=== PATIENT | male | born 1955 | race Caucasian/White ===

== ENCOUNTER → 2017-01-10 | Outpatient (CLI) | payer OTHER ==
[2017-01-10 15:35] LABS: Anisocytosis Slight; CH 33.3; CHCM 34.1; HCT 22.1 % (39.0-53.0); HDW 4.19; HGB 7.5 gm/dL (13.0-17.5); MCH 33.4 pg (25.0-35.0); MCV 98.4 fL (80.0-100.0); Macrocytosis Slight; Mean Platelet Volume 9.3; Poikilocytosis Moderate; RBC 2.25 m/uL (4.30-5.90); RDW 19.1 % (11.5-15.5); WBC 2.2 k/uL (3.8-10.6)
[2017-01-10 15:45] LABS: INR 1.3 (<1.1); Prothrombin Time 12.9 sec (9.0-12.0)
[2017-01-10 15:49] LABS: ALT 26 U/L (21-72); AST 31 U/L (17-59); Alkaline Phosphatase 119 U/L (38-126); Anion Gap 11 mmol/L; Blood Urea Nitrogen 32 mg/dL (9-20); Calcium 9.2 mg/dL (8.4-10.2); Carbon Dioxide 24 mmol/L (22-30); Chloride 105 mmol/L (98-107); Glucose 119 mg/dL (74-99); Non-African American GFR(MDRD) 56 (>60 ml/min/1.73 sqM); Potassium 4.4 mmol/L (3.5-5.1); Sodium 140 mmol/L (137-145); Total Bilirubin 9.2 mg/dL (0.2-1.3); Total Protein 7.5 g/dL (6.3-8.2)
== END | disposition home or self-care (01) ==
LOC: LABWHC1 15:14
PROVIDERS: ATTEND Internal Medicine Gastroenterology
DX: K74.60 Unspecified cirrhosis of liver (principal)
CPT/HCPCS: 36415; 80053; 85027; 85610

== ENCOUNTER → 2017-03-21 | Outpatient (CLI) | payer OTHER ==
[2017-03-24 06:48] LABS: Cotinine <2.0 ng/mL (<2.0); Nicotine <2.0 ng/mL (<2.0)
== END | disposition home or self-care (01) ==
LOC: LABWHC1 11:55
PROVIDERS: ATTEND Family Medicine
DX: Z13.9 Encounter for screening, unspecified (principal); K74.69 Other cirrhosis of liver
CPT/HCPCS: 36415; G0480; 80323

== ENCOUNTER → 2017-04-06 | Outpatient (CLI) | payer OTHER ==
[2017-04-06 14:07] LABS: INR 1.4 (<1.2); Prothrombin Time 13.4 sec (9.0-12.0)
[2017-04-06 14:17] LABS: ALT 34 U/L (21-72); AST 31 U/L (17-59); Alkaline Phosphatase 139 U/L (38-126); Anion Gap 10 mmol/L; Blood Urea Nitrogen 36 mg/dL (9-20); Calcium 8.9 mg/dL (8.4-10.2); Carbon Dioxide 25 mmol/L (22-30); Chloride 101 mmol/L (98-107); Glucose 404 mg/dL (74-99); Non-African American GFR(MDRD) 52 (>60 ml/min/1.73 sqM); Potassium 4.8 mmol/L (3.5-5.1); Sodium 136 mmol/L (137-145); Total Bilirubin 7.4 mg/dL (0.2-1.3); Total Protein 6.9 g/dL (6.3-8.2)
[2017-04-06 14:34] LABS: Anisocytosis Slight; CH 32.1; CHCM 33.1; HCT 22.2 % (39.0-53.0); HDW 4.22; HGB 7.6 gm/dL (13.0-17.5); Hypochromasia Slight; MCH 33.4 pg (25.0-35.0); MCHC 34.1 g/dL (31.0-37.0); MCV 97.8 fL (80.0-100.0); Macrocytosis Slight; Mean Platelet Volume 8.5; Poikilocytosis Moderate; RBC 2.27 m/uL (4.30-5.90); RDW 18.6 % (11.5-15.5); WBC 2.2 k/uL (3.8-10.6)
[2017-04-07 14:42] LABS: Hepatitis B Virus DNA DETECTED (Not detected); Hepatitis B Virus DNA, Quant 10 IU/mL (<10)
== END | disposition home or self-care (01) ==
LOC: LABWHC1 13:03
PROVIDERS: ATTEND Internal Medicine Gastroenterology
DX: K74.60 Unspecified cirrhosis of liver (principal); B18.1 Chronic viral hepatitis B without delta-agent
CPT/HCPCS: 36415; 80053; 82105; 85027; 85610; 86707; 87350; 87517

== ENCOUNTER → 2017-06-21 | Outpatient (CLI) | payer OTHER ==
[2017-06-21 13:12] LABS: INR 1.4 (<1.2); Prothrombin Time 13.8 sec (9.0-12.0)
[2017-06-21 13:18] LABS: Anisocytosis Slight; Basophils % (A) 1 %; CH 31.3; CHCM 32.6; Eosinophils % (A) 2 %; HCT 22.8 % (39.0-53.0); HDW 3.98; HGB 7.5 gm/dL (13.0-17.5); Hypochromasia Slight; Luc # (Auto) 0.05; Luc % (Auto) 3; Lymphocytes # (A) 0.5 k/uL (1.0-4.8); Lymphocytes % (A) 26 %; MCHC 33.1 g/dL (31.0-37.0); MCV 96.7 fL (80.0-100.0); Macrocytosis Slight; Mean Platelet Volume 10.3; Monocytes # (A) 0.2 k/uL (0-1.0); Monocytes % (A) 9 %; Neutrophils # (A) 1.3 k/uL (1.3-7.7); Neutrophils % (A) 60 %; Poikilocytosis Slight; RBC 2.36 m/uL (4.30-5.90); RDW 19.5 % (11.5-15.5); WBC 2.1 k/uL (3.8-10.6); WBC (Perox) 2.28
[2017-06-21 13:58] LABS: ALT 32 U/L (21-72); AST 28 U/L (17-59); Alkaline Phosphatase 124 U/L (38-126); Anion Gap 8 mmol/L; Blood Urea Nitrogen 22 mg/dL (9-20); Calcium 9.1 mg/dL (8.4-10.2); Carbon Dioxide 25 mmol/L (22-30); Chloride 102 mmol/L (98-107); Glucose 290 mg/dL (74-99); Non-African American GFR(MDRD) >60 (>60 ml/min/1.73 sqM); Potassium 4.2 mmol/L (3.5-5.1); Sodium 135 mmol/L (137-145); Total Bilirubin 6.6 mg/dL (0.2-1.3); Total Protein 6.7 g/dL (6.3-8.2)
[2017-06-23 07:53] LABS: Cotinine <2.0 ng/mL (<2.0); Nicotine <2.0 ng/mL (<2.0)
== END | disposition home or self-care (01) ==
LOC: LABWHC1 12:15
PROVIDERS: ATTEND Family Medicine
DX: D64.9 Anemia, unspecified (principal); K74.60 Unspecified cirrhosis of liver; F17.200 Nicotine dependence, unspecified, uncomplicated
CPT/HCPCS: 80053; 85025; 85610; 36415; G0480; 80323

== ENCOUNTER → 2017-08-17 | Outpatient (CLI) | payer OTHER ==
[2017-08-17 11:20] LABS: ALT 38 U/L (21-72); AST 31 U/L (17-59); Albumin 3.7 g/dL (3.5-5.0); Alkaline Phosphatase 135 U/L (38-126); Anion Gap 12 mmol/L; Blood Urea Nitrogen 43 mg/dL (9-20); Carbon Dioxide 25 mmol/L (22-30); Chloride 101 mmol/L (98-107); Glucose 267 mg/dL (74-99); Potassium 4.7 mmol/L (3.5-5.1); Sodium 138 mmol/L (137-145); Total Bilirubin 7.5 mg/dL (0.2-1.3); Total Protein 6.5 g/dL (6.3-8.2)
[2017-08-17 11:22] LABS: INR 1.4 (<1.2); Prothrombin Time 13.1 sec (9.0-12.0)
[2017-08-17 12:57] LABS: Anisocytosis Slight; HCT 21.4 % (39.0-53.0); HGB 7.2 gm/dL (13.0-17.5); MCH 32.2 pg (25.0-35.0); MCHC 33.5 g/dL (31.0-37.0); MCV 96.2 fL (80.0-100.0); Macrocytosis Slight; Mean Platelet Volume 8.9; Poikilocytosis Moderate; RBC 2.23 m/uL (4.30-5.90); RDW 19.2 % (11.5-15.5); WBC 2.1 k/uL (3.8-10.6)
[2017-08-17 14:53] LABS: Platelet Count 38 k/uL (150-450)
== END | disposition home or self-care (01) ==
LOC: LABWHC1 10:18
PROVIDERS: ATTEND Internal Medicine Gastroenterology
DX: K74.60 Unspecified cirrhosis of liver (principal)
CPT/HCPCS: 36415; 80053; 85027; 85610

== ENCOUNTER → 2017-08-23 | Outpatient (CLI) | payer OTHER ==
--- NOTE | 2017-08-23 13:51 | BD ---
EXAMINATION TYPE: MG DEXA axial skeleton. DATE OF EXAM: 08/23/2017 COMPARISON: none CLINICAL HISTORY: awaiting liver transplant pre procedure Height: 5'8 Weight: 262 FRAX RISK QUESTIONS: Alcohol (3 or more units per day): no Family History (Parent hip fracture): no Glucocorticoids (More than 3mos): no (Ex: prednisone, prednisolone, methylprednisolone, dexamethasone, and hydrocortisone). History of Fracture in Adulthood: no Secondary Osteoporosis: 1. Type 1 Diabetes: no 2. Hyperthyroidism: no 3. Menopause before 45: na 4. Malnutrition: no 5. Chronic liver disease: yes Rheumatoid Arthritis: no Current Tobacco Use: no RISK FACTORS HISTORY OF: Lost more than 2 inches in height since high school: Poor Health: waiting for liver transplant MEDICATIONS: Additional Medications: waiting for liver transplant,pain, water pill, Additional History: waiting for liver transplant EXAM MEASUREMENTS: Bone mineral densitometry was performed using the [employer]. Bone mineral density as measured about the Lumbar spine is: ----- L1-L4(G/cm2): 1.142 T Score Values are as follows: ----- L2: -1.6 ----- L3: 0.7 ----- L4: 0.0 ----- L1-L4: -0.3 Bone mineral density about the R hip (g/cm2): 0.743 Bone mineral density about the L hip (g/cm2): 0.862 T Score values are as follows: -----R Neck: -2.1 -----L Neck: -1.3 -----R Total: -1.4 -----L Total: -0.6 IMPRESSION: Osteopenia (T Score between -2.5 and -1 as noted by T score values at femoral neck level in both hips . There is slightly increased risk of fracture and the patient may be considered for treatment. Puneet arthur 2-5 years. NOTE: T-SCORE=SD OF THE YOUNG ADULT MEAN.
== END | disposition home or self-care (01) ==
LOC: RADBDWWP 12:38
PROVIDERS: ATTEND Internal Medicine Gastroenterology
DX: Z01.818 Encounter for other preprocedural examination (principal); M85.851 Other specified disorders of bone density and structure, right thigh; M85.852 Other specified disorders of bone density and structure, left thigh; K74.60 Unspecified cirrhosis of liver; Z76.82 Awaiting organ transplant status
CPT/HCPCS: 77080

== ENCOUNTER → 2017-10-18 | Outpatient (CLI) | payer OTHER ==
[2017-10-18 11:25] LABS: Albumin 3.5 g/dL (3.5-5.0); Calcium 8.8 mg/dL (8.4-10.2); Potassium 4.4 mmol/L (3.5-5.1); Total Bilirubin 5.1 mg/dL (0.2-1.3); Total Protein 6.3 g/dL (6.3-8.2)
[2017-10-18 11:43] LABS: Anisocytosis Slight; HCT 23.8 % (39.0-53.0); HGB 8.2 gm/dL (13.0-17.5); MCH 33.5 pg (25.0-35.0); MCHC 34.3 g/dL (31.0-37.0); MCV 97.7 fL (80.0-100.0); Macrocytosis Slight; Mean Platelet Volume 8.3; Poikilocytosis Moderate; RBC 2.44 m/uL (4.30-5.90); RDW 18.2 % (11.5-15.5); WBC 2.9 k/uL (3.8-10.6)
[2017-10-18 11:51] LABS: Platelet Count 36 k/uL (150-450)
[2017-10-18 12:26] LABS: INR 1.3 (<1.2); Prothrombin Time 12.5 sec (9.0-12.0)
== END | disposition home or self-care (01) ==
LOC: LABWHC1 10:46
PROVIDERS: ATTEND Internal Medicine Gastroenterology
DX: K74.60 Unspecified cirrhosis of liver (principal)
CPT/HCPCS: 36415; 80053; 85027; 85610

== ENCOUNTER 2017-11-18 12:40 | Emergency (ER) | payer OTHER ==
--- NOTE | 2017-11-18 13:49 | ED ---
General Adult HPI - General Chief complaint: Recheck/Abnormal Lab/Rx Stated complaint: Fall Time Seen by Provider: 11/18/17 12:56 Source: patient Mode of arrival: wheelchair Limitations: no limitations - History of Present Illness Initial comments: Patient is a 62-year-old male presenting to the emergency department for evaluation for liver disease. Patient is currently being evaluated by [facility] for possible liver transplant and was seen by his neurologist today and sent here for further evaluation. Sisters at bedside and states that he is progressively getting worse in that his functional status is decreased and then he cannot do simple tasks as he wants could. He also appears to be more jaundiced. Patient admits to diffuse pain including back pain but is unable to give complete review of systems due to mentation. - Related Data Home Medications Medication Instructions Recorded Confirmed Entecavir [Baraclude] 0.5 mg PO DAILY 03/10/14 11/18/17 DULoxetine HCL [Cymbalta] 60 mg PO BID 04/14/15 11/18/17 Ranitidine HCl [Zantac] 150 mg PO BID 04/14/15 11/18/17 Tamsulosin HCl [Flomax] 0.4 mg PO HS 04/14/15 11/18/17 Lactulose 20 gm PO TID-W/MEALS 07/06/16 11/18/17 Atorvastatin [Lipitor] 10 mg PO HS 04/16/17 11/18/17 Furosemide [Lasix] 20 mg PO TID 11/18/17 11/18/17 HYDROmorphone [Dilaudid] 2 mg PO TID 11/18/17 11/18/17 Lisinopril [Zestril] 2.5 mg PO DAILY 11/18/17 11/18/17 [place]-3 Fatty Acids/Fish Oil [Fish 1 cap PO DAILY 11/18/17 11/18/17 Oil 1,000 mg Softgel] Omeprazole [PriLOSEC] 20 mg PO BID 11/18/17 11/18/17 Requip (Unknown Dose) 1 tab PO HS 11/18/17 11/18/17 Vit C/E/Zn/Coppr/Lutein/Zeaxan 1 cap PO BID 11/18/17 11/18/17 [Preservision Areds 2 Softgel] Previous Rx's Medication Instructions Recorded Gabapentin [Neurontin] 300 mg PO TID #90 cap 04/18/17 Spironolactone [Aldactone] 100 mg PO BID #60 tab 04/18/17 Allergies Allergy/AdvReac Type Severity Reaction Status Date / Time Iodinated Contrast- Oral and Allergy Rash/Hives Verified 11/18/17 13:15 IV Dye shellfish derived [Shellfish] AdvReac complications Verified 11/18/17 13:15 with liver Review of Systems ROS Statement: Those systems with pertinent positive or pertinent negative responses have been documented in the HPI. Unable to give complete review of systems secondary to mental status. Musculoskeletal: Positive for back pain Skin: Positive for color change. ROS Other: All systems not noted in ROS Statement are negative. Past Medical History Past Medical History: Diabetes Mellitus, Fibromyalgia, Liver Disease, Rheumatoid Arthritis (RA) Additional Past Medical History / Comment(s): neck/back pain, neuropathy, hep B , [place], cirrhosis of liver. 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 General Exam - General Exam Comments Initial Comments: Physical Exam Constitutional: Pt is oriented to person, place,. Pt appears well-developed. No distress. HENT: Head: Normocephalic and atraumatic. Eyes: EOM are normal. Scleral icterus present bilaterally Neck: Normal range of motion. Neck supple. Cardiovascular: Normal rate, regular rhythm, S1 normal, S2 normal and normal heart sounds. Exam reveals no gallop and no friction rub. No murmur heard. Pulmonary/Chest: Effort normal and breath sounds normal. No tachypnea and no bradypnea. No respiratory distress. No wheezes or rales noted. Abdominal: Soft. Bowel sounds are normal. Pt exhibits no shifting dullness, no distension, no pulsatile liver, no fluid wave, no abdominal bruit and no ascites. There is no tenderness. There is no rigidity, no rebound, no guarding, no tenderness at McBurney's point and negative Manriquez's sign. Musculoskeletal: Normal range of motion. Neurological: Pt is alert and oriented to person, place, . No cranial nerve deficit. Asterixis present Skin: Skin is warm and dry. No rash noted. Pt is not diaphoretic. No erythema. Jaundice present in face and thorax Psychiatric: Not able to express thoughts. Limitations: no limitations Course Vital Signs 11/18/17 12:51 Temperature 99.6 F Pulse Rate 87 Respiratory 18 Rate Blood Pressure 128/57 O2 Sat by Pulse 98 Oximetry Medical Decision Making - Medical Decision Making Laboratory studies revealed that there is no significant leukocytosis and hemoglobin also low at 7.2, was at baseline. There is also evidence of thrombocytopenia with platelet count of 52 but this again appears to be at baseline. Coagulation studies showed that her INR was 1.3 and PT 12.5 and PTT 24.5. Additionally, ammonia level was measured at 68 and bilirubin at 7.7. The office of Dr. Patterson, who is the patient's liver specialist, was contacted and results were discussed with them. They advised that the patient would be likely consider to be added to the liver transplant list on Tuesday. They also felt that disposition discretion will be left to the ED physician but based on the laboratory studies discuss, there was no clear evidence that the patient should be admitted or placed in observation. Chest x-ray was also performed and showed no evidence of infiltrate.Explained all labs and diagnostic test results and that we will discharge the patient home and patient is to follow up with PCP in 1-2 days and return to the ED if symptoms worsen. Pt's sister is agreeable to plan. - Lab Data Result diagrams: 11/18/17 13:29 11/18/17 13:29 Lab Results 11/18/17 11/18/17 11/18/17 Range/Units 13:29 13:29 13:29 WBC 4.0 (3.8-10.6) k/uL RBC 2.16 L (4.30-5.90) m/uL Hgb 7.2 L (13.0-17.5) gm/dL Hct 20.6 L (39.0-53.0) % MCV 95.2 (80.0-100.0) fL MCH 33.2 (25.0-35.0) pg MCHC 34.8 (31.0-37.0) g/dL RDW 18.8 H (11.5-15.5) % Plt Count 52 L (150-450) k/uL Neutrophils % 67 % Lymphocytes % 20 % Monocytes % 9 % Eosinophils % 1 % Basophils % 0 % Neutrophils # 2.7 (1.3-7.7) k/uL Lymphocytes # 0.8 L (1.0-4.8) k/uL Monocytes # 0.3 (0-1.0) k/uL Eosinophils # 0.0 (0-0.7) k/uL Basophils # 0.0 (0-0.2) k/uL Manual Slide Review Performed Hyperchromasia Slight Poikilocytosis Marked Anisocytosis Slight Macrocytosis Slight PT (9.0-12.0) sec INR (<1.2) APTT (22.0-30.0) sec Sodium 141 (137-145) mmol/L Potassium 4.9 (3.5-5.1) mmol/L Chloride 105 (98-107) mmol/L Carbon Dioxide 24 (22-30) mmol/L Anion Gap 12 mmol/L BUN 36 H (9-20) mg/dL Creatinine 1.50 H (0.66-1.25) mg/dL Est GFR (CKD-EPI)AfAm 57 (>60 ml/min/1.73 sqM) Est GFR (CKD-EPI)NonAf 49 (>60 ml/min/1.73 sqM) Glucose 167 H (74-99) mg/dL Calcium 9.5 (8.4-10.2) mg/dL Magnesium 2.2 (1.6-2.3) mg/dL Total Bilirubin 7.7 H (0.2-1.3) mg/dL AST 23 (17-59) U/L ALT 20 L (21-72) U/L Alkaline Phosphatase 112 (38-126) U/L Ammonia (<30) umol/L Troponin I <0.012 (0.000-0.034) ng/mL Total Protein 6.4 (6.3-8.2) g/dL Albumin 3.7 (3.5-5.0) g/dL Lipase 144 (23-300) U/L Urine Color Urine Appearance (Clear) Urine pH (5.0-8.0) Ur Specific [place] (1.001-1.035) Urine Protein (Negative) Urine Glucose (UA) (Negative) Urine Ketones (Negative) Urine Blood (Negative) Urine Nitrite (Negative) Urine Bilirubin (Negative) Urine Urobilinogen (<2.0) mg/dL Ur Leukocyte Esterase (Negative) Urine WBC (0-5) /hpf Urine Bacteria (None) /hpf Hyaline Casts (0-2) /lpf Urine Mucus (None) /hpf 11/18/17 11/18/17 11/18/17 Range/Units 13:29 13:50 13:58 WBC (3.8-10.6) k/uL RBC (4.30-5.90) m/uL Hgb (13.0-17.5) gm/dL Hct (39.0-53.0) % MCV (80.0-100.0) fL MCH (25.0-35.0) pg MCHC (31.0-37.0) g/dL RDW (11.5-15.5) % Plt Count (150-450) k/uL Neutrophils % % Lymphocytes % % Monocytes % % Eosinophils % % Basophils % % Neutrophils # (1.3-7.7) k/uL Lymphocytes # (1.0-4.8) k/uL Monocytes # (0-1.0) k/uL Eosinophils # (0-0.7) k/uL Basophils # (0-0.2) k/uL Manual Slide Review Hyperchromasia Poikilocytosis Anisocytosis Macrocytosis PT 12.5 H (9.0-12.0) sec INR 1.3 H (<1.2) APTT 24.5 (22.0-30.0) sec Sodium (137-145) mmol/L Potassium (3.5-5.1) mmol/L Chloride (98-107) mmol/L Carbon Dioxide (22-30) mmol/L Anion Gap mmol/L BUN (9-20) mg/dL Creatinine (0.66-1.25) mg/dL Est GFR (CKD-EPI)AfAm (>60 ml/min/1.73 sqM) Est GFR (CKD-EPI)NonAf (>60 ml/min/1.73 sqM) Glucose (74-99) mg/dL Calcium (8.4-10.2) mg/dL Magnesium (1.6-2.3) mg/dL Total Bilirubin (0.2-1.3) mg/dL AST (17-59) U/L ALT (21-72) U/L Alkaline Phosphatase (38-126) U/L Ammonia 68 H (<30) umol/L Troponin I (0.000-0.034) ng/mL Total Protein (6.3-8.2) g/dL Albumin (3.5-5.0) g/dL Lipase (23-300) U/L Urine Color Yellow Urine Appearance Clear (Clear) Urine pH 6.0 (5.0-8.0) Ur Specific [place] 1.007 (1.001-1.035) Urine Protein Negative (Negative) Urine Glucose (UA) Negative (Negative) Urine Ketones Negative (Negative) Urine Blood Negative (Negative) Urine Nitrite Negative (Negative) Urine Bilirubin Negative (Negative) Urine Urobilinogen 2.0 (<2.0) mg/dL Ur Leukocyte Esterase Trace H (Negative) Urine WBC 1 (0-5) /hpf Urine Bacteria Rare H (None) /hpf Hyaline Casts 7 H (0-2) /lpf Urine Mucus Rare H (None) /hpf Disposition Clinical Impression: Thrombocytopenia, Anemia, Jaundice Disposition: HOME SELF-CARE Condition: Fair Instructions: Fulminant Hepatic Failure (ED) Is patient prescribed a controlled substance at d/c from ED?: No Referrals: Ivan Merchant DO [Primary Care Provider] - 1-2 days Kael Patterson MD [REFERRING] - 1-2 days Time of Disposition: 15:43
[2017-11-18 14:04] LABS: INR 1.3 (<1.2); Partial Thromboplastin Time 24.5 sec (22.0-30.0); Prothrombin Time 12.5 sec (9.0-12.0)
[2017-11-18 14:08] LABS: Appearance,Urine Clear (Clear); Bacteria,Urine Rare /hpf; Bilirubin,Urine Negative (Negative); Blood,Urine Negative (Negative); Color,Urine Yellow; Glucose,Urine (UA) Negative (Negative); Hyaline Casts,Urine 7 /lpf (0-2); Ketones,Urine Negative (Negative); Leukocyte Esterase,Urine Trace (Negative); Mucus,Urine Rare /hpf; Nitrite,Urine Negative (Negative); Protein,Urine Negative (Negative); Specific Gravity,Urine 1.007 (1.001-1.035); WBC,Urine 1 /hpf (0-5)
[2017-11-18 14:09] LABS: Albumin 3.7 g/dL (3.5-5.0); Calcium 9.5 mg/dL (8.4-10.2); Magnesium 2.2 mg/dL (1.6-2.3); Potassium 4.9 mmol/L (3.5-5.1); Total Bilirubin 7.7 mg/dL (0.2-1.3); Total Protein 6.4 g/dL (6.3-8.2)
[2017-11-18 14:31] LABS: Anisocytosis Slight; Basophils % (A) 0 %; Eosinophils % (A) 1 %; HCT 20.6 % (39.0-53.0); HGB 7.2 gm/dL (13.0-17.5); Hyperchromasia Slight; Lymphocytes # (A) 0.8 k/uL (1.0-4.8); Lymphocytes % (A) 20 %; MCH 33.2 pg (25.0-35.0); MCHC 34.8 g/dL (31.0-37.0); MCV 95.2 fL (80.0-100.0); Macrocytosis Slight; Mean Platelet Volume 8.6; Monocytes # (A) 0.3 k/uL (0-1.0); Monocytes % (A) 9 %; Neutrophils # (A) 2.7 k/uL (1.3-7.7); Neutrophils % (A) 67 %; Poikilocytosis Marked; RBC 2.16 m/uL (4.30-5.90); RDW 18.8 % (11.5-15.5)
[2017-11-18 14:50] LABS: Platelet Count 52 k/uL (150-450)
--- NOTE | 2017-11-18 15:36 | XR ---
EXAMINATION TYPE: XR chest 2V DATE OF EXAM: 11/18/2017 COMPARISON: Chest x-ray April 16, 2017. HISTORY: Chest pain. TECHNIQUE: Frontal and lateral views of the chest are obtained. FINDINGS: Low lung volumes with elevated left hemidiaphragm is redemonstrated. There is new left basi lar lateral linear atelectasis. Right lung is clear. There is no pleural effusion or pneumothorax see n bilaterally. The cardiac silhouette size is stable and upper limits of normal. The osseous struc tures are intact. IMPRESSION: New lateral left basilar linear atelectasis.
[2017-11-18 15:51] VITALS: BP 137/64; PULSE 75; RESP 16; TEMP 97.6
== END 2017-11-18 15:54 | disposition home or self-care (01) ==
LOC: EC 12:40
DX: D69.6 Thrombocytopenia, unspecified (principal); D64.9 Anemia, unspecified; R17 Unspecified jaundice; M54.9 Dorsalgia, unspecified; E11.9 Type 2 diabetes mellitus without complications; M79.7 Fibromyalgia; M06.9 Rheumatoid arthritis, unspecified; E11.40 Type 2 diabetes mellitus with diabetic neuropathy, unspecified; Z86.19 Personal history of other infectious and parasitic diseases; Z87.19 Personal history of other diseases of the digestive system; Z87.891 Personal history of nicotine dependence; Z79.891 Long term (current) use of opiate analgesic; Z79.899 Other long term (current) drug therapy; Z91.041 Radiographic dye allergy status; Z91.013 Allergy to seafood
CPT/HCPCS: 36415; 71046; 80053; 81001; 82140; 83690; 83735; 84484; 85025; 85610; 85730; 99283

== ENCOUNTER 2017-12-08 10:09 | Inpatient (IN) | payer OTHER ==
--- NOTE | 2017-12-08 11:05 | ED ---
Recheck HPI - General Chief Complaint: Recheck/Abnormal Lab/Rx Stated Complaint: Needs blood transfusion Time Seen by Provider: 12/08/17 10:50 Source: patient, RN notes reviewed Mode of arrival: wheelchair Limitations: no limitations - History of Present Illness Initial Comments: This is a 62-year-old male with a history of liver failure who was called by his physician's office at [facility] told to come the hospital for blood transfusion. He was told he had a hemoglobin of about 6.3. He recently was admitted to this hospital for elevated ammonia levels. He has had some confusion today no fevers chills nausea vomiting sweats or other symptoms. He is on the transplant list at [facility] the patient has not had any GI bleeding his believes he just not making the cells MD Complaint: abnormal lab - Related Data Home Medications Medication Instructions Recorded Confirmed Entecavir [Baraclude] 0.5 mg PO DAILY 03/10/14 12/08/17 DULoxetine HCL [Cymbalta] 60 mg PO BID 04/14/15 12/08/17 Ranitidine HCl [Zantac] 150 mg PO BID 04/14/15 12/08/17 Tamsulosin HCl [Flomax] 0.4 mg PO HS 04/14/15 12/08/17 Lactulose 20 gm PO TID-W/MEALS 07/06/16 12/08/17 Atorvastatin [Lipitor] 10 mg PO HS 04/16/17 12/08/17 Furosemide [Lasix] 20 mg PO TID 11/18/17 12/08/17 HYDROmorphone [Dilaudid] 2 mg PO TID 11/18/17 12/08/17 Lisinopril [Zestril] 2.5 mg PO DAILY 11/18/17 12/08/17 [place]-3 Fatty Acids/Fish Oil [Fish 1 cap PO DAILY 11/18/17 12/08/17 Oil 1,000 mg Softgel] Omeprazole [PriLOSEC] 20 mg PO BID 11/18/17 12/08/17 Vit C/E/Zn/Coppr/Lutein/Zeaxan 1 cap PO BID 11/18/17 12/08/17 [Preservision Areds 2 Softgel] rOPINIRole HCL [Requip] 0.5 mg PO HS 12/08/17 12/08/17 Previous Rx's Medication Instructions Recorded Gabapentin [Neurontin] 300 mg PO TID #90 cap 04/18/17 Spironolactone [Aldactone] 100 mg PO BID #60 tab 04/18/17 Allergies Allergy/AdvReac Type Severity Reaction Status Date / Time Iodinated Contrast- Oral and Allergy Rash/Hives Verified 12/08/17 11:10 IV Dye shellfish derived [Shellfish] AdvReac complications Verified 12/08/17 11:10 with liver Review of Systems ROS Statement: Those systems with pertinent positive or pertinent negative responses have been documented in the HPI. ROS Other: All systems not noted in ROS Statement are negative. Past Medical History Past Medical History: Diabetes Mellitus, Fibromyalgia, Liver Disease, Rheumatoid Arthritis (RA) Additional Past Medical History / Comment(s): neck/back pain, neuropathy, hep B , [place], cirrhosis of liver. 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 General Exam - General Exam Comments Initial Comments: Is a well-developed well-nourished awake alert slightly lethargic male Limitations: no limitations General appearance: alert, in no apparent distress Head exam: Present: atraumatic, normocephalic, normal inspection Eye exam: Present: normal appearance, PERRL, EOMI. Absent: scleral icterus, conjunctival injection, periorbital swelling ENT exam: Present: normal exam, mucous membranes moist Neck exam: Present: normal inspection. Absent: tenderness, meningismus, lymphadenopathy Respiratory exam: Present: normal lung sounds bilaterally. Absent: respiratory distress, wheezes, rales, rhonchi, stridor Cardiovascular Exam: Present: regular rate, normal rhythm, normal heart sounds. Absent: systolic murmur, diastolic murmur, rubs, gallop, clicks GI/Abdominal exam: Present: soft, normal bowel sounds. Absent: distended, tenderness, guarding, rebound, rigid Rectal exam: Present: deferred Extremities exam: Present: normal inspection, full ROM, normal capillary refill. Absent: tenderness, pedal edema, joint swelling, calf tenderness Back exam: Present: normal inspection Neurological exam: Present: alert, oriented X3, CN II-XII intact Psychiatric exam: Present: normal affect, normal mood Skin exam: Present: warm, dry, intact, pallor. Absent: rash Course Vital Signs 12/08/17 12/08/17 12/08/17 10:27 11:37 12:28 Temperature 98.8 F Pulse Rate 70 74 98 Respiratory 20 18 18 Rate Blood Pressure 112/54 110/52 105/49 O2 Sat by Pulse 99 100 98 Oximetry 12/08/17 12/08/17 12/08/17 13:24 13:34 14:04 Temperature 97.3 F L 98.3 F 97.4 F L Pulse Rate 69 69 69 Respiratory 18 18 18 Rate Blood Pressure 105/51 116/56 111/52 O2 Sat by Pulse 100 99 100 Oximetry 12/08/17 12/08/17 12/08/17 15:04 15:19 15:29 Temperature 97.1 F L 98 F 97.2 F L Pulse Rate 70 71 73 Respiratory 16 16 18 Rate Blood Pressure 113/55 113/56 136/65 O2 Sat by Pulse 98 97 Oximetry 12/08/17 15:50 Temperature 97.2 F L Pulse Rate 73 Respiratory 18 Rate Blood Pressure 136/65 O2 Sat by Pulse Oximetry - Reevaluation(s) Reevaluation #1: 12/08/17 16:26 The patient continues be somewhat confused IV blood transfusions continuing however. Patient does seem to be tolerating this well Medical Decision Making - Medical Decision Making The patient tolerated blood transfusion well he does have continued confusion is ammonia level [id number] he will be admitted I did discuss this with his sisters. - Lab Data Result diagrams: 12/08/17 10:54 12/08/17 10:54 Lab Results 12/08/17 12/08/17 12/08/17 Range/Units 10:54 10:54 10:54 WBC 2.8 L (3.8-10.6) k/uL RBC 2.01 L (4.30-5.90) m/uL Hgb 6.6 L* (13.0-17.5) gm/dL Hct 19.0 L* (39.0-53.0) % MCV 94.7 (80.0-100.0) fL MCH 33.0 (25.0-35.0) pg MCHC 34.8 (31.0-37.0) g/dL RDW 19.3 H (11.5-15.5) % Plt Count 48 L* (150-450) k/uL Neutrophils % 63 % Lymphocytes % 24 % Monocytes % 7 % Eosinophils % 3 % Basophils % 1 % Neutrophils # 1.7 (1.3-7.7) k/uL Lymphocytes # 0.7 L (1.0-4.8) k/uL Monocytes # 0.2 (0-1.0) k/uL Eosinophils # 0.1 (0-0.7) k/uL Basophils # 0.0 (0-0.2) k/uL Hyperchromasia Slight Poikilocytosis Moderate Anisocytosis Slight Macrocytosis Slight Sodium (137-145) mmol/L Potassium (3.5-5.1) mmol/L Chloride (98-107) mmol/L Carbon Dioxide (22-30) mmol/L Anion Gap mmol/L BUN (9-20) mg/dL Creatinine (0.66-1.25) mg/dL Est GFR (CKD-EPI)AfAm (>60 ml/min/1.73 sqM) Est GFR (CKD-EPI)NonAf (>60 ml/min/1.73 sqM) Glucose (74-99) mg/dL Calcium (8.4-10.2) mg/dL Magnesium (1.6-2.3) mg/dL Total Bilirubin (0.2-1.3) mg/dL AST (17-59) U/L ALT (21-72) U/L Alkaline Phosphatase (38-126) U/L Ammonia (<30) umol/L Total Creatine Kinase 41 L (55-170) U/L CK-MB (CK-2) 1.5 (0.0-2.4) ng/mL CK-MB (CK-2) Rel Index 3.7 Troponin I <0.012 (0.000-0.034) ng/mL Total Protein (6.3-8.2) g/dL Albumin (3.5-5.0) g/dL Urine Color Urine Appearance (Clear) Urine pH (5.0-8.0) Ur Specific [place] (1.001-1.035) Urine Protein (Negative) Urine Glucose (UA) (Negative) Urine Ketones (Negative) Urine Blood (Negative) Urine Nitrite (Negative) Urine Bilirubin (Negative) Urine Urobilinogen (<2.0) mg/dL Ur Leukocyte Esterase (Negative) Blood Type AB Negative Blood Type Recheck No Antibody Screen NEGATIVE Crossmatch See Detail Spec Expiration Date 12/11/2017 - 235312/08/17 12/08/17 12/08/17 Range/Units 10:54 12:03 15:26 WBC (3.8-10.6) k/uL RBC (4.30-5.90) m/uL Hgb (13.0-17.5) gm/dL Hct (39.0-53.0) % MCV (80.0-100.0) fL MCH (25.0-35.0) pg MCHC (31.0-37.0) g/dL RDW (11.5-15.5) % Plt Count (150-450) k/uL Neutrophils % % Lymphocytes % % Monocytes % % Eosinophils % % Basophils % % Neutrophils # (1.3-7.7) k/uL Lymphocytes # (1.0-4.8) k/uL Monocytes # (0-1.0) k/uL Eosinophils # (0-0.7) k/uL Basophils # (0-0.2) k/uL Hyperchromasia Poikilocytosis Anisocytosis Macrocytosis Sodium 140 (137-145) mmol/L Potassium 4.9 (3.5-5.1) mmol/L Chloride 106 (98-107) mmol/L Carbon Dioxide 21 L (22-30) mmol/L Anion Gap 13 mmol/L BUN 40 H (9-20) mg/dL Creatinine 1.60 H (0.66-1.25) mg/dL Est GFR (CKD-EPI)AfAm 53 (>60 ml/min/1.73 sqM) Est GFR (CKD-EPI)NonAf 46 (>60 ml/min/1.73 sqM) Glucose 193 H (74-99) mg/dL Calcium 8.8 (8.4-10.2) mg/dL Magnesium 2.2 (1.6-2.3) mg/dL Total Bilirubin 8.0 H (0.2-1.3) mg/dL AST 24 (17-59) U/L ALT 33 (21-72) U/L Alkaline Phosphatase 199 H (38-126) U/L Ammonia 72 H (<30) umol/L Total Creatine Kinase (55-170) U/L CK-MB (CK-2) (0.0-2.4) ng/mL CK-MB (CK-2) Rel Index Troponin I (0.000-0.034) ng/mL Total Protein 6.1 L (6.3-8.2) g/dL Albumin 3.5 (3.5-5.0) g/dL Urine Color Yellow Urine Appearance Clear (Clear) Urine pH 5.0 (5.0-8.0) Ur Specific [place] 1.007 (1.001-1.035) Urine Protein Negative (Negative) Urine Glucose (UA) Negative (Negative) Urine Ketones Negative (Negative) Urine Blood Negative (Negative) Urine Nitrite Negative (Negative) Urine Bilirubin Negative (Negative) Urine Urobilinogen <2.0 (<2.0) mg/dL Ur Leukocyte Esterase Negative (Negative) Blood Type Blood Type Recheck Antibody Screen Crossmatch Spec Expiration Date - EKG Data -: EKG Interpreted by Me (EKG shows normal sinus rhythm a 73 appear interval 150 QRS duration 90 QT s) - Radiology Data Radiology results: report reviewed, image reviewed Disposition Clinical Impression: Hepatic encephalopathy syndrome, Anemia Disposition: ADMITTED IP TO THIS [facility] Condition: Stable Referrals: Ivan Merchant DO [Primary Care Provider] - 1-2 days
[2017-12-08 11:39] LABS: Albumin 3.5 g/dL (3.5-5.0); Calcium 8.8 mg/dL (8.4-10.2); Magnesium 2.2 mg/dL (1.6-2.3); Potassium 4.9 mmol/L (3.5-5.1); Total Protein 6.1 g/dL (6.3-8.2)
[2017-12-08 11:43] LABS: Anisocytosis Slight; Basophils % (A) 1 %; Eosinophils # (A) 0.1 k/uL (0-0.7); Eosinophils % (A) 3 %; Hyperchromasia Slight; Lymphocytes # (A) 0.7 k/uL (1.0-4.8); Lymphocytes % (A) 24 %; MCHC 34.8 g/dL (31.0-37.0); MCV 94.7 fL (80.0-100.0); Macrocytosis Slight; Mean Platelet Volume 8.8; Monocytes # (A) 0.2 k/uL (0-1.0); Monocytes % (A) 7 %; Neutrophils # (A) 1.7 k/uL (1.3-7.7); Neutrophils % (A) 63 %; Poikilocytosis Moderate; RBC 2.01 m/uL (4.30-5.90); RDW 19.3 % (11.5-15.5); WBC 2.8 k/uL (3.8-10.6)
[2017-12-08 11:52] LABS: HGB 6.6 gm/dL (13.0-17.5)
--- NOTE | 2017-12-08 11:52 | XR ---
EXAMINATION TYPE: XR abdomen acute w cxr DATE OF EXAM: 12/08/2017 COMPARISON: 03/21/2016 HISTORY: Weakness. History of congestive heart failure and liver failure. Abdominal pain. TECHNIQUE: Single view chest radiograph was obtained Supine and upright abdominal radiographs are obt ained. FINDINGS: There is new mild pulmonary vascular congestion and cardiomegaly. Persistent left hemidiaph ragm elevation is seen from the prior. Osseous structures are intact. No sizable pleural effusion or pneumothorax. Cholecystectomy clips are noted within the right upper quadrant. Density within the left mid abdomen appears smaller than on the exam of 03/13/2016. No evidence of dilated bowel is identified. Moderate a mount retained colonic stool is seen. No pneumoperitoneum is present. IMPRESSION: 1. New mild pulmonary vascular congestion that may be on the basis of cardiogenic or noncardiogenic f luid overload in this patient with known congestive heart failure and liver failure. 2. Nonobstructive bowel gas pattern.
[2017-12-08 11:53] LABS: Creatine Kinase 41 U/L (55-170); Platelet Count 48 k/uL (150-450)
[2017-12-08 12:06] LABS: Creatine Kinase MB 1.5 ng/mL (0.0-2.4); Troponin I <0.012 ng/mL (0.000-0.034)
[2017-12-08 15:34] LABS: Appearance,Urine Clear (Clear); Bilirubin,Urine Negative (Negative); Blood,Urine Negative (Negative); Color,Urine Yellow; Glucose,Urine (UA) Negative (Negative); Ketones,Urine Negative (Negative); Leukocyte Esterase,Urine Negative (Negative); Nitrite,Urine Negative (Negative); Protein,Urine Negative (Negative); Specific Gravity,Urine 1.007 (1.001-1.035); Urobilinogen,Urine <2.0 mg/dL (<2.0)
[2017-12-08] MEDS ORDERED: NALOXONE 0.4 MG/ML 1 ML VIAL IV PRN ×2 (16:28→22:02)
[2017-12-08] MEDS ORDERED: LACTULOSE 20 GM/30 ML CUP PO SCH (17:30)
[2017-12-08 18:10] VITALS: BMI 36.4
[2017-12-08 18:10] LABS: Glucose,Whole Blood 178 mg/dL (75-99)
[2017-12-08] MEDS: VIT A,C & E-LUTEIN-MINERALS 1 EACH TAB PO SCH (18:44)
[2017-12-08] MEDS: SODIUM CHLORIDE 0.9% 1,000 ML IV SCH (18:44)
[2017-12-08] MEDS: PANTOPRAZOLE 40 MG TABLET PO SCH (18:44)
[2017-12-08 20:40] LABS: Glucose,Whole Blood 207 mg/dL (75-99)
[2017-12-08] MEDS ORDERED: TAMSULOSIN 0.4 MG CAP.ER.24H PO SCH (21:00)
[2017-12-08] MEDS ORDERED: ATORVASTATIN 10 MG TAB PO SCH (21:00)
[2017-12-08] MEDS: FUROSEMIDE 20 MG TAB PO SCH (21:28)
[2017-12-08] MEDS: GABAPENTIN 300 MG CAP PO SCH (21:28)
[2017-12-08] MEDS: SPIRONOLACTONE 25 MG TAB PO SCH (21:28)
[2017-12-08] MEDS: FAMOTIDINE 20 MG TAB PO SCH (21:28)
[2017-12-08] MEDS: DULoxetine HCL 60 MG CAPSULE.DR PO SCH (21:28)
[2017-12-08] MEDS: INSULIN ASPART 100 UNIT/ML 1 ML 10 ML VIAL SQ SCH (21:31)
[2017-12-08] MEDS: HYDROmorphone 2 MG TAB PO SCH ×2 (21:41→21:57)
[2017-12-08] MEDS ORDERED: CALCIUM CARBONATE 500 MG CHEWABLE PO PRN (22:02)
[2017-12-08] MEDS ORDERED: MELATONIN 3 MG TABLET PO PRN (22:02)
[2017-12-08] MEDS ORDERED: ONDANSETRON 4 MG/2 ML VIAL IVP PRN (22:02)
[2017-12-08] MEDS: LACTULOSE 20 GM/30 ML CUP PO SCH (23:10)
--- NOTE | 2017-12-08 23:12 | HP ---
HISTORY AND PHYSICAL DATE OF SERVICE: 12/08/2017 PRESENTING COMPLAINT: Weak, tired, low hemoglobin. HISTORY OF PRESENTING COMPLAINT: This is a pleasant 62-year-old patient of Dr. Stephens. The patient has liver failure/cirrhosis and is on a transplant list from [facility]. The patient was found to have a hemoglobin of 6.3, was sent in here for blood transfusion. Patient lives with his elderly mother and sister. The patient's appetite is fair. Does get loose stools about twice a day. Has not been losing weight. The patient's chronic stable medical conditions include some fibromyalgia, peripheral neuropathy, osteoarthritis, hypertension, depression. The patient was ordered 2 units of blood in the ER. The patient does feel a bit tired. REVIEW OF SYSTEMS: CONSTITUTIONAL: Tired. HEENT: None. RESPIRATORY: None. CARDIOVASCULAR: None. GASTROINTESTINAL: As above. GENITOURINARY: None. MUSCULOSKELETAL: Some arthritic pain in joints. DERMATOLOGICAL: Icterus. HEMATOLOGICAL: No black stools. PSYCHIATRY: Depression, controlled. NEUROLOGICAL: Peripheral neuropathy. PAST MEDICAL HISTORY: Fibromyalgia, hyperlipidemia, hypertension, cirrhosis, neck and back pain, diet- controlled diabetes, peripheral neuropathy, hepatitis C, nonalcoholic cirrhosis of the liver, arthritis. 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 SOCIAL HISTORY: The patient smoked a pack a day for 45 years, stopped in 1969. Denies alcohol. Has a mother and sister at home. Does use a walker to get about. FAMILY HISTORY: Liver disease. HOME MEDICATIONS: 1. Requip 0.5 mg p.o. q.h.s. p.r.n. 2. PreserVision AREDs2 soft gel 1 capsule b.i.d. 3. Flomax 0.4 mg p.o. q.h.s. 4. Aldactone 100 mg p.o. b.i.d. 5. Zantac 150 mg p.o. b.i.d. 6. Prilosec 20 mg p.o. b.i.d. 7. Fish oil 1 capsule p.o. daily. 8. Zestril 2.5 p.o. daily. 9. Lactulose 20 g p.o. t.i.d. with meals. 10.Dilaudid 2 mg p.o. t.i.d. 11.Neurontin 300 mg p.o. t.i.d. 12.Lasix 20 mg p.o. t.i.d. 13.Baraclude 0.5 mg p.o. daily. 14.Cymbalta 60 mg b.i.d. 15.Lipitor 10 mg p.o. q.h.s. ALLERGIES: To IODINATED CONTRAST, SHELLFISH. EXAMINATION: Temperature 98, pulse 70, respirations 20, blood pressure 102/54, pulse ox 99% on room air. GENERAL APPEARANCE: Well-built, BMI 36.4, lying in bed. EYES: Pupils equal. Conjunctival icterus. HEENT: External nose and ears normal. Oral cavity normal. NECK: JVD unable to assess. Mass not palpable. RESPIRATORY: Effort normal. LUNGS: Slightly decreased breath sounds. CARDIOVASCULAR: First and second sounds normal. Mild edema. ABDOMEN: Distended, soft. Liver and spleen not palpable. LYMPHATIC: No lymph node palpable in neck or axillae. PSYCHIATRY: The patient is slightly lethargic, but able to answer questions appropriately. NEUROLOGICAL: Pupils equal. Cranial nerves grossly intact. Power grossly intact. Some decreased sensation distally. INVESTIGATIONS: White count 2.8, hemoglobin 6.6, platelets 48. Potassium 4.9, BUN 40, creatinine 1.60, ammonia 72. The patient's BUN and creatinine were 36/1.50 back in October, hemoglobin was 7.2 then. ASSESSMENT: 1. Acute on chronic normocytic anemia, symptomatic. Patient requiring blood transfusion. 2. Pancytopenia, probably from underlying cirrhosis. 3. Chronic kidney disease stage 3, may be an element of hepatorenal syndrome. 4. Hyperammonemia. 5. Mild hepatic encephalopathy. 6. Diet-controlled diabetes. 7. Cirrhosis. 8. Primary osteoarthritis. 9. Peripheral neuropathy, probably from cirrhosis. 10.Obesity, BMI 36.4. PLAN: Patient is being transfused 2 units of blood. Home medications will be resumed. Will increase the patient's dose of lactulose to 4 times a day. The patient is already on a transplant list. Overall prognosis is guarded. Care was discussed with the patient. CODE STATUS: FULL CODE. MMODL / IJN: [id number] /
[2017-12-09] MEDS: SODIUM CHLORIDE 0.9% 1,000 ML IV SCH ×2 (03:55→12:23)
[2017-12-09 07:23] LABS: Glucose,Whole Blood 155 mg/dL (75-99)
[2017-12-09 07:39] LABS: Anisocytosis Slight; Basophils % (A) 1 %; Eosinophils % (A) 2 %; HCT 20.2 % (39.0-53.0); Lymphocytes # (A) 0.7 k/uL (1.0-4.8); Lymphocytes % (A) 33 %; MCH 32.6 pg (25.0-35.0); MCHC 33.7 g/dL (31.0-37.0); MCV 96.7 fL (80.0-100.0); Macrocytosis Slight; Mean Platelet Volume 9.6; Monocytes # (A) 0.2 k/uL (0-1.0); Monocytes % (A) 8 %; Neutrophils # (A) 1.1 k/uL (1.3-7.7); Neutrophils % (A) 53 %; Poikilocytosis Moderate; RBC 2.09 m/uL (4.30-5.90); RDW 18.9 % (11.5-15.5)
[2017-12-09 07:42] LABS: HGB 6.8 gm/dL (13.0-17.5); Platelet Count 40 k/uL (150-450)
[2017-12-09] MEDS ORDERED: LISINOPRIL 2.5 MG TAB PO SCH (09:00)
[2017-12-09] MEDS ORDERED: ENTECAVIR 0.5 MG PO SCH (09:00)
[2017-12-09] MEDS ORDERED: NON-FORMULARY DRUG (Omega-3 Fatty Acids/Fish Oil [Fish Oil 1,000 Mg Softgel] 1 CAP) PO SCH (09:00)
[2017-12-09] MEDS: VIT A,C & E-LUTEIN-MINERALS 1 EACH TAB PO SCH ×2 (09:24→09:25)
[2017-12-09] MEDS: DULoxetine HCL 60 MG CAPSULE.DR PO SCH (09:24)
[2017-12-09] MEDS: HYDROmorphone 2 MG TAB PO SCH ×2 (09:24→14:27)
[2017-12-09] MEDS: FUROSEMIDE 20 MG TAB PO SCH ×2 (09:24→14:29)
[2017-12-09] MEDS: LACTULOSE 20 GM/30 ML CUP PO SCH ×2 (09:24→14:23)
[2017-12-09] MEDS: FAMOTIDINE 20 MG TAB PO SCH (09:24)
[2017-12-09] MEDS: PANTOPRAZOLE 40 MG TABLET PO SCH (09:24)
[2017-12-09] MEDS: SPIRONOLACTONE 25 MG TAB PO SCH (09:24)
[2017-12-09] MEDS: INSULIN ASPART 100 UNIT/ML 1 ML 10 ML VIAL SQ SCH ×2 (09:25→12:21)
[2017-12-09] MEDS: GABAPENTIN 300 MG CAP PO SCH ×2 (09:26→14:29)
--- NOTE | 2017-12-09 09:49 | P.CONS ---
History of Present Illness - Reason for Consult Consult date: 12/09/17 Hepatic encephalopathy Requesting physician: Lisandro Lorenzo - History of Present Illness 62-year-old male patient of Dr. Renata Elliott history of chronic hepatitis B infection maintained on Baraclude, cirrhosis of the liver presently on liver transplantation list at [facility] admitted with an elevated ammonia level 72 as well as anemia hemoglobin 6.6. Patient's PCP notified him of his low hemoglobin, and advised him to go to hospital for further evaluation. He was provided multiple doses of lactulose with improvement in serum ammonia presently 29. No significant mental status changes with the elevated ammonia level. In regards to his anemia his average hemoglobin when reviewing medical records ranges between 7-9. Denies shortness of breath chest pain lightheadedness weakness. Denies overt bleeding such as hematemesis hematochezia melena. He received 2 units of blood with not much improvement in his hemoglobin increased from 6.6-6.8. MCV 96. Platelet 40,000. Denies abdominal pain. He has an appointment this evening at [facility] that he would like to not miss. Denies fever or chills. Hemodynamically stable no episodes of hypotension or tachycardia. Review of Systems Constitutional: Denies fever, chills, sweats, weight gain, or loss. HEENT: Negative for migraines, blurred vision or loss, earaches, drainage, tinnitus, oral mucosal lesions, dysphagia, or odynophagia. Cardiac: Negative for chest pain, arrhythmias, or palpitation. Respiratory: Negative for shortness of breath, hemoptysis, cough, or sputum production. Gastrointestinal: See HPI for pertinent findings. Genitourinary: Negative for hematuria, urgency, frequency, polyuria, dysuria, or penile discharge. Musculoskeletal: Negative for muscle aches, swelling, arthritis, and arthralgias. Neurologic: Negative for stroke or TIA. Endocrine: Negative for thyroid problems. Skin: Negative for rash or itching. Psychiatric: Negative history for depression and anxiety Past Medical History Past Medical History: CVA/TIA, Diabetes Mellitus, Fibromyalgia, Hyperlipidemia, Hypertension, Liver Disease Additional Past Medical History / Comment(s): neck/back pain, diet controlled dm neuropathy, hep B, [place], "non alcoholic"cirrhosis of liver. 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, ear surgery as a child, cataracts Past Anesthesia/Blood Transfusion Reactions: No Reported Reaction Additional Past Anesthesia/Blood Transfusion Reaction / Comm: past blood trnsfusions- no reacation Past Psychological History: No Psychological Hx Reported Smoking Status: Former smoker Past Alcohol Use History: None Reported Additional Past Alcohol Use History / Comment(s): started smoking 1971 and quit 2016 smoked 1 ppd Past Drug Use History: None Reported - Past Family History Father Family Medical History: Liver Disease Mother Family Medical History: Congestive Heart Failure (CHF) Additional Family Medical History / Comment(s): Patient lives with mother and sister and familymembers provide care to both. Medications and Allergies Home Medications Medication Instructions Recorded Confirmed Type Entecavir [Baraclude] 0.5 mg PO DAILY 03/10/14 12/08/17 History DULoxetine HCL [Cymbalta] 60 mg PO BID 04/14/15 12/08/17 History Ranitidine HCl [Zantac] 150 mg PO BID 04/14/15 12/08/17 History Tamsulosin HCl [Flomax] 0.4 mg PO HS 04/14/15 12/08/17 History Lactulose 20 gm PO TID-W/MEALS 07/06/16 12/08/17 History Atorvastatin [Lipitor] 10 mg PO HS 04/16/17 12/08/17 History Gabapentin [Neurontin] 300 mg PO TID #90 cap 04/18/17 12/08/17 Rx Spironolactone [Aldactone] 100 mg PO BID #60 tab 04/18/17 12/08/17 Rx Furosemide [Lasix] 20 mg PO TID 11/18/17 12/08/17 History HYDROmorphone [Dilaudid] 2 mg PO TID 11/18/17 12/08/17 History Lisinopril [Zestril] 2.5 mg PO DAILY 11/18/17 12/08/17 History [place]on-3 Fatty Acids/Fish Oil [Fish 1 cap PO DAILY 11/18/17 12/08/17 History Oil 1,000 mg Softgel] Omeprazole [PriLOSEC] 20 mg PO BID 11/18/17 12/08/17 History Vit C/E/Zn/Coppr/Lutein/Zeaxan 1 cap PO BID 11/18/17 12/08/17 History [Preservision Areds 2 Softgel] rOPINIRole HCL [Requip] 0.5 mg PO HS PRN 12/08/17 12/08/17 History Allergies Allergy/AdvReac Type Severity Reaction Status Date / Time Iodinated Contrast- Oral and Allergy Rash/Hives Verified 12/08/17 11:10 IV Dye shellfish derived [Shellfish] AdvReac complications Verified 12/08/17 11:10 with liver Physical Exam Vitals: Vital Signs Temp Pulse Pulse Resp BP BP Pulse Ox 12/09/17 05:50 97.4 F L 73 16 97/48 99 12/08/17 23:00 97.4 F L 67 18 130/60 100 12/08/17 18:17 96.9 F L 62 19 103/54 100 12/08/17 17:59 97.8 F 64 18 130/60 100 12/08/17 16:35 70 18 118/59 98 12/08/17 15:59 70 18 136/65 98 12/08/17 15:50 97.2 F L 73 18 136/65 12/08/17 15:29 97.2 F L 73 18 136/65 12/08/17 15:19 98 F 71 16 113/56 97 12/08/17 15:04 97.1 F L 70 16 113/55 98 12/08/17 14:04 97.4 F L 69 18 111/52 100 12/08/17 13:34 98.3 F 69 18 116/56 99 12/08/17 13:24 97.3 F L 69 18 105/51 100 12/08/17 12:28 98 18 105/49 98 12/08/17 11:37 74 18 110/52 100 12/08/17 10:27 98.8 F 70 20 112/54 99 Intake and Output 12/08/17 12/09/17 12/09/17 22:59 06:59 14:59 Intake Total 620 100 Output Total 750 Balance 620 -650 Intake: Oral 100 Blood Product 620 Rc As-1 Unit 310 [id number] Rc As-1 Unit 310 [id number] Output: Urine 750 Other: # Voids 1 # Bowel Movements 1 Weight 115.2 kg General appearance: The patient is alert, oriented, in no acute distress. HET: Head is normocephalic and atraumatic. Pupils are equal and reactive. Oropharynx is clear without lesions. Neck: Supple without lymphadenopathy. Trachea midline. Heart: S1 S2. Regular rate and rhythm. Lungs: No crackles or wheezes are heard. Abdomen: Soft, nontender, nondistended with bowel sounds. No peritoneal signs. No palpable organomegaly or masses. Extremities: Normal skin color and turgor. No cyanosis, rash, ulceration, clubbing, or edema. Radial and pedal pulses are 2/4 bilaterally. Neurological: No focal deficits. Strength and sensation are grossly intact. Results CBC & Chem 7: 12/09/17 07:07 12/08/17 10:54 Labs: Abnormal Lab Results - Last 24 Hours (Table) 12/08/17 12/08/17 12/08/17 Range/Units 10:54 10:54 10:54 WBC 2.8 L (3.8-10.6) k/uL RBC 2.01 L (4.30-5.90) m/uL Hgb 6.6 L* (13.0-17.5) gm/dL Hct 19.0 L* (39.0-53.0) % RDW 19.3 H (11.5-15.5) % Plt Count 48 L* (150-450) k/uL Lymphocytes # 0.7 L (1.0-4.8) k/uL Carbon Dioxide (22-30) mmol/L BUN (9-20) mg/dL Creatinine (0.66-1.25) mg/dL Glucose (74-99) mg/dL POC Glucose (mg/dL) (75-99) mg/dL Total Bilirubin (0.2-1.3) mg/dL Alkaline Phosphatase (38-126) U/L Ammonia (<30) umol/L Total Creatine Kinase 41 L (55-170) U/L Total Protein (6.3-8.2) g/dL Crossmatch See Detail 12/08/17 12/08/17 12/08/17 Range/Units 10:54 12:03 18:08 WBC (3.8-10.6) k/uL RBC (4.30-5.90) m/uL Hgb (13.0-17.5) gm/dL Hct (39.0-53.0) % RDW (11.5-15.5) % Plt Count (150-450) k/uL Lymphocytes # (1.0-4.8) k/uL Carbon Dioxide 21 L (22-30) mmol/L BUN 40 H (9-20) mg/dL Creatinine 1.60 H (0.66-1.25) mg/dL Glucose 193 H (74-99) mg/dL POC Glucose (mg/dL) 178 H (75-99) mg/dL Total Bilirubin 8.0 H (0.2-1.3) mg/dL Alkaline Phosphatase 199 H (38-126) U/L Ammonia 72 H (<30) umol/L Total Creatine Kinase (55-170) U/L Total Protein 6.1 L (6.3-8.2) g/dL Crossmatch 12/08/17 Range/Units 20:35 WBC (3.8-10.6) k/uL RBC (4.30-5.90) m/uL Hgb (13.0-17.5) gm/dL Hct (39.0-53.0) % RDW (11.5-15.5) % Plt Count (150-450) k/uL Lymphocytes # (1.0-4.8) k/uL Carbon Dioxide (22-30) mmol/L BUN (9-20) mg/dL Creatinine (0.66-1.25) mg/dL Glucose (74-99) mg/dL POC Glucose (mg/dL) 207 H (75-99) mg/dL Total Bilirubin (0.2-1.3) mg/dL Alkaline Phosphatase (38-126) U/L Ammonia (<30) umol/L Total Creatine Kinase (55-170) U/L Total Protein (6.3-8.2) g/dL Crossmatch Assessment and Plan (1) Hepatic encephalopathy Narrative/Plan: Mild hepatic encephalopathy with minimal mental status changes serum ammonia levels improved with lactulose Current Visit: Yes Status: Acute Code(s): K72.90 - HEPATIC FAILURE, UNSPECIFIED WITHOUT COMA SNOMED Code(s): 04400556 (2) Anemia Narrative/Plan: No overt GI bleeding status post transfusion component of underlying anemia of chronic disease Current Visit: Yes Status: Acute Code(s): D64.9 - ANEMIA, UNSPECIFIED SNOMED Code(s): 502992540 (3) Chronic hepatitis B Current Visit: Yes Status: Acute Code(s): B18.1 - CHRONIC VIRAL HEPATITIS B WITHOUT DELTA-AGENT SNOMED Code(s): 02484051 (4) Cirrhosis Current Visit: Yes Status: Acute Code(s): K74.60 - UNSPECIFIED CIRRHOSIS OF LIVER SNOMED Code(s): 84106115 (5) Pancytopenia Current Visit: Yes Status: Acute Code(s): D61.818 - OTHER PANCYTOPENIA SNOMED Code(s): 800261694 Plan: 1. Case was discussed with attending Dr. Lorenzo considering patient is not symptomatic with his anemia agreeable for discharge. Follow up with Chato Srivastava appointment scheduled this evening. Continue with lactulose 20 g 3-4 times daily titrate 3-4 bowel movements daily. Advised to observe for signs of overt bleeding such as black or red stool/emesis. Return to hospital if patient develops shortness of breath chest or abdominal pain. Thank you for this kind referral and the opportunity to participate in the care of your patient. This consultation was discussed with Dr. Arteaga. The impression and plan of care have been directed as dictated.
[2017-12-09 12:08] LABS: Glucose,Whole Blood 197 mg/dL (75-99)
[2017-12-09 13:19] VITALS: RESP 16
[2017-12-09 15:15] VITALS: BP 126/70; PULSE 66; TEMP 98.3
[2017-12-10 01:12] LABS: Hemoglobin A1C 4.9 % (4.0-6.0)
--- NOTE | 2017-12-14 16:07 | CDI ---
Last Revision, June 2017 Documentation Clarification Form Date: 12/14/17 From: Nayeli Boston Phone: If you have question, contact Mary Phillipsfabienneruslan, Non Food Receiving Clerk at Admit Date: 12/08/2017 4:33:00 PM Patient Name: Noble Cornell Visit Number: [id number] Discharge Date: 12/09/17 ATTENTION: The Clinical Documentation Specialists (CDI) and [facility] Coding Staff appreciate your assistance in clarifying documentation. Please respond to the clarification below the line at the bottom and electronically sign. The CDI & [facility] Coding staff will review the response and follow-up if needed. Please note: Queries are made part of the Legal Health Record. If you have any questions, please contact the author of this message via ITS. Dr. Lisandro Lorenzo A diagnosis of anemia of chronic disease documented on the consultation lacks specificity to accurately reflect your patients severity of condition and clarification is needed. History of: CKD 3, Chronic Hepatitis B, Cirrhosis Hemoglobin: on admission is 6.6 Hematocrit: on admission is 19.0 Treatment: 3 units of PRBCs transfused, iron, monitoring labs In order to capture the severity of condition, please clarify the chronic disease that the anemia is linked to. see documentation in dc summary MTDD
--- NOTE | 2017-12-15 06:41 | DS ---
DISCHARGE SUMMARY DATE OF ADMISSION: 12/08/2017. DATE OF DISCHARGE: 12/09/17. FINAL DIAGNOSES: 1. Acute on chronic normocytic anemia, symptomatic, requiring blood transfusion, possibly secondary to chronic kidney disease. 2. Pancytopenia, probably from underlying cirrhosis. 3. Chronic kidney disease stage 3 probably nephrosclerosis, could be an element of hepatorenal syndrome. 4. Hyperammonemia. 5. Mild hepatic encephalopathy. 6. Diet-controlled diabetes. 7. Cirrhosis. 8. Primary osteoarthritis. 9. Peripheral neuropathy probably from cirrhosis. 10.Obesity; BMI 36.4. 11.Cirrhosis secondary to chronic hepatitis B. HOSPITAL COURSE: This patient presented with low hemoglobin of 6.6. The patient is given 3 units of blood, 3 units of blood. The patient hemoglobin was 6.8 after the 2nd unit of blood. The patient will have repeat CBC does not done as an outpatient. CONSULTATION: Dr. Arteaga from Gastroenterology. The patient is okay to be discharged. EXAM: Lungs are clear. Cardiovascular 1st and second sounds normal. Abdomen slight distention. DISCHARGE MEDICATIONS: 1. 0.5 mg p.o. daily. 2. Cymbalta 60 mg p.o. b.i.d. 3. Zantac 150 mg p.o. b.i.d. 4. Flomax 0.4 mg p.o. q.h.s. 5. Lactulose 20 g p.o. t.i.d. with meals. 6. Lipitor 10 mg p.o. at bedtime. 7. Neurontin 300 mg p.o. t.i.d. 8. Aldactone 100 mg p.o. b.i.d. 9. Lasix 20 mg p.o. t.i.d. 10.Dilaudid 2 mg p.o. t.i.d. 11.Zestril 2.5 mg p.o. daily. 12.Fish oil 1000 mg 1 capsule p.o. daily. 13.Prilosec 20 mg p.o. b.i.d. 14.PreserVision 2 soft gel 1 capsule p.o. b.i.d. 15.Requip 0.5 mg q.h.s. p.r.n. FOLLOWUP: Follow up with Dr. Kalpesh Elliott as needed. Follow up with Dr. Merchant on December 14, 2017. CBC in 3 days. The patient has an appointment at [facility] on the day of discharge, patient is to follow up with the same. Copy to Dr. Merchant. MMDOUGLAS / EDVINN: [id number] /
== END 2017-12-09 15:58 | disposition home or self-care (01) | DRG 683 ==
LOC: EC 10:09 → 4MS4W 16:33
PROVIDERS: ADMIT Hospitalist; ATTEND Hospitalist
PROC: 30233N1 Transfusion of Nonautologous Red Blood Cells into Peripheral Vein, Percutaneous Approach (ICD-10-PCS; principal; 2017-12-08)
DX: I12.9 Hypertensive chronic kidney disease with stage 1 through stage 4 chronic kidney disease, or unspecified chronic kidney disease (principal); D61.818 Other pancytopenia; B18.1 Chronic viral hepatitis B without delta-agent; D63.1 Anemia in chronic kidney disease; K72.90 Hepatic failure, unspecified without coma; N18.3 Chronic kidney disease, stage 3 (moderate); E11.22 Type 2 diabetes mellitus with diabetic chronic kidney disease; M79.7 Fibromyalgia; F32.9 Major depressive disorder, single episode, unspecified; K74.69 Other cirrhosis of liver; B19.20 Unspecified viral hepatitis C without hepatic coma; E66.9 Obesity, unspecified; G62.9 Polyneuropathy, unspecified; G25.81 Restless legs syndrome; M19.91 Primary osteoarthritis, unspecified site; E78.5 Hyperlipidemia, unspecified; Z87.891 Personal history of nicotine dependence; Z90.49 Acquired absence of other specified parts of digestive tract; Z98.890 Other specified postprocedural states; Z79.899 Other long term (current) drug therapy; Z79.891 Long term (current) use of opiate analgesic; Z68.36 Body mass index [BMI] 36.0-36.9, adult; Z82.49 Family history of ischemic heart disease and other diseases of the circulatory system; Z86.73 Personal history of transient ischemic attack (TIA), and cerebral infarction without residual deficits; Z87.440 Personal history of urinary (tract) infections; Z76.82 Awaiting organ transplant status; Z91.041 Radiographic dye allergy status; Z91.013 Allergy to seafood
CPT/HCPCS: 36415; 74022; 80053; 81003; 82140; 82550; 82553; 83036; 83735; 84484; 85025; 86850; 86900; 86901; 86920; 93005; 99284

== ENCOUNTER → 2017-12-30 | Outpatient (CLI) | payer OTHER ==
[2017-12-30 13:25] LABS: Calcium 8.4 mg/dL (8.4-10.2); Potassium 4.1 mmol/L (3.5-5.1)
== END | disposition home or self-care (01) ==
LOC: LABWHC1 12:27
PROVIDERS: ATTEND Internal Medicine Gastroenterology
DX: K74.60 Unspecified cirrhosis of liver (principal); Z76.82 Awaiting organ transplant status
CPT/HCPCS: 36415; 80048

== ENCOUNTER → 2018-01-23 | Outpatient (CLI) | payer OTHER ==
[2018-01-23 11:45] LABS: Albumin 3.2 g/dL (3.5-5.0); Calcium 8.5 mg/dL (8.4-10.2); Total Bilirubin 6.7 mg/dL (0.2-1.3)
[2018-01-23 11:52] LABS: INR 1.3 (<1.2); Partial Thromboplastin Time 25.4 sec (22.0-30.0); Prothrombin Time 12.6 sec (9.0-12.0)
== END | disposition home or self-care (01) ==
LOC: LABWHC1 10:47
PROVIDERS: ATTEND Family Medicine
DX: K74.60 Unspecified cirrhosis of liver (principal); R18.8 Other ascites; R11.0 Nausea; Z76.82 Awaiting organ transplant status
CPT/HCPCS: 36415; 80053; 82150; 83690; 85610; 85730

== ENCOUNTER → 2018-01-27 | Outpatient (CLI) | payer OTHER ==
[2018-01-27 12:04] LABS: INR 1.4 (<1.2); Prothrombin Time 12.7 sec (9.0-12.0)
[2018-01-27 12:11] LABS: Albumin 3.5 g/dL (3.5-5.0); Anisocytosis Moderate; Calcium 8.4 mg/dL (8.4-10.2); Hypochromasia Slight; MCH 31.9 pg (25.0-35.0); MCHC 33.2 g/dL (31.0-37.0); Macrocytosis Slight; Mean Platelet Volume 8.1; Poikilocytosis Moderate; Potassium 4.2 mmol/L (3.5-5.1); RDW 20.7 % (11.5-15.5); Total Bilirubin 6.9 mg/dL (0.2-1.3); Total Protein 6.4 g/dL (6.3-8.2)
[2018-01-27 13:12] LABS: HCT 19.2 % (39.0-53.0); HGB 6.4 gm/dL (13.0-17.5); Platelet Count 62 k/uL (150-450)
== END | disposition home or self-care (01) ==
LOC: LABWHC1 11:25
PROVIDERS: ATTEND Internal Medicine Gastroenterology
DX: K74.60 Unspecified cirrhosis of liver (principal)
CPT/HCPCS: 36415; 80053; 85027; 85610

== ENCOUNTER → 2018-02-20 | Outpatient (CLI) | payer OTHER | END | disposition home or self-care (01) | LOC: LABWHC1 11:56 | PROVIDERS: ATTEND Internal Medicine Hepatology | DX: Z53.9 Procedure and treatment not carried out, unspecified reason (principal) ==

== ENCOUNTER → 2018-02-21 | Outpatient (CLI) | payer OTHER ==
[2018-02-21 16:34] LABS: Iron Saturation 19.49 (15.00-50.00)
[2018-02-21 16:45] LABS: Folate, Serum 7.4 ng/mL
== END | disposition home or self-care (01) ==
LOC: LABWHC1 09:22
PROVIDERS: ATTEND Internal Medicine Hepatology
DX: D89.9 Disorder involving the immune mechanism, unspecified (principal); D64.9 Anemia, unspecified; Z94.4 Liver transplant status
CPT/HCPCS: 36415; 82607; 82728; 82746; 83540; 83550

== ENCOUNTER → 2018-04-17 | Outpatient (CLI) | payer OTHER ==
[2018-04-17 16:19] LABS: Iron Saturation 62.28 (15.00-50.00)
== END | disposition home or self-care (01) ==
LOC: LABWHC1 08:32
PROVIDERS: ATTEND Internal Medicine Gastroenterology
DX: C22.0 Liver cell carcinoma (principal); D64.9 Anemia, unspecified; R94.5 Abnormal results of liver function studies; D89.9 Disorder involving the immune mechanism, unspecified; B18.0 Chronic viral hepatitis B with delta-agent; Z94.4 Liver transplant status
CPT/HCPCS: 36415; 82728; 83540; 83550

== ENCOUNTER 2018-05-19 12:48 | Emergency (ER) | payer OTHER ==
[2018-05-19 13:16] VITALS: RESP 16
--- NOTE | 2018-05-19 14:03 | ED ---
General Adult HPI - General Chief complaint: Extremity Problem,Nontraumatic Stated complaint: left foot pain & swelling Time Seen by Provider: 05/19/18 13:16 Source: patient, RN notes reviewed Mode of arrival: wheelchair Limitations: no limitations - History of Present Illness Initial comments: 62-year-old male presents emergency determine for chief complaint of left foot pain and swelling x 2 days. Patient states it is now painful to walk on the foot. Patient states he has a history of gout this may be a reoccurrence. He is not on any medications for gout as he has not had a flare in the ears. Patient denies fevers or chills at home. Patient denies any injuries besides for hitting his foot against the wall about one month ago. Patient states the pain from that has since resolved. Patient did have a liver transplant 3 months ago. Patient states he is currently not having any difficulties with this. Patient has no other complaints at this time including shortness of breath , chest pain, abdominal pain, nausea or vomiting, headache, or visual changes. - Related Data Home Medications Medication Instructions Recorded Confirmed Entecavir [Baraclude] 0.5 mg PO DAILY 03/10/14 12/08/17 DULoxetine HCL [Cymbalta] 60 mg PO BID 04/14/15 12/08/17 Ranitidine HCl [Zantac] 150 mg PO BID 04/14/15 12/08/17 Tamsulosin HCl [Flomax] 0.4 mg PO HS 04/14/15 12/08/17 Lactulose 20 gm PO TID-W/MEALS 07/06/16 12/08/17 Atorvastatin [Lipitor] 10 mg PO HS 04/16/17 12/08/17 Furosemide [Lasix] 20 mg PO TID 11/18/17 12/08/17 HYDROmorphone [Dilaudid] 2 mg PO TID 11/18/17 12/08/17 Lisinopril [Zestril] 2.5 mg PO DAILY 11/18/17 12/08/17 [place]-3 Fatty Acids/Fish Oil [Fish 1 cap PO DAILY 11/18/17 12/08/17 Oil 1,000 mg Softgel] Omeprazole [PriLOSEC] 20 mg PO BID 11/18/17 12/08/17 Vit C/E/Zn/Coppr/Lutein/Zeaxan 1 cap PO BID 11/18/17 12/08/17 [Preservision Areds 2 Softgel] rOPINIRole HCL [Requip] 0.5 mg PO HS PRN 12/08/17 12/08/17 Previous Rx's Medication Instructions Recorded Gabapentin [Neurontin] 300 mg PO TID #90 cap 04/18/17 Spironolactone [Aldactone] 100 mg PO BID #60 tab 04/18/17 predniSONE 40 mg PO DAILY 5 Days tab 05/19/18 Allergies Allergy/AdvReac Type Severity Reaction Status Date / Time Iodinated Contrast- Oral and Allergy Rash/Hives Verified 05/19/18 13:16 IV Dye shellfish derived [Shellfish] AdvReac complications Verified 05/19/18 13:16 with liver Review of Systems ROS Statement: Those systems with pertinent positive or pertinent negative responses have been documented in the HPI. ROS Other: All systems not noted in ROS Statement are negative. Past Medical History Past Medical History: CVA/TIA, Diabetes Mellitus, Fibromyalgia, Hyperlipidemia, Hypertension, Liver Disease Additional Past Medical History / Comment(s): neck/back pain, diet controlled dm neuropathy, hep B, [place], "non alcoholic"cirrhosis of liver. 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, ear surgery as a child, cataracts Past Anesthesia/Blood Transfusion Reactions: No Reported Reaction Additional Past Anesthesia/Blood Transfusion Reaction / Comment(s): past blood trnsfusions- no reacation Past Psychological History: No Psychological Hx Reported Smoking Status: Former smoker Past Alcohol Use History: None Reported Past Drug Use History: None Reported - Past Family History Father Family Medical History: Liver Disease Mother Family Medical History: Congestive Heart Failure (CHF) Additional Family Medical History / Comment(s): Patient lives with mother and sister and familymembers provide care to both. General Exam Limitations: no limitations General appearance: alert, in no apparent distress Head exam: Present: atraumatic, normocephalic, normal inspection Eye exam: Present: normal appearance, PERRL, EOMI. Absent: scleral icterus, conjunctival injection, periorbital swelling ENT exam: Present: normal exam, mucous membranes moist Neck exam: Present: normal inspection, full ROM. Absent: tenderness, meningismus, lymphadenopathy Respiratory exam: Present: normal lung sounds bilaterally. Absent: respiratory distress, wheezes, rales, rhonchi, stridor Cardiovascular Exam: Present: regular rate, normal rhythm, normal heart sounds. Absent: systolic murmur, diastolic murmur, rubs, gallop, clicks Extremities exam: Present: full ROM (Full range of motion of the left lower extremity), tenderness (Tenderness to the dorsal aspect of the left foot), normal capillary refill (Capillary refill less than 2 seconds. DP and PT pulses strong and Doppler.), pedal edema (Pedal edema noted, nonpitting), other (Sensation intact and left lower extremity, no erythema or increased warmth noted). Absent: calf tenderness (No calf tenderness, negative Homans sign) Neurological exam: Present: alert, oriented X3, CN II-XII intact Psychiatric exam: Present: normal affect, normal mood Course Vital Signs 05/19/18 05/19/18 13:13 17:43 Temperature 98 F 97.7 F Pulse Rate 63 69 Respiratory 16 16 Rate Blood Pressure 117/49 123/60 O2 Sat by Pulse 97 97 Oximetry Medical Decision Making - Medical Decision Making 62-year-old male with a chief complaint of left foot pain and swelling 2 days. Patient has a history of a liver transplant 3 months ago. Patient states history of gout but is not on any current medications. On exam patient has edema noted of the left foot, nonpitting. No erythema or increased warmth noted. No evidence of infection at this time. Ultrasound was negative. X-ray of the left foot did show a possible hairline fracture of the base of the fifth metatarsal. However, patient has no pain or tenderness in this area and this is unlikely to be the cause of his pain. Patient is currently immunosuppressed for liver transplant and has a white count of 3.3. This is consistent with past levels. Hemoglobin 7.7 and platelet count 65 which is also consistent with previous levels and liver transplant. Creatinine 1.16 which is also consistent with patient's past levels. Uric acid does show 15.4. Patient likely has gout of the foot considering his past history of gout as well as high uric acid level. I did discuss the patient that there is a low possibility this could be infection however at this time I do not believe it to be so as patient is well-appearing and vitals are stable and patient is afebrile. Discussed returning if he has any worsening symptoms, erythema, or increased warmth. Patient was started on prednisone. He is currently taking 5 mg and will take 40 mg instead. His sister states she is going to contact the transplant team to make sure they want him to do this as she states they have been tapering his prednisone. He is insulin-dependent but is on a sliding scale. Patient was educated he may need to increase his insulin depending and his glucose reads. He will follow up with primary care in 1-2 days. He will return if he has any worsening symptoms. - Lab Data Result diagrams: 05/19/18 15:44 05/19/18 15:44 Lab Results 05/19/18 05/19/18 05/19/18 Range/Units 15:44 15:44 15:44 WBC 3.3 L (3.8-10.6) k/uL RBC 2.73 L (4.30-5.90) m/uL Hgb 7.7 L (13.0-17.5) gm/dL Hct 22.9 L (39.0-53.0) % MCV 84.0 (80.0-100.0) fL MCH 28.1 (25.0-35.0) pg MCHC 33.5 (31.0-37.0) g/dL RDW 22.6 H (11.5-15.5) % Plt Count 65 L (150-450) k/uL Neutrophils % 71 % Lymphocytes % 18 % Monocytes % 7 % Eosinophils % 1 % Basophils % 1 % Neutrophils # 2.3 (1.3-7.7) k/uL Lymphocytes # 0.6 L (1.0-4.8) k/uL Monocytes # 0.2 (0-1.0) k/uL Eosinophils # 0.0 (0-0.7) k/uL Basophils # 0.0 (0-0.2) k/uL Hypochromasia Slight Hyperchromasia Slight Poikilocytosis Marked Anisocytosis Moderate Microcytosis Slight Sodium 141 (137-145) mmol/L Potassium 4.7 (3.5-5.1) mmol/L Chloride 107 (98-107) mmol/L Carbon Dioxide 24 (22-30) mmol/L Anion Gap 10 mmol/L BUN 30 H (9-20) mg/dL Creatinine 1.69 H (0.66-1.25) mg/dL Est GFR (CKD-EPI)AfAm 49 (>60 ml/min/1.73 sqM) Est GFR (CKD-EPI)NonAf 43 (>60 ml/min/1.73 sqM) Glucose 90 (74-99) mg/dL Uric Acid 15.4 H* (3.5-8.5) mg/dL Calcium 8.7 (8.4-10.2) mg/dL Total Bilirubin 3.9 H (0.2-1.3) mg/dL AST 17 (17-59) U/L ALT 18 L (21-72) U/L Alkaline Phosphatase 40 (38-126) U/L Total Protein 6.3 (6.3-8.2) g/dL Albumin 3.7 (3.5-5.0) g/dL Urine Color Yellow Urine Appearance Clear (Clear) Urine pH 5.0 (5.0-8.0) Ur Specific [place] 1.010 (1.001-1.035) Urine Protein Negative (Negative) Urine Glucose (UA) Negative (Negative) Urine Ketones Negative (Negative) Urine Blood Negative (Negative) Urine Nitrite Negative (Negative) Urine Bilirubin Negative (Negative) Urine Urobilinogen <2.0 (<2.0) mg/dL Ur Leukocyte Esterase Negative (Negative) Disposition Clinical Impression: Gout, Foot pain Disposition: HOME SELF-CARE Condition: Good Instructions: Gout (ED) Additional Instructions: 52-year-old male presents to the emergency department for a chief complaint of left foot pain 2 days. Prescriptions: predniSONE 40 mg PO DAILY 5 Days tab Is patient prescribed a controlled substance at d/c from ED?: No Referrals: Ivan Merchant DO [Primary Care Provider] - 1-2 days Time of Disposition: 17:22
--- NOTE | 2018-05-19 14:32 | XR ---
EXAMINATION TYPE: XR foot complete LT DATE OF EXAM: 05/19/2018 CLINICAL HISTORY: pain TECHNIQUE: Frontal, lateral and oblique images of the left foot are obtained. COMPARISON: None. FINDINGS: Hairline fracture at the base of the fifth metatarsal is difficult to exclude. Correlate cl inically with point tenderness. The joint spaces appear within normal limits. The overlying soft ti ssue appears unremarkable. IMPRESSION: Hairline fracture at the base of the fifth metatarsal is difficult to exclude. Correlate clinically w ith point tenderness.
--- NOTE | 2018-05-19 15:53 | US ---
EXAMINATION TYPE: US venous doppler duplex LE LT DATE OF EXAM: 05/19/2018 3:29 PM COMPARISON: NONE CLINICAL HISTORY: Pain. Pain in left foot SIDE PERFORMED: Left TECHNIQUE: The lower extremity deep venous system is examined utilizing real time linear array sonog misty with graded compression, doppler sonography and color-flow sonography. VESSELS IMAGED: External Iliac Vein (EIV) Common Femoral Vein Deep Femoral Vein Greater Saphenous Vein * Femoral Vein Popliteal Vein Small Saphenous Vein * Proximal Calf Veins (* superficial vessels) Left Leg: Negative for DVT IMPRESSION: No evidence for DVT.
[2018-05-19 16:10] LABS: Anisocytosis Moderate; Basophils % (A) 1 %; Eosinophils % (A) 1 %; HCT 22.9 % (39.0-53.0); HGB 7.7 gm/dL (13.0-17.5); Hyperchromasia Slight; Hypochromasia Slight; Lymphocytes # (A) 0.6 k/uL (1.0-4.8); Lymphocytes % (A) 18 %; MCH 28.1 pg (25.0-35.0); MCHC 33.5 g/dL (31.0-37.0); Mean Platelet Volume 7.5; Microcytosis Slight; Monocytes # (A) 0.2 k/uL (0-1.0); Monocytes % (A) 7 %; Neutrophils # (A) 2.3 k/uL (1.3-7.7); Neutrophils % (A) 71 %; Poikilocytosis Marked; RBC 2.73 m/uL (4.30-5.90); RDW 22.6 % (11.5-15.5); WBC 3.3 k/uL (3.8-10.6)
[2018-05-19 16:11] LABS: Platelet Count 65 k/uL (150-450)
[2018-05-19 16:12] LABS: Appearance,Urine Clear (Clear); Bilirubin,Urine Negative (Negative); Blood,Urine Negative (Negative); Color,Urine Yellow; Glucose,Urine (UA) Negative (Negative); Ketones,Urine Negative (Negative); Leukocyte Esterase,Urine Negative (Negative); Nitrite,Urine Negative (Negative); Protein,Urine Negative (Negative); Urobilinogen,Urine <2.0 mg/dL (<2.0)
[2018-05-19 16:27] LABS: Albumin 3.7 g/dL (3.5-5.0); Calcium 8.7 mg/dL (8.4-10.2); Potassium 4.7 mmol/L (3.5-5.1); Total Bilirubin 3.9 mg/dL (0.2-1.3); Total Protein 6.3 g/dL (6.3-8.2)
[2018-05-19 16:45] LABS: Uric Acid 15.4 mg/dL (3.5-8.5)
[2018-05-19 17:44] VITALS: BP 123/60; PULSE 69; TEMP 97.7
== END 2018-05-19 17:46 | disposition home or self-care (01) ==
LOC: EC 12:48
DX: M10.9 Gout, unspecified (principal); M79.7 Fibromyalgia; E78.5 Hyperlipidemia, unspecified; I10 Essential (primary) hypertension; M19.90 Unspecified osteoarthritis, unspecified site; E11.40 Type 2 diabetes mellitus with diabetic neuropathy, unspecified; K74.60 Unspecified cirrhosis of liver; Z86.73 Personal history of transient ischemic attack (TIA), and cerebral infarction without residual deficits; Z87.891 Personal history of nicotine dependence; Z94.4 Liver transplant status; Z79.891 Long term (current) use of opiate analgesic; Z79.899 Other long term (current) drug therapy; Z91.041 Radiographic dye allergy status; Z91.013 Allergy to seafood
CPT/HCPCS: 36415; 80053; 81003; 84550; 85025; 87040; 99284

== ENCOUNTER → 2018-06-05 | Outpatient (CLI) | payer OTHER | LOC: LABWHC1 08:24 | PROVIDERS: ATTEND Internal Medicine Hepatology | DX: Z48.23 Encounter for aftercare following liver transplant (principal); Z94.4 Liver transplant status | CPT/HCPCS: 36415; 83010; 83615 ==

== ENCOUNTER → 2018-06-12 | Outpatient (CLI) | payer OTHER ==
--- NOTE | 2018-06-12 22:56 | XR ---
EXAMINATION TYPE: XR chest 2V DATE OF EXAM: 06/12/2018 COMPARISON: 11/18/2017 HISTORY: 63-year-old male with shortness of breath TECHNIQUE: Frontal and lateral views FINDINGS: Heart borderline to mildly enlarged. Diffuse interstitial densities and prominence to the pulmonary v asculature. Trace bilateral pleural effusions are present, new from prior exam. IMPRESSION: Borderline to mild cardiomegaly, interstitial changes, and trace bilateral pleural effusions. Correla te for fluid overload state and pulmonary vascular congestion.
== END | disposition home or self-care (01) ==
LOC: RADXRMAIN 14:15
PROVIDERS: ATTEND Family Medicine
DX: I51.7 Cardiomegaly (principal); J98.4 Other disorders of lung
CPT/HCPCS: 71046

== ENCOUNTER 2018-06-14 09:26 | Emergency (ER) | payer OTHER ==
[2018-06-14 09:44] VITALS: RESP 18
[2018-06-14] MEDS ORDERED: PANTOPRAZOLE 40 MG/10 ML VIAL IVP STA (10:21)
--- NOTE | 2018-06-14 10:29 | ED ---
General Adult HPI - General Chief complaint: Recheck/Abnormal Lab/Rx Stated complaint: LOW HEMOGLOBIN Time Seen by Provider: 06/14/18 09:47 Source: patient, family, RN notes reviewed Mode of arrival: wheelchair Limitations: no limitations - History of Present Illness Initial comments: Patient is a pleasant 63-year-old male presenting to the emergency department with fatigue and weakness and dyspnea. Symptoms have progressed with the past several days. Patient did have blood work showing low hemoglobin. Patient was advised by his transplant team to come to our emergency department for blood transfusion. Patient does have history of previous thoracentesis from pleural effusion. Patient did have a liver transplant back in January. Patient has been told is problems or not related to his liver transplant in the liver is doing fine. Patient does have diffuse swelling. Patient is fatigued and short of breath with walking5- 10 feet. Dyspnea also worsens while lying down. No black tarry stools. Patient feels his skin is starting to return somewhat yellow. Patient does have swelling of his abdomen and legs. Patient does have history of previous swelling. - Related Data Home Medications Medication Instructions Recorded Confirmed Entecavir [Baraclude] 0.5 mg PO Q48H 03/10/14 06/14/18 DULoxetine HCL [Cymbalta] 60 mg PO DAILY@89904/14/15 06/14/18 Tamsulosin HCl [Flomax] 0.4 mg PO HS@2100 04/14/15 06/14/18 Atorvastatin [Lipitor] 10 mg PO DAILY@0904/16/17 06/14/18 HYDROmorphone [Dilaudid] 2 mg PO TID@0700,1500,2100 11/18/17 06/14/18 [place]-3 Fatty Acids/Fish Oil [Fish 1 cap PO DAILY@0911/18/17 06/14/18 Oil 1,000 mg Softgel] Omeprazole [PriLOSEC] 20 mg PO DAILY@0611/18/17 06/14/18 Acetaminophen Tab [Tylenol Tab] 325 mg PO Q4H PRN 06/14/18 06/14/18 Aspirin EC [Ecotrin] 325 mg PO DAILY@0906/14/18 06/14/18 Dapsone 100 mg PO DAILY@1200 06/14/18 06/14/18 Furosemide [Lasix] 40 mg PO DAILY@0900 06/14/18 06/14/18 Gabapentin [Neurontin] 600 mg PO TID@0900,1500,2100 06/14/18 06/14/18 Insulin Aspart [NovoLOG 15 unit SQ AC-TID 06/14/18 06/14/18 (formulary)] Insulin Glargine,Hum.rec.anlog 30 unit SQ HS 06/14/18 06/14/18 [Basaglar Kwikpen U-100] Labetalol [Trandate] 200 mg PO TID@0700,1500,2300 06/14/18 06/14/18 Methocarbamol [Robaxin] 500 mg PO BID PRN 06/14/18 06/14/18 Tacrolimus [Prograf] 2 mg PO BID@0900,2100 06/14/18 06/14/18 Tacrolimus [Prograf] 5 mg PO BID@0900,2100 06/14/18 06/14/18 Ursodiol [Actigall] 600 mg PO BID 06/14/18 06/14/18 predniSONE 5 mg PO DAILY@0900 06/14/18 06/14/18 Allergies Allergy/AdvReac Type Severity Reaction Status Date / Time Iodinated Contrast- Oral and Allergy Rash/Hives Verified 06/14/18 10:36 IV Dye shellfish derived [Shellfish] AdvReac complications Verified 06/14/18 10:36 with liver Review of Systems ROS Statement: Those systems with pertinent positive or pertinent negative responses have been documented in the HPI. ROS Other: All systems not noted in ROS Statement are negative. Constitutional: Denies: fever Eyes: Denies: eye pain ENT: Denies: ear pain Respiratory: Reports: dyspnea Cardiovascular: Denies: chest pain Endocrine: Reports: fatigue Gastrointestinal: Denies: abdominal pain Genitourinary: Denies: dysuria Musculoskeletal: Denies: back pain Skin: Reports: as per HPI Neurological: Denies: weakness Past Medical History Past Medical History: CVA/TIA, Diabetes Mellitus, Fibromyalgia, Hyperlipidemia, Hypertension, Liver Disease Additional Past Medical History / Comment(s): neck/back pain, diet controlled dm neuropathy, hep B, [place], "non alcoholic"cirrhosis of liver. 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, ear surgery as a child, cataracts Past Anesthesia/Blood Transfusion Reactions: No Reported Reaction Additional Past Anesthesia/Blood Transfusion Reaction / Comment(s): past blood trnsfusions- no reacation Past Psychological History: No Psychological Hx Reported Smoking Status: Former smoker Past Alcohol Use History: None Reported Past Drug Use History: None Reported - Past Family History Father Family Medical History: Liver Disease Mother Family Medical History: Congestive Heart Failure (CHF) Additional Family Medical History / Comment(s): Patient lives with mother and sister and familymembers provide care to both. General Exam Limitations: no limitations General appearance: alert, in no apparent distress Head exam: Present: atraumatic Eye exam: Present: scleral icterus ENT exam: Present: normal oropharynx Neck exam: Present: normal inspection Respiratory exam: Present: decreased breath sounds (Right base) Cardiovascular Exam: Present: regular rate, normal rhythm GI/Abdominal exam: Present: soft, distended (Mild distention). Absent: tenderness Extremities exam: Present: pedal edema. Absent: calf tenderness Back exam: Present: normal inspection Neurological exam: Present: alert Expanded Speech: Present: fluid speech Motor strength exam: RUE: 5, LUE: 5, RLE: 3 (Patient states chronic.), LLE: 5 Psychiatric exam: Present: normal affect, normal mood Skin exam: Present: other (There does appear to be a mild jaundice appearance) Course Vital Signs 06/14/18 06/14/18 06/14/18 09:36 12:30 13:00 Temperature 98.2 F Pulse Rate 64 56 L 57 L Respiratory 18 18 18 Rate Blood Pressure 133/81 118/46 118/46 O2 Sat by Pulse 96 99 98 Oximetry 06/14/18 14:00 Temperature Pulse Rate 56 L Respiratory 18 Rate Blood Pressure 138/65 O2 Sat by Pulse 98 Oximetry - Reevaluation(s) Reevaluation #1: 06/14/18 15:17 Still waiting to hear from patient's transplant doctor. They have previously been paged. 06/14/18 15:24 Call received from Estefany with the patient's transplant team. She does recommend calling a different transplant team for inpatient at [phone] 06/14/18 15:41 Case was discussed in detail with GI fellow, , who does feel patient should be transferred and does provide number for transfer team. He recommends no additional medication at this time. 06/14/18 15:50 Case was discussed with Nayeli from the transfer team. Case was then discussed with Dr. Hurtado, who will accept transfer to . EKG Findings - EKG Comments: EKG Findings:: Sinus bradycardia 56. [place] 154. QRS 84. QT 432. QTC 416. Normal axis. Normal QRS. No acute ST change. Medical Decision Making - Lab Data Result diagrams: 06/14/18 10:58 06/14/18 10:58 Lab Results 06/14/18 06/14/18 06/14/18 Range/Units 10:58 10:58 10:58 WBC 2.4 L (3.8-10.6) k/uL RBC 2.63 L (4.30-5.90) m/uL Hgb 7.5 L (13.0-17.5) gm/dL Hct 22.3 L (39.0-53.0) % MCV 84.9 (80.0-100.0) fL MCH 28.4 (25.0-35.0) pg MCHC 33.5 (31.0-37.0) g/dL RDW 22.0 H (11.5-15.5) % Plt Count 58 L (150-450) k/uL Neutrophils % 62 % Lymphocytes % 24 % Monocytes % 9 % Eosinophils % 2 % Basophils % 1 % Neutrophils # 1.5 (1.3-7.7) k/uL Lymphocytes # 0.6 L (1.0-4.8) k/uL Monocytes # 0.2 (0-1.0) k/uL Eosinophils # 0.1 (0-0.7) k/uL Basophils # 0.0 (0-0.2) k/uL Hypochromasia Moderate Poikilocytosis Marked Anisocytosis Moderate Microcytosis Slight PT (9.0-12.0) sec INR (<1.2) APTT (22.0-30.0) sec Sodium 142 (137-145) mmol/L Potassium 4.6 (3.5-5.1) mmol/L Chloride 108 H (98-107) mmol/L Carbon Dioxide 26 (22-30) mmol/L Anion Gap 8 mmol/L BUN 31 H (9-20) mg/dL Creatinine 1.73 H (0.66-1.25) mg/dL Est GFR (CKD-EPI)AfAm 48 (>60 ml/min/1.73 sqM) Est GFR (CKD-EPI)NonAf 41 (>60 ml/min/1.73 sqM) Glucose 154 H (74-99) mg/dL POC Glucose (mg/dL) (75-99) mg/dL POC Glu Hearing Officer ID Plasma Lactic Acid Daniel (0.7-2.0) mmol/L Calcium 9.0 (8.4-10.2) mg/dL Phosphorus 3.8 (2.5-4.5) mg/dL Magnesium 1.8 (1.6-2.3) mg/dL Total Bilirubin 4.8 H (0.2-1.3) mg/dL AST 16 L (17-59) U/L ALT 20 L (21-72) U/L Alkaline Phosphatase 35 L (38-126) U/L Total Creatine Kinase 32 L (55-170) U/L CK-MB (CK-2) 0.7 (0.0-2.4) ng/mL CK-MB (CK-2) Rel Index 2.2 Troponin I <0.012 (0.000-0.034) ng/mL NT-Pro-B Natriuret Pep pg/mL Total Protein 6.1 L (6.3-8.2) g/dL Albumin 3.7 (3.5-5.0) g/dL TSH 2.210 (0.465-4.680) mIU/L Free T4 0.94 (0.78-2.19) ng/dL Free T3 pg/mL 2.3 L (2.8-5.3) pg/ml Urine Color Urine Appearance (Clear) Urine pH (5.0-8.0) Ur Specific [place] (1.001-1.035) Urine Protein (Negative) Urine Glucose (UA) (Negative) Urine Ketones (Negative) Urine Blood (Negative) Urine Nitrite (Negative) Urine Bilirubin (Negative) Urine Urobilinogen (<2.0) mg/dL Ur Leukocyte Esterase (Negative) Stool Occult Blood (Negative) 06/14/18 06/14/18 06/14/18 Range/Units 10:58 10:58 10:58 WBC (3.8-10.6) k/uL RBC (4.30-5.90) m/uL Hgb (13.0-17.5) gm/dL Hct (39.0-53.0) % MCV (80.0-100.0) fL MCH (25.0-35.0) pg MCHC (31.0-37.0) g/dL RDW (11.5-15.5) % Plt Count (150-450) k/uL Neutrophils % % Lymphocytes % % Monocytes % % Eosinophils % % Basophils % % Neutrophils # (1.3-7.7) k/uL Lymphocytes # (1.0-4.8) k/uL Monocytes # (0-1.0) k/uL Eosinophils # (0-0.7) k/uL Basophils # (0-0.2) k/uL Hypochromasia Poikilocytosis Anisocytosis Microcytosis PT 11.9 (9.0-12.0) sec INR 1.2 H (<1.2) APTT 26.7 (22.0-30.0) sec Sodium (137-145) mmol/L Potassium (3.5-5.1) mmol/L Chloride (98-107) mmol/L Carbon Dioxide (22-30) mmol/L Anion Gap mmol/L BUN (9-20) mg/dL Creatinine (0.66-1.25) mg/dL Est GFR (CKD-EPI)AfAm (>60 ml/min/1.73 sqM) Est GFR (CKD-EPI)NonAf (>60 ml/min/1.73 sqM) Glucose (74-99) mg/dL POC Glucose (mg/dL) (75-99) mg/dL POC Glu Hearing Officer ID Plasma Lactic Acid Daniel 1.2 (0.7-2.0) mmol/L Calcium (8.4-10.2) mg/dL Phosphorus (2.5-4.5) mg/dL Magnesium (1.6-2.3) mg/dL Total Bilirubin (0.2-1.3) mg/dL AST (17-59) U/L ALT (21-72) U/L Alkaline Phosphatase (38-126) U/L Total Creatine Kinase (55-170) U/L CK-MB (CK-2) (0.0-2.4) ng/mL CK-MB (CK-2) Rel Index Troponin I (0.000-0.034) ng/mL NT-Pro-B Natriuret Pep 1430 pg/mL Total Protein (6.3-8.2) g/dL Albumin (3.5-5.0) g/dL TSH (0.465-4.680) mIU/L Free T4 (0.78-2.19) ng/dL Free T3 pg/mL (2.8-5.3) pg/ml Urine Color Urine Appearance (Clear) Urine pH (5.0-8.0) Ur Specific [place] (1.001-1.035) Urine Protein (Negative) Urine Glucose (UA) (Negative) Urine Ketones (Negative) Urine Blood (Negative) Urine Nitrite (Negative) Urine Bilirubin (Negative) Urine Urobilinogen (<2.0) mg/dL Ur Leukocyte Esterase (Negative) Stool Occult Blood (Negative) 06/14/18 06/14/18 06/14/18 Range/Units 10:58 13:28 15:16 WBC (3.8-10.6) k/uL RBC (4.30-5.90) m/uL Hgb (13.0-17.5) gm/dL Hct (39.0-53.0) % MCV (80.0-100.0) fL MCH (25.0-35.0) pg MCHC (31.0-37.0) g/dL RDW (11.5-15.5) % Plt Count (150-450) k/uL Neutrophils % % Lymphocytes % % Monocytes % % Eosinophils % % Basophils % % Neutrophils # (1.3-7.7) k/uL Lymphocytes # (1.0-4.8) k/uL Monocytes # (0-1.0) k/uL Eosinophils # (0-0.7) k/uL Basophils # (0-0.2) k/uL Hypochromasia Poikilocytosis Anisocytosis Microcytosis PT (9.0-12.0) sec INR (<1.2) APTT (22.0-30.0) sec Sodium (137-145) mmol/L Potassium (3.5-5.1) mmol/L Chloride (98-107) mmol/L Carbon Dioxide (22-30) mmol/L Anion Gap mmol/L BUN (9-20) mg/dL Creatinine (0.66-1.25) mg/dL Est GFR (CKD-EPI)AfAm (>60 ml/min/1.73 sqM) Est GFR (CKD-EPI)NonAf (>60 ml/min/1.73 sqM) Glucose (74-99) mg/dL POC Glucose (mg/dL) 119 H (75-99) mg/dL POC Glu Hearing Officer ID Aleta Crook Plasma Lactic Acid Daniel (0.7-2.0) mmol/L Calcium (8.4-10.2) mg/dL Phosphorus (2.5-4.5) mg/dL Magnesium (1.6-2.3) mg/dL Total Bilirubin (0.2-1.3) mg/dL AST (17-59) U/L ALT (21-72) U/L Alkaline Phosphatase (38-126) U/L Total Creatine Kinase (55-170) U/L CK-MB (CK-2) (0.0-2.4) ng/mL CK-MB (CK-2) Rel Index Troponin I (0.000-0.034) ng/mL NT-Pro-B Natriuret Pep pg/mL Total Protein (6.3-8.2) g/dL Albumin (3.5-5.0) g/dL TSH (0.465-4.680) mIU/L Free T4 (0.78-2.19) ng/dL Free T3 pg/mL (2.8-5.3) pg/ml Urine Color Yellow Urine Appearance Clear (Clear) Urine pH 5.0 (5.0-8.0) Ur Specific [place] 1.009 (1.001-1.035) Urine Protein Negative (Negative) Urine Glucose (UA) Negative (Negative) Urine Ketones Negative (Negative) Urine Blood Negative (Negative) Urine Nitrite Negative (Negative) Urine Bilirubin Negative (Negative) Urine Urobilinogen <2.0 (<2.0) mg/dL Ur Leukocyte Esterase Negative (Negative) Stool Occult Blood Negative (Negative) - Radiology Data Radiology results: image reviewed (Chest x-ray shows small pleural effusion and increased interstitial markings consistent with mild CHF exacerbation.) Disposition Clinical Impression: Cirrhosis, Pancytopenia, CHF (congestive heart failure), Edema Disposition: OTHER INSTITUTION NOT DEFINED Is patient prescribed a controlled substance at d/c from ED?: No Referrals: Ivan Merchant DO [Primary Care Provider] - 1-2 days Time of Disposition: 15:52 - Out of Hospital Transfer - Req. Specs Out of Hospital Transfer - Requested Specifics: Other Emergency Center
[2018-06-14 11:36] LABS: Anisocytosis Moderate; Basophils % (A) 1 %; Eosinophils # (A) 0.1 k/uL (0-0.7); Eosinophils % (A) 2 %; HCT 22.3 % (39.0-53.0); HGB 7.5 gm/dL (13.0-17.5); Hypochromasia Moderate; Lymphocytes # (A) 0.6 k/uL (1.0-4.8); Lymphocytes % (A) 24 %; MCH 28.4 pg (25.0-35.0); MCHC 33.5 g/dL (31.0-37.0); MCV 84.9 fL (80.0-100.0); Microcytosis Slight; Monocytes # (A) 0.2 k/uL (0-1.0); Monocytes % (A) 9 %; Neutrophils # (A) 1.5 k/uL (1.3-7.7); Neutrophils % (A) 62 %; Poikilocytosis Marked; RBC 2.63 m/uL (4.30-5.90); WBC 2.4 k/uL (3.8-10.6)
--- NOTE | 2018-06-14 11:37 | XR ---
EXAMINATION TYPE: XR chest 2V DATE OF EXAM: 06/14/2018 COMPARISON: 06/12/2018 HISTORY: 63-year-old male with weakness for one week TECHNIQUE: AP and lateral views FINDINGS: Heart remains mildly enlarged. Mild diffuse interstitial prominence stable to slightly increased. Sma ll bilateral pleural effusions persist, slightly increased on the right. IMPRESSION: Mild cardiomegaly with interstitial changes and persistent small effusions, slightly increased on the right now. Correlate for fluid overload state/CHF with pulmonary vascular congestion.
[2018-06-14 11:39] LABS: Platelet Count 58 k/uL (150-450)
[2018-06-14 11:45] LABS: Albumin 3.7 g/dL (3.5-5.0); Magnesium 1.8 mg/dL (1.6-2.3); Phosphorus 3.8 mg/dL (2.5-4.5); Potassium 4.6 mmol/L (3.5-5.1); Total Bilirubin 4.8 mg/dL (0.2-1.3)
[2018-06-14 11:54] LABS: INR 1.2 (<1.2); Partial Thromboplastin Time 26.7 sec (22.0-30.0); Prothrombin Time 11.9 sec (9.0-12.0)
[2018-06-14 12:01] LABS: T4, Free (Free Thyroxine) 0.94 ng/dL (0.78-2.19)
[2018-06-14 12:08] LABS: Creatine Kinase 32 U/L (55-170)
[2018-06-14 12:21] LABS: Creatine Kinase MB 0.7 ng/mL (0.0-2.4); Troponin I <0.012 ng/mL (0.000-0.034)
[2018-06-14 12:30] LABS: Total Protein 6.1 g/dL (6.3-8.2)
[2018-06-14 14:11] LABS: Appearance,Urine Clear (Clear); Bilirubin,Urine Negative (Negative); Blood,Urine Negative (Negative); Color,Urine Yellow; Glucose,Urine (UA) Negative (Negative); Ketones,Urine Negative (Negative); Leukocyte Esterase,Urine Negative (Negative); Nitrite,Urine Negative (Negative); Protein,Urine Negative (Negative); Specific Gravity,Urine 1.009 (1.001-1.035); Urobilinogen,Urine <2.0 mg/dL (<2.0)
[2018-06-14] MEDS ORDERED: INSULIN ASPART 100 UNIT/ML 1 ML 10 ML VIAL SQ STA (15:30)
[2018-06-14 15:38] LABS: Glucose,Whole Blood 119 mg/dL (75-99)
[2018-06-14 16:53] VITALS: BP 132/55; PULSE 64; TEMP 98
== END 2018-06-14 17:40 | disposition other institution (70) ==
LOC: EC 09:26
DX: I11.0 Hypertensive heart disease with heart failure (principal); I50.9 Heart failure, unspecified; K74.60 Unspecified cirrhosis of liver; D61.818 Other pancytopenia; E11.40 Type 2 diabetes mellitus with diabetic neuropathy, unspecified; M79.7 Fibromyalgia; E78.5 Hyperlipidemia, unspecified; G25.81 Restless legs syndrome; Z86.73 Personal history of transient ischemic attack (TIA), and cerebral infarction without residual deficits; Z86.19 Personal history of other infectious and parasitic diseases; Z87.891 Personal history of nicotine dependence; Z79.891 Long term (current) use of opiate analgesic; Z79.4 Long term (current) use of insulin; Z79.52 Long term (current) use of systemic steroids; Z79.82 Long term (current) use of aspirin; Z79.899 Other long term (current) drug therapy; Z91.013 Allergy to seafood; Z91.041 Radiographic dye allergy status
CPT/HCPCS: 36415; 93005; 84439; 84481; 83880; 80053; 82550; 82553; 83605; 83735; 84100; 84443; 84484; 85025; 85610; 85730; 82272; 81003; 71046; 99285; 96374; C9113

== ENCOUNTER → 2018-08-14 | Outpatient (CLI) | payer OTHER ==
--- NOTE | 2018-08-14 16:04 | XR ---
EXAMINATION TYPE: XR chest 2V DATE OF EXAM: 08/14/2018 COMPARISON: 06/14/2018 HISTORY: 63-year-old male with chest pain TECHNIQUE: Frontal and lateral views FINDINGS: Heart upper limits of normal in size. Aorta and pulmonary vasculature within normal limits. Some stra ndy bibasilar atelectasis. No consolidation or pleural effusion. IMPRESSION: Borderline heart size and chronic appearing changes. No acute process seen.
== END | disposition home or self-care (01) ==
LOC: RADXRMAIN 15:41
PROVIDERS: ATTEND Family Medicine
DX: R07.9 Chest pain, unspecified (principal)
CPT/HCPCS: 71046

== ENCOUNTER → 2018-08-21 | Outpatient (CLI) | payer OTHER ==
[2018-08-22 00:49] LABS: LDL Cholesterol,Calculated 24.8 mg/dL (0.0-131.0); VLDL Calculation 12.2 mg/dL (5.00-40.00)
== END | disposition home or self-care (01) ==
LOC: LABWHC1 08:33
PROVIDERS: ATTEND Family Medicine
DX: E11.9 Type 2 diabetes mellitus without complications (principal); R53.83 Other fatigue
CPT/HCPCS: 36415; 80061; 82306; 84439; 84443; 84481

== ENCOUNTER 2018-08-22 13:17 | Emergency (ER) | payer OTHER ==
[2018-08-22 13:24] VITALS: RESP 18
[2018-08-22] MEDS ORDERED: HYDROmorphone 1 MG/ML 1 ML SYRINGE IVP STA (14:31)
[2018-08-22] MEDS ORDERED: SODIUM CHLORIDE 0.9% 500 ML 500 ML IV STA (14:31)
[2018-08-22] MEDS ORDERED: SODIUM CHLORIDE 0.9% 1,000 ML IV STA (14:33)
--- NOTE | 2018-08-22 14:40 | ED ---
General Adult HPI - General Chief complaint: Extremity Problem,Nontraumatic Stated complaint: Foot pain Time Seen by Provider: 08/22/18 13:52 Source: patient, RN notes reviewed, old records reviewed Mode of arrival: wheelchair Limitations: no limitations - History of Present Illness Initial comments: 62-year-old male patient past medical history of fibromyalgia, chronic pain, CVA , CHF, hepatitis B, liver failure status post transplant presents to ED with atraumatic exacerbation of left ankle and foot pain. Patient states that he has daily pain in multiple areas of body throughout the day including ankles and feet bilaterally, knees, shoulders and back. Patient sees his primary care provider and pain management for this problem. Patient takes daily narcotic pain medications for this problem. Patient states that today he has worsening pain in his left ankle and foot. Patient denies any recent trauma. Patient states that this pain is similar to pain that he has had in the past. Patient contacted both his primary care provider and his rn pain management and was unable to be seen by them today saying presented to ED. Patient states that his primary intention of ED visits is pain control. Patient is ambulatory with pain. Patient denies any other symptoms. Patient denies chest pain, shortness of breath, abdominal pain, nausea vomiting or diarrhea. Systemic: Pt denies fatigue, fever/chills, rash. Pt denies weakness, night sweats, weight loss. Neuro: Pt denies headache, visual disturbances, syncope or pre-syncope. HEENT: Pt denies ocular discharge or irritation, otalgia, rhinorrhea, pharyngitis or notable lymphadenopathy. Cardiopulmonary: Pt denies chest pain, SOB, heart palpitations, dyspnea on exertion. Abdominal/GI: Pt denies abdominal pain, n/v/d. : Pt denies dysuria, burning w/ urination, frequency/urgency. Denies new onset urinary or bowel incontinence. MSK: Pt denies loss of strength or function in extremities. Neuro: Pt denies new onset weakness, paresthesias. - Related Data Home Medications Medication Instructions Recorded Confirmed Entecavir [Baraclude] 0.5 mg PO Q48H 03/10/14 08/22/18 Tamsulosin HCl [Flomax] 0.4 mg PO HS@2100 04/14/15 08/22/18 Atorvastatin [Lipitor] 10 mg PO DAILY@0900 04/16/17 08/22/18 HYDROmorphone [Dilaudid] 2 mg PO TID 11/18/17 08/22/18 [place]-3 Fatty Acids/Fish Oil [Fish 1 cap PO DAILY@0900 11/18/17 08/22/18 Oil 1,000 mg Softgel] Omeprazole [PriLOSEC] 20 mg PO DAILY@0600 11/18/17 08/22/18 Aspirin EC [Ecotrin] 325 mg PO DAILY@0900 06/14/18 08/22/18 Gabapentin [Neurontin] 600 mg PO TID 06/14/18 08/22/18 Insulin Aspart [NovoLOG 15 unit SQ AC-TID 06/14/18 08/22/18 (formulary)] Insulin Glargine,Hum.rec.anlog 30 unit SQ HS 06/14/18 08/22/18 [Basaglar Kwikpen U-100] Methocarbamol [Robaxin] 500 mg PO BID PRN 06/14/18 08/22/18 Tacrolimus [Prograf] 2 mg PO BID@0900,2100 06/14/18 08/22/18 Tacrolimus [Prograf] 5 mg PO BID@0900,2100 06/14/18 08/22/18 Ursodiol [Actigall] 600 mg PO BID 06/14/18 08/22/18 Vortioxetine Hydrobromide 5 mg PO BID 08/22/18 08/22/18 [Trintellix] predniSONE 7.5 mg PO DAILY 08/22/18 08/22/18 Allergies Allergy/AdvReac Type Severity Reaction Status Date / Time No Known Allergies Allergy Verified 08/22/18 13:38 Review of Systems ROS Statement: Those systems with pertinent positive or pertinent negative responses have been documented in the HPI. ROS Other: All systems not noted in ROS Statement are negative. Past Medical History Past Medical History: CVA/TIA, Diabetes Mellitus, Fibromyalgia, Hyperlipidemia, Hypertension, Liver Disease Additional Past Medical History / Comment(s): neck/back pain, diet controlled dm neuropathy, hep B, [place], "non alcoholic"cirrhosis of liver. 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, ear surgery as a child, cataracts Past Anesthesia/Blood Transfusion Reactions: No Reported Reaction Additional Past Anesthesia/Blood Transfusion Reaction / Comment(s): past blood trnsfusions- no reacation Past Psychological History: No Psychological Hx Reported Smoking Status: Former smoker Past Alcohol Use History: None Reported Past Drug Use History: None Reported - Past Family History Father Family Medical History: Liver Disease Mother Family Medical History: Congestive Heart Failure (CHF) Additional Family Medical History / Comment(s): Patient lives with mother and sister and familymembers provide care to both. General Exam - General Exam Comments Initial Comments: Constitutional: NAD, AOX3, Pt has pleasant affect. HEENT: NC/AT, trachea midline, neck supple, no lymphadenopathy. Posterior pharynx non erythematous, without exudates. External ears appear normal, without discharge. Mucous membranes moist. Eyes PERRLA, EOM intact. There is no scleral icterus. No pallor noted. Cardiopulmonary: RRR, no murmurs, rubs or gallops, no JVD noted. Lungs CTAB in anterior and posterior shepherd. No peripheral edema. Abdominal exam: Abdomen soft and non-distended. Abdomen non-tender to palpation in all 4 quadrants. Bowel sounds active in LLQ. No hepatosplenomegaly. No ecchymosis Neuro: CN II-XII grossly intact. No nuchal rigidity. MSK: No posterior calf tenderness bilaterally, homans sign negative bilaterally. Posterior tibialis and radial pulse +2 bilaterally. Sensation intact in upper and lower extremities. Full active ROM in upper and lower extremities, 5/5 stregnth. lateral L ankle mildly tender to palpation, no erythema, drainage or ulceration. Pt sensation intact, able to wiggle toes. Capillary refill <2 seconds. Limitations: no limitations Course Vital Signs 08/22/18 13:20 Temperature 98 F Pulse Rate 77 Respiratory 18 Rate Blood Pressure 154/89 O2 Sat by Pulse 99 Oximetry Medical Decision Making - Medical Decision Making 62-year-old male patient past medical history of fibromyalgia, chronic pain, CVA , CHF, hepatitis B, liver failure status post transplant presents to ED with atraumatic exacerbation of left ankle and foot pain. Patient states that he has daily pain in multiple areas of body throughout the day including ankles and feet bilaterally, knees, shoulders and back. Patient sees his primary care provider and pain management for this problem. Pt VSS, afebrile. Physical exam displayed: No posterior calf tenderness bilaterally, homans sign negative bilaterally. Posterior tibialis and radial pulse +2 bilaterally. Sensation intact in upper and lower extremities. Full active ROM in upper and lower extremities, 5/5 stregnth. lateral L ankle mildly tender to palpation, no erythema, drainage or ulceration. Pt sensation intact, able to wiggle toes. Capillary refill <2 seconds. Plain film of L ankle and foot did not display acute process. Patient pain well-controlled in ED. Long discussion with patient and family in regards to his chronic pain, pain management. Patient referred to orthopedic surgeon for further evaluation. Patient to follow up with primary care physician and pain management tomorrow. Patient to follow up with orthopedic surgeon as soon as possible. Patient to return to ED if new signs or symptoms develop or if condition worsens in anyway. Case discussed in depth with Dr. Bhandari. Disposition Clinical Impression: Ankle pain, left Disposition: HOME SELF-CARE Condition: Stable Instructions (If sedation given, give patient instructions): Chronic Pain (ED) , Arthralgia (ED) Additional Instructions: Patient to adhere to previously discussed treatment plan and will take medication(s) as directed. Patient to follow up with PCP in 1-2 days. Patient to return to ED if symptoms do not improve. Is patient prescribed a controlled substance at d/c from ED?: No Referrals: Ivan Merchant DO [Primary Care Provider] - 1-2 days Umberto Manriquez MD [STAFF PHYSICIAN] - 1-2 days
--- NOTE | 2018-08-22 15:05 | XR ---
EXAMINATION TYPE: XR ankle complete LT, XR foot complete LT DATE OF EXAM: 08/22/2018 CLINICAL HISTORY: Pain. TECHNIQUE: Frontal, lateral and oblique images of the left ankle and foot are obtained. COMPARISON: None. FINDINGS: There is no acute fracture/dislocation evident in the left ankle. The ankle mortise appea rs within normal limits. The overlying soft tissue appears unremarkable. There is no acute fracture or dislocation evident in the left foot. The joint spaces in the left nicolle t are preserved. Overlying soft tissue is unremarkable. IMPRESSION: As above.
--- NOTE | 2018-08-22 16:01 | ED ---
Medical Decision Making - Medical Decision Making pt not driving home Disposition Clinical Impression: Ankle pain, left Disposition: HOME SELF-CARE Condition: Stable Instructions (If sedation given, give patient instructions): Chronic Pain (ED) , Arthralgia (ED) Additional Instructions: Patient to adhere to previously discussed treatment plan and will take medication(s) as directed. Patient to follow up with PCP in 1-2 days. Patient to return to ED if symptoms do not improve. Is patient prescribed a controlled substance at d/c from ED?: No Referrals: Ivan Merchant DO [Primary Care Provider] - 1-2 days Umberto Manriquez MD [STAFF PHYSICIAN] - 1-2 days
[2018-08-22 16:29] VITALS: BP 129/70; PULSE 82; TEMP 97.7
== END 2018-08-22 16:38 | disposition home or self-care (01) ==
LOC: EC 13:17
DX: M25.572 Pain in left ankle and joints of left foot (principal); M25.571 Pain in right ankle and joints of right foot; M79.672 Pain in left foot; M79.671 Pain in right foot; M25.562 Pain in left knee; M25.561 Pain in right knee; M25.512 Pain in left shoulder; M25.511 Pain in right shoulder; M54.9 Dorsalgia, unspecified; G89.29 Other chronic pain; G25.81 Restless legs syndrome; E11.40 Type 2 diabetes mellitus with diabetic neuropathy, unspecified; I10 Essential (primary) hypertension; E78.5 Hyperlipidemia, unspecified; M79.7 Fibromyalgia; Z87.891 Personal history of nicotine dependence; Z79.52 Long term (current) use of systemic steroids; Z79.4 Long term (current) use of insulin; Z79.82 Long term (current) use of aspirin; Z79.891 Long term (current) use of opiate analgesic; Z87.19 Personal history of other diseases of the digestive system; Z86.73 Personal history of transient ischemic attack (TIA), and cerebral infarction without residual deficits; Z94.4 Liver transplant status
CPT/HCPCS: 73610; 73630; 99284; 96374; J1170

== ENCOUNTER 2018-08-26 04:57 | Emergency (ER) | payer OTHER ==
[2018-08-26] MEDS ORDERED: HYDROmorphone 1 MG/ML 1 ML SYRINGE IVP STA ×4 (05:19→07:24)
[2018-08-26 05:42] LABS: Anisocytosis Moderate; Basophils % (A) 1 %; Eosinophils % (A) 1 %; HGB 7.7 gm/dL (13.0-17.5); Hyperchromasia Slight; Hypochromasia Slight; Lymphocytes # (A) 0.5 k/uL (1.0-4.8); Lymphocytes % (A) 15 %; MCH 29.1 pg (25.0-35.0); MCV 83.2 fL (80.0-100.0); Mean Platelet Volume 8.5; Microcytosis Slight; Monocytes # (A) 0.3 k/uL (0-1.0); Monocytes % (A) 9 %; Neutrophils # (A) 2.5 k/uL (1.3-7.7); Neutrophils % (A) 70 %; Poikilocytosis Marked; RBC 2.64 m/uL (4.30-5.90); RDW 21.4 % (11.5-15.5); WBC 3.6 k/uL (3.8-10.6)
[2018-08-26 06:00] LABS: Platelet Count 65 k/uL (150-450); Polychromasia Present
[2018-08-26 06:10] LABS: Albumin 3.6 g/dL (3.5-5.0); Calcium 8.6 mg/dL (8.4-10.2); Potassium 4.2 mmol/L (3.5-5.1); Total Bilirubin 3.4 mg/dL (0.2-1.3)
[2018-08-26 06:34] LABS: Erythrocyte Sedimentation Rate 42 mm/hr (0-15)
[2018-08-26] MEDS ORDERED: SODIUM CHLORIDE 0.9% 1,000 ML IV ONE (06:52)
[2018-08-26] MEDS ORDERED: HYDROmorphone 4 MG TABLET PO STA (07:24)
[2018-08-26] MEDS ORDERED: VANCOMYCIN IV PER PHARMACY 1 EACH MISC MISCELLANE PRN (07:35)
[2018-08-26] MEDS ORDERED: VANCOMYCIN 1,750 MG in SODIUM CHLORIDE 0.9% 500 ML 500 ML IVPB STA (07:38)
--- NOTE | 2018-08-26 07:52 | ED ---
Skin/Abscess/FB HPI - General Chief complaint: Skin/Abscess/Foreign Body Stated complaint: Cellulitits Time Seen by Provider: 08/26/18 05:18 Source: EMS Mode of arrival: EMS Limitations: no limitations - History of Present Illness Initial comments: This patient is a 63-year-old man who presents to be evaluated for right lower extremity pain. The patient indicates that the pain is at the lower portion of the leg basically from just proximal to the ankle and including the ankle and foot. The patient states that he had been having these pains going on since Tuesday. The pain was much less intense however. He had seen his physician and they diagnosed with cellulitis. He was given Augmentin to use which she has been taking as prescribed. The patient states that over the course of last night and this morning the pain became much more severe. He has not noted fever or chills. No other systemic symptoms. The patient's history is notable for having had a liver transplant at [facility]. He receives his liver care through that system. MD complaint: rash -: days(s) Tetanus Up to Date: yes Location: LLE, RLE Severity: severe Quality: aching Consistency: constant Improves with: none Worsens with: none Context: none Associated symptoms: denies other symptoms Treatments Prior to Arrival: antibiotic - Related Data Home Medications Medication Instructions Recorded Confirmed Entecavir [Baraclude] 0.5 mg PO Q48H 03/10/14 08/26/18 Tamsulosin HCl [Flomax] 0.4 mg PO HS 04/14/15 08/26/18 Atorvastatin [Lipitor] 10 mg PO DAILY 04/16/17 08/26/18 HYDROmorphone [Dilaudid] 2 mg PO TID 11/18/17 08/26/18 [place]-3 Fatty Acids/Fish Oil [Fish 1 cap PO DAILY 11/18/17 08/26/18 Oil 1,000 mg Softgel] Omeprazole [PriLOSEC] 20 mg PO DAILY 11/18/17 08/26/18 Aspirin EC [Ecotrin] 325 mg PO DAILY 06/14/18 08/26/18 Insulin Aspart [NovoLOG 15 unit SQ AC-TID 06/14/18 08/26/18 (formulary)] Insulin Glargine,Hum.rec.anlog 30 unit SQ HS 06/14/18 08/26/18 [Basagljuliette Grossmanpen U-100] Tacrolimus [Prograf] 2 mg PO BID@0900,2100 06/14/18 08/26/18 Tacrolimus [Prograf] 5 mg PO BID@0900,2100 06/14/18 08/26/18 Ursodiol [Actigall] 600 mg PO BID 06/14/18 08/26/18 Vortioxetine Hydrobromide 5 mg PO BID 08/22/18 08/26/18 [Trintellix] Amoxicillin/Potassium Clav 1 tab PO Q12HR 08/26/18 08/26/18 [Augmentin 875-125 Tablet] Furosemide [Lasix] 40 mg PO DAILY 08/26/18 08/26/18 Pregabalin [Lyrica] 75 mg PO BID 08/26/18 08/26/18 Allergies Allergy/AdvReac Type Severity Reaction Status Date / Time No Known Allergies Allergy Verified 08/26/18 07:53 Review of Systems ROS Statement: Those systems with pertinent positive or pertinent negative responses have been documented in the HPI. ROS Other: All systems not noted in ROS Statement are negative. Constitutional: Denies: fever, chills, weakness Respiratory: Denies: cough, dyspnea Cardiovascular: Reports: edema. Denies: chest pain, palpitations Gastrointestinal: Denies: abdominal pain, vomiting, diarrhea Genitourinary: Denies: dysuria, hematuria Musculoskeletal: Reports: as per HPI, arthralgia. Denies: back pain Skin: Reports: change in color. Denies: rash, lesions Neurological: Denies: headache, weakness, numbness Past Medical History Past Medical History: CVA/TIA, Diabetes Mellitus, Fibromyalgia, Hyperlipidemia, Hypertension, Liver Disease Additional Past Medical History / Comment(s): neck/back pain, diet controlled dm neuropathy, hep B, [place], "non alcoholic"cirrhosis of liver. 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, ear surgery as a child, cataracts Past Anesthesia/Blood Transfusion Reactions: No Reported Reaction Additional Past Anesthesia/Blood Transfusion Reaction / Comment(s): past blood trnsfusions- no reacation Past Psychological History: No Psychological Hx Reported Smoking Status: Former smoker Past Alcohol Use History: None Reported Past Drug Use History: None Reported - Past Family History Father Family Medical History: Liver Disease Mother Family Medical History: Congestive Heart Failure (CHF) Additional Family Medical History / Comment(s): Patient lives with mother and sister and familymembers provide care to both. General Exam Limitations: no limitations General appearance: alert, in distress (Shouldn't does appear to be having moderate discomfort of the right leg) Head exam: Present: atraumatic, normocephalic Eye exam: Present: normal appearance. Absent: scleral icterus, conjunctival injection Respiratory exam: Present: normal lung sounds bilaterally. Absent: respiratory distress, wheezes, rales, rhonchi, stridor Cardiovascular Exam: Present: regular rate, normal rhythm, normal heart sounds. Absent: systolic murmur, diastolic murmur, rubs, gallop GI/Abdominal exam: Present: soft. Absent: distended, tenderness, guarding, rebound, mass Extremities exam: Present: tenderness, normal capillary refill, pedal edema, other (Patient has erythema, warmth, circumferentially just proximal to the right ankle. There is tenderness to palpation and with range of motion. Pulses are intact. There is good capillary refill. There is trace edema bilaterally.). Absent: full ROM Back exam: Present: normal inspection. Absent: CVA tenderness (R), CVA tenderness (L) Neurological exam: Present: alert. Absent: motor sensory deficit Skin exam: Present: warm, dry, intact, erythema (And warmth at the right ankle, consistent with cellulitis.). Absent: rash Course Vital Signs 08/26/18 08/26/18 08/26/18 04:59 07:00 08:00 Temperature 97.7 F Pulse Rate 86 98 97 Respiratory 18 20 20 Rate Blood Pressure 148/61 129/67 131/45 O2 Sat by Pulse 98 95 96 Oximetry 08/26/18 08/26/18 08:11 09:00 Temperature 98.5 F 98.5 F Pulse Rate 89 Respiratory 20 Rate Blood Pressure 151/66 O2 Sat by Pulse 97 Oximetry Medical Decision Making - Medical Decision Making Patient is 63-year-old man status post liver transplant. He is being treated as an outpatient for cellulitis with Augmentin and appears to be worsening despite therapy. Discussed admitting the patient for further treatment and given his liver transplant like to maintain continuity of care. We discussed case with [facility] who will accept patient for transfer. - Lab Data Result diagrams: 08/26/18 05:30 08/26/18 05:30 Lab Results 08/26/18 08/26/18 08/26/18 Range/Units 05:30 05:30 05:30 WBC 3.6 L (3.8-10.6) k/uL RBC 2.64 L (4.30-5.90) m/uL Hgb 7.7 L (13.0-17.5) gm/dL Hct 22.0 L (39.0-53.0) % MCV 83.2 (80.0-100.0) fL MCH 29.1 (25.0-35.0) pg MCHC 35.0 (31.0-37.0) g/dL RDW 21.4 H (11.5-15.5) % Plt Count 65 L (150-450) k/uL Neutrophils % 70 % Lymphocytes % 15 % Monocytes % 9 % Eosinophils % 1 % Basophils % 1 % Neutrophils # 2.5 (1.3-7.7) k/uL Lymphocytes # 0.5 L (1.0-4.8) k/uL Monocytes # 0.3 (0-1.0) k/uL Eosinophils # 0.0 (0-0.7) k/uL Basophils # 0.0 (0-0.2) k/uL Manual Slide Review Performed Polychromasia Present Hypochromasia Slight Hyperchromasia Slight Poikilocytosis Marked Anisocytosis Moderate Microcytosis Slight ESR 42 H (0-15) mm/hr D-Dimer 0.84 H (<0.60) mg/L FEU Sodium 138 (137-145) mmol/L Potassium 4.2 (3.5-5.1) mmol/L Chloride 106 (98-107) mmol/L Carbon Dioxide 24 (22-30) mmol/L Anion Gap 8 mmol/L BUN 42 H (9-20) mg/dL Creatinine 1.99 H (0.66-1.25) mg/dL Est GFR (CKD-EPI)AfAm 40 (>60 ml/min/1.73 sqM) Est GFR (CKD-EPI)NonAf 35 (>60 ml/min/1.73 sqM) Glucose 153 H (74-99) mg/dL Calcium 8.6 (8.4-10.2) mg/dL Total Bilirubin 3.4 H (0.2-1.3) mg/dL AST 12 L (17-59) U/L ALT 23 (21-72) U/L Alkaline Phosphatase 37 L (38-126) U/L Total Protein 6.0 L (6.3-8.2) g/dL Albumin 3.6 (3.5-5.0) g/dL Disposition Clinical Impression: Cellulitis Disposition: OTHER INSTITUTION NOT DEFINED Condition: Fair Is patient prescribed a controlled substance at d/c from ED?: No Referrals: Ivan Merchant DO [Primary Care Provider] - 1-2 days - Out of Hospital Transfer - Req. Specs Out of Hospital Transfer - Requested Specifics: Other Emergency Center ([facility])
[2018-08-26 08:11] VITALS: RESP 20
[2018-08-26 08:16] VITALS: TEMP 98.5
[2018-08-26 09:06] VITALS: BP 151/66; PULSE 89
[2018-08-27] MEDS ORDERED: VANCOMYCIN 1,750 MG in SODIUM CHLORIDE 0.9% 500 ML 500 ML IVPB SCH (06:00)
== END 2018-08-26 09:10 | disposition short-term general hospital (02) ==
LOC: EC 04:57
DX: L03.115 Cellulitis of right lower limb (principal); R60.0 Localized edema; E78.5 Hyperlipidemia, unspecified; I10 Essential (primary) hypertension; E11.40 Type 2 diabetes mellitus with diabetic neuropathy, unspecified; M79.7 Fibromyalgia; B19.10 Unspecified viral hepatitis B without hepatic coma; H91.90 Unspecified hearing loss, unspecified ear; M19.90 Unspecified osteoarthritis, unspecified site; Z87.891 Personal history of nicotine dependence; Z79.4 Long term (current) use of insulin; Z79.52 Long term (current) use of systemic steroids; Z79.82 Long term (current) use of aspirin; Z79.891 Long term (current) use of opiate analgesic; Z79.899 Other long term (current) drug therapy; Z83.79 Family history of other diseases of the digestive system; Z94.4 Liver transplant status
CPT/HCPCS: 36415; 85379; 80053; 85652; 85025; 99284; 96365; 96375; 96376 ×2; 96361; J3370; J1170

== ENCOUNTER → 2018-11-06 | Outpatient (CLI) | payer OTHER ==
[2018-11-06 10:35] LABS: Anisocytosis Moderate; Basophils % (A) 0 %; Eosinophils % (A) 1 %; HCT 28.3 % (39.0-53.0); Hyperchromasia Slight; Hypochromasia Moderate; Lymphocytes # (A) 0.7 k/uL (1.0-4.8); Lymphocytes % (A) 23 %; MCH 26.8 pg (25.0-35.0); MCHC 32.7 g/dL (31.0-37.0); MCV 81.9 fL (80.0-100.0); Mean Platelet Volume 8.4; Microcytosis Moderate; Monocytes # (A) 0.2 k/uL (0-1.0); Monocytes % (A) 6 %; Neutrophils # (A) 2.2 k/uL (1.3-7.7); Neutrophils % (A) 67 %; Poikilocytosis Marked; RBC 3.45 m/uL (4.30-5.90); RDW 23.8 % (11.5-15.5); WBC 3.2 k/uL (3.8-10.6)
[2018-11-06 10:41] LABS: HGB 9.3 gm/dL (13.0-17.5)
[2018-11-06 12:19] LABS: Platelet Count 73 k/uL (150-450)
[2018-11-06 17:38] LABS: Iron Saturation 25.12 (15.00-50.00)
[2018-11-06 17:53] LABS: Alpha Fetoprotein, Tumor Mkr <2.5 ng/mL (0.0-7.9)
[2018-11-06 18:07] LABS: ALT <8 U/L (10-49); AST 12 U/L (14-35); Albumin/Globulin Ratio 2.38 (1.60-3.17); Alkaline Phosphatase 50 U/L (41-126); Calcium 8.6 mg/dL (8.7-10.3); Carbon Dioxide 27.3 mmol/L (21.6-31.8); Chloride 111 mmol/L (96-109); Cholesterol 85 mg/dL (0-200); Globulin 1.6 g/dL (1.6-3.3); Glucose 112 mg/dL (70-110); LDL Cholesterol,Calculated 31.4 mg/dL (0.0-131.0); Magnesium 1.8 mg/dL (1.5-2.4); Potassium 3.9 mmol/L (3.5-5.5); Sodium 146 mmol/L (135-145); Total Bilirubin 2.6 mg/dL (0.3-1.2); Total Protein 5.4 g/dL (6.2-8.2); Uric Acid 9.1 mg/dL (3.7-8.7)
[2018-11-07 09:32] LABS: Tacrolimus (FK506) 3.1 ng/mL (5.0-20.0)
[2018-11-08 13:05] LABS: Hepatitis B Virus DNA Not detected (Not detected); Hepatitis B Virus DNA, Quant <10 IU/mL (<10); Log HBV IU/mL <1.00 (<1.00)
== END ==
LOC: LABWHC1 08:37
DX: M1A.3790 Chronic gout due to renal impairment, unspecified ankle and foot, without tophus (tophi) (principal); N18.3 Chronic kidney disease, stage 3 (moderate); D63.1 Anemia in chronic kidney disease
CPT/HCPCS: 36415; 80048; 80061; 80076; 80169; 80197; 82105; 82728; 83540; 83550; 83735; 84550; 85025; 87340; 87497; 87517

== ENCOUNTER → 2018-11-14 | Outpatient (CLI) | payer OTHER ==
--- NOTE | 2018-11-15 07:35 | US ---
EXAMINATION TYPE: US kidneys/renal and bladder DATE OF EXAM: 11/14/2018 COMPARISON: 03/10/2014 CLINICAL HISTORY: N18.3 Stage 3 CKD. EXAM MEASUREMENTS: Right Kidney: 9.4 x 4.6 x 4.4 cm Left Kidney: 10.0 x 4.0 x 5.1 cm Right Kidney: at least 3 echogenic structures near the area of pyramids with shadowing relating to ca lculi measuring up to 4 mm. There is cortical renal thinning and diminished cortical medullary differ entiation. Left Kidney: inferior pole slightly obscured by overlying bowel gas. There is cortical thinning and d iminished cortical medullary differentiation. Bladder: wnl Incidental finding of splenomegaly. The spleen measures at least 19.3 cm. There is no evidence for hydronephrosis at this point in time. The urinary bladder is anechoic. Bila teral ureteral jets are seen. Incidentally noted sonographic sweat sign of renal failure. IMPRESSION: Nonobstructing right renal calculi, sonographic evidence of medical renal disease, and sonographic sw eat sign seen in renal failure. No hydronephrosis.
== END | disposition home or self-care (01) ==
LOC: RADUSWWP 15:39
DX: N20.0 Calculus of kidney (principal); N18.3 Chronic kidney disease, stage 3 (moderate); I12.9 Hypertensive chronic kidney disease with stage 1 through stage 4 chronic kidney disease, or unspecified chronic kidney disease
CPT/HCPCS: 76770

== ENCOUNTER 2018-12-05 14:39 | Inpatient (IN) | payer OTHER ==
[2018-12-05] MEDS ORDERED: SODIUM CHLORIDE 0.9% 1,000 ML IV STA (15:45)
--- NOTE | 2018-12-05 15:47 | ED ---
Extremity Problem HPI - General Chief complaint: Extremity Problem,Nontraumatic Stated complaint: Ankle,foot & leg pain, possible blood clot Time Seen by Provider: 12/05/18 15:42 Source: patient, RN notes reviewed, old records reviewed Mode of arrival: ambulatory Limitations: no limitations - History of Present Illness Initial comments: This is a 62-year-old male the ER for evaluation. Patient resents with severe right lower Shorty pain and swelling, symptoms for 4 months. Patient is seen rheumatology, pain control in regards to right lower extremity edema, patient also going to rehabilitation with no improvement. Patient is complaining of severe right lower Shorty pain. Worsening than normal. He does admit to redness and erythema of the right lower extremity. No trauma. Patient at one time was told that he does have gout. MD Complaint: extremity pain, extremity swelling, joint swelling, joint pain -: month(s) Location: right, lower extremity History of Same: Yes -: Yes myalgia, Yes arthralgia Radiation: proximal Severity scale (1-10): 10 Quality: constant Improves with: nothing Worsens with: weight bearing, walking - Related Data Home Medications Medication Instructions Recorded Confirmed Entecavir [Baraclude] 0.5 mg PO Q48H 03/10/14 08/26/18 Tamsulosin HCl [Flomax] 0.4 mg PO HS 04/14/15 08/26/18 Atorvastatin [Lipitor] 10 mg PO DAILY 04/16/17 08/26/18 HYDROmorphone [Dilaudid] 2 mg PO TID 11/18/17 08/26/18 [place]-3 Fatty Acids/Fish Oil [Fish 1 cap PO DAILY 11/18/17 08/26/18 Oil 1,000 mg Softgel] Omeprazole [PriLOSEC] 20 mg PO DAILY 11/18/17 08/26/18 Aspirin EC [Ecotrin] 325 mg PO DAILY 06/14/18 08/26/18 INSULIN ASPART (NovoLOG) [NovoLOG 15 unit SQ AC-TID 06/14/18 08/26/18 (formulary)] Insulin Glargine,Hum.rec.anlog 30 unit SQ HS 06/14/18 08/26/18 [Basagljuliette Grossmanpen U-100] Tacrolimus [Prograf] 2 mg PO BID@0900,2100 06/14/18 08/26/18 Tacrolimus [Prograf] 5 mg PO BID@0900,2100 06/14/18 08/26/18 Ursodiol [Actigall] 600 mg PO BID 06/14/18 08/26/18 Vortioxetine Hydrobromide 5 mg PO BID 08/22/18 08/26/18 [Trintellix] Amoxicillin/Potassium Clav 1 tab PO Q12HR 08/26/18 08/26/18 [Augmentin 875-125 Tablet] Furosemide [Lasix] 40 mg PO DAILY 08/26/18 08/26/18 Pregabalin [Lyrica] 75 mg PO BID 08/26/18 08/26/18 Allergies Allergy/AdvReac Type Severity Reaction Status Date / Time No Known Allergies Allergy Verified 12/05/18 14:56 Review of Systems ROS Statement: Those systems with pertinent positive or pertinent negative responses have been documented in the HPI. ROS Other: All systems not noted in ROS Statement are negative. Past Medical History Past Medical History: CVA/TIA, Diabetes Mellitus, Fibromyalgia, Hyperlipidemia, Hypertension, Liver Disease Additional Past Medical History / Comment(s): neck/back pain, diet controlled dm neuropathy, hep B, unga, "non alcoholic"cirrhosis of liver. 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, ear surgery as a child, cataracts Past Anesthesia/Blood Transfusion Reactions: No Reported Reaction Additional Past Anesthesia/Blood Transfusion Reaction / Comment(s): past blood trnsfusions- no reacation Past Psychological History: No Psychological Hx Reported Smoking Status: Former smoker Past Alcohol Use History: None Reported Past Drug Use History: None Reported - Past Family History Father Family Medical History: Liver Disease Mother Family Medical History: Congestive Heart Failure (CHF) Additional Family Medical History / Comment(s): Patient lives with mother and sister and familymembers provide care to both. General Exam - General Exam Comments Initial Comments: Significant right lower extremity edema erythema pain tenderness, significant line demarcation just underneath. The knee Limitations: no limitations General appearance: alert, in no apparent distress Head exam: Present: atraumatic, normocephalic, normal inspection Eye exam: Present: normal appearance, PERRL, EOMI. Absent: scleral icterus, conjunctival injection, periorbital swelling ENT exam: Present: normal exam, mucous membranes moist Neck exam: Present: normal inspection. Absent: tenderness, meningismus, lymphadenopathy Respiratory exam: Present: normal lung sounds bilaterally. Absent: respiratory distress, wheezes, rales, rhonchi, stridor Cardiovascular Exam: Present: regular rate, normal rhythm, normal heart sounds. Absent: systolic murmur, diastolic murmur, rubs, gallop, clicks GI/Abdominal exam: Present: soft, normal bowel sounds. Absent: distended, tenderness, guarding, rebound, rigid Extremities exam: Present: normal inspection, full ROM, normal capillary refill. Absent: tenderness, pedal edema, joint swelling, calf tenderness Back exam: Present: normal inspection Neurological exam: Present: alert, oriented X3, CN II-XII intact Psychiatric exam: Present: normal affect, normal mood Skin exam: Present: warm, dry, intact, normal color. Absent: rash Course Vital Signs 12/05/18 14:53 Temperature 97.5 F L Pulse Rate 80 Respiratory 20 Rate Blood Pressure 132/63 O2 Sat by Pulse 99 Oximetry Medical Decision Making - Medical Decision Making 60 female the ER for evaluation, will admit for IV antibiotics secondary to likely cellulitis of right lower extremity. Unable to do CAT scan of right lower extremity secondary to kidney function. Ultrasound is negative for DVT - Lab Data Result diagrams: 12/05/18 16:10 12/05/18 16:10 Lab Results 12/05/18 12/05/18 12/05/18 Range/Units 16:10 16:10 16:10 WBC 4.3 (3.8-10.6) k/uL RBC 3.09 L (4.30-5.90) m/uL Hgb 8.2 L (13.0-17.5) gm/dL Hct 24.3 L (39.0-53.0) % MCV 78.7 L (80.0-100.0) fL MCH 26.5 (25.0-35.0) pg MCHC 33.6 (31.0-37.0) g/dL RDW 22.2 H (11.5-15.5) % Plt Count 86 L (150-450) k/uL Neutrophils % 75 % Lymphocytes % 15 % Monocytes % 7 % Eosinophils % 0 % Basophils % 0 % Neutrophils # 3.2 (1.3-7.7) k/uL Lymphocytes # 0.6 L (1.0-4.8) k/uL Monocytes # 0.3 (0-1.0) k/uL Eosinophils # 0.0 (0-0.7) k/uL Basophils # 0.0 (0-0.2) k/uL Hypochromasia Moderate Hyperchromasia Moderate Poikilocytosis Marked Anisocytosis Moderate Microcytosis Moderate Sodium 139 (137-145) mmol/L Potassium 5.0 (3.5-5.1) mmol/L Chloride 104 (98-107) mmol/L Carbon Dioxide 26 (22-30) mmol/L Anion Gap 9 mmol/L BUN 31 H (9-20) mg/dL Creatinine 1.86 H (0.66-1.25) mg/dL Est GFR (CKD-EPI)AfAm 44 (>60 ml/min/1.73 sqM) Est GFR (CKD-EPI)NonAf 38 (>60 ml/min/1.73 sqM) Glucose 115 H (74-99) mg/dL Uric Acid 8.5 (3.5-8.5) mg/dL Calcium 8.9 (8.4-10.2) mg/dL Phosphorus 3.4 (2.5-4.5) mg/dL Magnesium 1.9 (1.6-2.3) mg/dL Total Bilirubin 2.2 H (0.2-1.3) mg/dL AST 13 L (17-59) U/L ALT 14 L (21-72) U/L Alkaline Phosphatase 52 (38-126) U/L Troponin I (0.000-0.034) ng/mL NT-Pro-B Natriuret Pep 1040 pg/mL Total Protein 6.3 (6.3-8.2) g/dL Albumin 3.9 (3.5-5.0) g/dL 12/05/18 Range/Units 16:10 WBC (3.8-10.6) k/uL RBC (4.30-5.90) m/uL Hgb (13.0-17.5) gm/dL Hct (39.0-53.0) % MCV (80.0-100.0) fL MCH (25.0-35.0) pg MCHC (31.0-37.0) g/dL RDW (11.5-15.5) % Plt Count (150-450) k/uL Neutrophils % % Lymphocytes % % Monocytes % % Eosinophils % % Basophils % % Neutrophils # (1.3-7.7) k/uL Lymphocytes # (1.0-4.8) k/uL Monocytes # (0-1.0) k/uL Eosinophils # (0-0.7) k/uL Basophils # (0-0.2) k/uL Hypochromasia Hyperchromasia Poikilocytosis Anisocytosis Microcytosis Sodium (137-145) mmol/L Potassium (3.5-5.1) mmol/L Chloride (98-107) mmol/L Carbon Dioxide (22-30) mmol/L Anion Gap mmol/L BUN (9-20) mg/dL Creatinine (0.66-1.25) mg/dL Est GFR (CKD-EPI)AfAm (>60 ml/min/1.73 sqM) Est GFR (CKD-EPI)NonAf (>60 ml/min/1.73 sqM) Glucose (74-99) mg/dL Uric Acid (3.5-8.5) mg/dL Calcium (8.4-10.2) mg/dL Phosphorus (2.5-4.5) mg/dL Magnesium (1.6-2.3) mg/dL Total Bilirubin (0.2-1.3) mg/dL AST (17-59) U/L ALT (21-72) U/L Alkaline Phosphatase (38-126) U/L Troponin I <0.012 (0.000-0.034) ng/mL NT-Pro-B Natriuret Pep pg/mL Total Protein (6.3-8.2) g/dL Albumin (3.5-5.0) g/dL - EKG Data -: EKG Interpreted by Me (EKG shows sinus rhythm rate of 77, MN 1:30, QRS 90, QTc 408) - Radiology Data Radiology results: report reviewed (Ultrasound right lower extremity negative for DVT), image reviewed Disposition Clinical Impression: Cellulitis, Cellulitis of right lower extremity, Failure of outpatient treatment Disposition: ADMITTED IP TO THIS HOSP Condition: Good Is patient prescribed a controlled substance at d/c from ED?: No Referrals: Ivan Merchant DO [Primary Care Provider] - 1-2 days
[2018-12-05 16:34] LABS: Anisocytosis Moderate; Basophils % (A) 0 %; Eosinophils % (A) 0 %; HCT 24.3 % (39.0-53.0); HGB 8.2 gm/dL (13.0-17.5); Hyperchromasia Moderate; Hypochromasia Moderate; Lymphocytes # (A) 0.6 k/uL (1.0-4.8); Lymphocytes % (A) 15 %; MCH 26.5 pg (25.0-35.0); MCHC 33.6 g/dL (31.0-37.0); MCV 78.7 fL (80.0-100.0); Mean Platelet Volume 9.7; Microcytosis Moderate; Monocytes # (A) 0.3 k/uL (0-1.0); Monocytes % (A) 7 %; Neutrophils # (A) 3.2 k/uL (1.3-7.7); Neutrophils % (A) 75 %; Poikilocytosis Marked; RBC 3.09 m/uL (4.30-5.90); RDW 22.2 % (11.5-15.5); WBC 4.3 k/uL (3.8-10.6)
[2018-12-05 16:35] LABS: Albumin 3.9 g/dL (3.5-5.0); Calcium 8.9 mg/dL (8.4-10.2); Magnesium 1.9 mg/dL (1.6-2.3); Phosphorus 3.4 mg/dL (2.5-4.5); Total Bilirubin 2.2 mg/dL (0.2-1.3); Total Protein 6.3 g/dL (6.3-8.2)
[2018-12-05 16:38] LABS: Platelet Count 86 k/uL (150-450)
--- NOTE | 2018-12-05 16:53 | US ---
EXAMINATION TYPE: US venous doppler duplex LE RT DATE OF EXAM: 12/05/2018 3:45 PM COMPARISON: US 2016 CLINICAL HISTORY: Pain. Right leg pain and swelling SIDE PERFORMED: Right TECHNIQUE: The lower extremity deep venous system is examined utilizing real time linear array sonog misty with graded compression, doppler sonography and color-flow sonography. VESSELS IMAGED: External Iliac Vein (EIV) Common Femoral Vein Deep Femoral Vein Greater Saphenous Vein * Femoral Vein Popliteal Vein Small Saphenous Vein * Proximal Calf Veins (* superficial vessels) Right Leg: Appears negative for DVT IMPRESSION: No evidence of deep venous thrombosis in the right leg.
[2018-12-05] MEDS ORDERED: HYDROmorphone 1 MG/ML 1 ML SYRINGE IVP PRN (17:17)
[2018-12-05] MEDS ORDERED: VANCOMYCIN IV PER PHARMACY 1 EACH MISC MISCELLANE PRN (17:17)
[2018-12-05] MEDS ORDERED: HYDROmorphone 1 MG/ML 1 ML SYRINGE IVP STA (17:17)
[2018-12-05 17:27] LABS: Uric Acid 8.5 mg/dL (3.5-8.5)
[2018-12-05] MEDS ORDERED: VANCOMYCIN 1,750 MG in SODIUM CHLORIDE 0.9% 500 ML 500 ML IVPB STA (18:43)
[2018-12-05] MEDS ORDERED: HYDROmorphone 1 MG/ML 1 ML SYRINGE IM PRN (22:51)
[2018-12-05] MEDS ORDERED: INSULIN DETEMIR (LEVEMIR) 100 UNIT/ML SYR SQ SCH (23:00)
[2018-12-05] MEDS ORDERED: PREGABALIN 75 MG CAP ONE (23:44)
[2018-12-05] MEDS ORDERED: HYDROcodone/APAP 7.5-325MG 1 EACH TAB ONE (23:45)
[2018-12-06] MEDS ORDERED: HYDROcodone/APAP 7.5-325MG 1 EACH TAB ONE (00:03)
[2018-12-06] MEDS ORDERED: TAMSULOSIN 0.4 MG CAP.ER.24H PO ONE (00:03)
[2018-12-06] MEDS ORDERED: METHOCARBAMOL 500 MG TAB ONE (00:03)
[2018-12-06] MEDS ORDERED: TACROLIMUS 1 MG CAP ONE (00:03)
[2018-12-06] MEDS ORDERED: INSULIN DETEMIR (LEVEMIR) 100 UNIT/ML SYR SQ ONE (00:03)
[2018-12-06] MEDS ORDERED: PREGABALIN 75 MG CAP ONE (00:03)
[2018-12-06] MEDS ORDERED: HYDROmorphone 1 MG/ML 1 ML SYRINGE ONE (00:03)
[2018-12-06] MEDS ORDERED: URSODIOL 300 MG CAP ONE (00:03)
[2018-12-06 04:09] LABS: Glucose,Whole Blood 196 mg/dL (75-99)
[2018-12-06 04:10] LABS: Glucose,Whole Blood 117 mg/dL (75-99)
[2018-12-06] MEDS: HYDROcodone/APAP 7.5-325MG 1 EACH TAB PO SCH ×3 (05:13→20:39)
[2018-12-06] MEDS: EVEROLIMUS PO SCH ×3 (05:13→20:41)
[2018-12-06] MEDS: TACROLIMUS 1 MG CAP PO SCH ×3 (05:13→20:40)
[2018-12-06] MEDS: URSODIOL 300 MG CAP PO SCH ×3 (05:13→20:39)
[2018-12-06] MEDS: METHOCARBAMOL 500 MG TAB PO SCH ×3 (05:13→20:39)
[2018-12-06] MEDS: TAMSULOSIN 0.4 MG CAP.ER.24H PO SCH ×2 (05:13→20:39)
[2018-12-06] MEDS: PREGABALIN 75 MG CAP PO SCH ×3 (05:13→20:39)
[2018-12-06] MEDS ORDERED: ENTECAVIR 0.5 MG PO SCH (05:30)
[2018-12-06] MEDS ORDERED: INSULIN DETEMIR (LEVEMIR) 100 UNIT/ML SYR SQ SCH (06:26)
[2018-12-06 07:05] LABS: Glucose,Whole Blood 113 mg/dL (75-99)
[2018-12-06] MEDS: INSULIN ASPART (NovoLOG) 100 UNIT/ML VIAL SQ SCH ×4 (07:58→20:41)
[2018-12-06] MEDS: HYDROmorphone 1 MG/ML 1 ML SYRINGE IVP PRN ×4 (08:45→19:51)
[2018-12-06] MEDS: ASPIRIN 325 MG TAB PO SCH (08:46)
[2018-12-06] MEDS: ATORVASTATIN 20 MG TAB PO SCH (08:46)
[2018-12-06] MEDS: PANTOPRAZOLE 40 MG TABLET PO SCH (08:46)
[2018-12-06] MEDS: ALLOPURINOL 100 MG TAB PO SCH (08:46)
[2018-12-06] MEDS: FUROSEMIDE 40 MG TAB PO SCH (08:46)
[2018-12-06] MEDS: CHOLECALCIFEROL 400 UNIT TAB PO SCH (08:46)
[2018-12-06] MEDS: predniSONE 10 MG TAB PO SCH (08:47)
[2018-12-06 08:56] LABS: Albumin 3.3 g/dL (3.5-5.0); Calcium 8.4 mg/dL (8.4-10.2); Potassium 4.7 mmol/L (3.5-5.1); Total Bilirubin 1.4 mg/dL (0.2-1.3); Total Protein 5.6 g/dL (6.3-8.2)
[2018-12-06] MEDS ORDERED: NON-FORMULARY DRUG (Omega-3 Fatty Acids/Fish Oil [Fish Oil 1,000 Mg Softgel] 1 EACH) PO SCH (09:00)
[2018-12-06] MEDS ORDERED: VORTIOXETINE HYDROBROMIDE 5 MG PO SCH (09:00)
[2018-12-06 09:05] LABS: Anisocytosis Moderate; Basophils % (A) 1 %; Eosinophils % (A) 2 %; HCT 23.3 % (39.0-53.0); HGB 7.5 gm/dL (13.0-17.5); Hypochromasia Marked; Lymphocytes # (A) 0.6 k/uL (1.0-4.8); Lymphocytes % (A) 25 %; MCH 26.3 pg (25.0-35.0); MCHC 32.3 g/dL (31.0-37.0); MCV 81.6 fL (80.0-100.0); Mean Platelet Volume 8.3; Microcytosis Slight; Monocytes # (A) 0.3 k/uL (0-1.0); Monocytes % (A) 11 %; Neutrophils # (A) 1.5 k/uL (1.3-7.7); Neutrophils % (A) 58 %; Poikilocytosis Marked; RBC 2.86 m/uL (4.30-5.90); RDW 22.3 % (11.5-15.5); WBC 2.5 k/uL (3.8-10.6)
[2018-12-06 09:06] LABS: Platelet Count 74 k/uL (150-450)
--- NOTE | 2018-12-06 11:09 | XR ---
EXAMINATION TYPE: XR tibia fibula RT DATE OF EXAM: 12/06/2018 CLINICAL HISTORY: Right ankle, lower extremity, and foot pain and swelling TECHNIQUE: Two views of the right leg are obtained. COMPARISON: None. FINDINGS: There is no acute fracture or dislocation seen in the right tibia or fibula. The right kn ee joint is aligned however there is minimal medial compartment joint space narrowing of the knee The overlying soft tissue appears unremarkable. Calcifications along the patellar tendon are likely sequ lucy of remote injury/patellar tendinosis. Very small inferior pole patellar osteophyte is seen. IMPRESSION: There is no acute fracture or dislocation seen in the right tibia or fibula.
--- NOTE | 2018-12-06 11:16 | XR ---
EXAMINATION TYPE: XR ankle complete RT, XR foot complete RT DATE OF EXAM: 12/06/2018 CLINICAL HISTORY: Right ankle, lower extremity, and foot pain and swelling TECHNIQUE: Frontal, lateral and oblique images of the brain ankle and foot are obtained. COMPARISON: None. FINDINGS: There is diffuse soft tissue swelling surrounding of the right lower extremity seen depend ently. This is most pronounced over the medial hindfoot. Small vessel atherosclerosis is noted. No blount bcutaneous emphysema or radiopaque foreign body. Small Achilles heel spur is present. Corticated frag ment distal to the medial malleolus is sequela of old injury. Given the overlying soft tissue swellin g deltoid ligament injury is possible and could be evaluated with MRI. Patchy bone mineral density is present throughout and mild osseous demineralization is suspected. There is no acute fracture/disloc ation evident in the right ankle. The ankle mortise appears within normal limits. There is no acute fracture or dislocation evident in the right foot. Mild degenerative changes of the first metatarsal phalangeal joint are seen as opposing surface scler osis. Very minimal degenerative changes of the distal interphalangeal joints and carpometacarpal join ts are also seen. No osseous erosions or periosteal reaction. Small osseous cysts as present of the a nterior distal tibial metaphysis that appears well-circumscribed and benign. IMPRESSION: 1. No x-ray evidence of osteomyelitis of the abdomen patchy bone mineral density throughout, presumab ly related to mild osseous demineralization. No osseous erosions or periosteal reaction. 2. Dependent right lower extremity subcutaneous edema most pronounced just inferior to the medial mal leolus surrounding a well-corticated fragment. Acute on chronic deltoid ligament injury is possible a nd could be evaluated with MRI. 3. No acute fracture or dislocation in the right ankle or foot.
[2018-12-06 12:01] LABS: Glucose,Whole Blood 156 mg/dL (75-99)
[2018-12-06] MEDS: VANCOMYCIN 1,500 MG in SODIUM CHLORIDE 0.9% 250 ML IVPB SCH (12:08)
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
[2018-12-06 15:31] VITALS: BMI 31.6
[2018-12-06 17:15] LABS: Glucose,Whole Blood 217 mg/dL (75-99)
[2018-12-06] MEDS: Vortioxetine Hydrobromide [Trintellix] 10 MG PO SCH (18:00)
--- NOTE | 2018-12-06 18:28 | P.CNOR ---
History of Present Illness - [facility] Consult date: 12/06/18 Consult reason: joint pain History of present illness: Patient is a 63-year-old male who was admitted to [facility] yesterday afternoon with regards to significant swelling and redness involving t he right lower extremity. Patient has been seen by multiple medical specialists at this time. He has a significant medical history, including liver transplant, peripheral vascular disease, diabetic neuropathy, remote history of gout, lower extremity swelling. Patient denies any previous trauma involving the right lower extremity. Patient denies any previous orthopedic surgeon involving the right lower extremity. At bedside today, patient notes most discomfort in the ankle and foot. He stat es the swelling started back in August. Review of Systems Constitutional: Reports as per HPI Past Medical History Past Medical History: CVA/TIA, Diabetes Mellitus, Fibromyalgia, Hyperlipidemia, Hypertension, Liver Disease Additional Past Medical History / Comment(s): neck/back pain,neuropathy, hep B history (had liver transplant and infusion post transplant), redding, "non alcoholic"cirrhosis of liver,past uti, past cataracts(sx), arthrits but not sure what type, CKD stage 3 History of Any Multi-Drug Resistant Organisms: None Reported Past Surgical History: Cholecystectomy, Tonsillectomy Additional Past Surgical History / Comment(s): 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, ear surgery as a child, cataracts, liver transplant at [facility] February 02, 2018 Past Anesthesia/Blood Transfusion Reactions: No Reported Reaction Additional Past Anesthesia/Blood Transfusion Reaction / Comm: past blood trnsfusions- no reacation Past Psychological History: Depression Smoking Status: Former smoker Past Alcohol Use History: None Reported Additional Past Alcohol Use History / Comment(s): started smoking 1971 and quit 2016 smoked 1 ppd Past Drug Use History: None Reported - Past Family History Father Family Medical History: Liver Disease Mother Family Medical History: Congestive Heart Failure (CHF) Additional Family Medical History / Comment(s): DDD, heart stents, Medications and Allergies Home Medications Medication Instructions Recorded Confirmed Type Entecavir [Baraclude] 0.5 mg PO Q48H 03/10/14 12/05/18 History Tamsulosin HCl [Flomax] 0.4 mg PO HS 04/14/15 12/05/18 History INSULIN ASPART (NovoLOG) [NovoLOG 15 unit SQ AC-TID 06/14/18 12/05/18 History (formulary)] Insulin Glargine,Hum.rec.anlog 30 unit SQ HS 06/14/18 12/05/18 History [Basaglar Kwikpen U-100] Tacrolimus [Prograf] 8 mg PO QAM 06/14/18 12/05/18 History Ursodiol [Actigall] 300 mg PO BID 06/14/18 12/05/18 History Pregabalin [Lyrica] 75 mg PO BID 08/26/18 12/05/18 History Aspirin 325 mg PO DAILY 12/05/18 12/05/18 History Atorvastatin [Lipitor] 20 mg PO DAILY 12/05/18 12/05/18 History Cholecalciferol [Vitamin D3] 400 units PO DAILY 12/05/18 12/05/18 History Everolimus [Zortress] 1.5 mg PO BID 12/05/18 12/05/18 History Febuxostat [Uloric] 40 mg PO DAILY 12/05/18 12/05/18 History Febuxostat [Uloric] 40 mg PO DAILY 12/05/18 12/05/18 History Furosemide [Lasix] 40 mg PO DAILY 12/05/18 12/05/18 History HYDROcodone/APAP 7.5-325MG [Hessel 1 tab PO BID 12/05/18 12/05/18 History 7.5-325] Methocarbamol [Robaxin] 500 mg PO BID 12/05/18 12/05/18 History Bell-3 Fatty Acids/Fish Oil [Fish 1 each PO DAILY 12/05/18 12/05/18 History Oil 1,000 mg Softgel] Omeprazole [PriLOSEC] 20 mg PO AC-BRKFST 12/05/18 12/05/18 History Tacrolimus [Prograf] 7 mg PO HS 12/05/18 12/05/18 History Vortioxetine Hydrobromide 5 mg PO DAILY 12/05/18 12/05/18 History [Trintellix] Vortioxetine Hydrobromide 10 mg PO DAILY 12/05/18 12/05/18 History [Trintellix] Allergies Allergy/AdvReac Type Severity Reaction Status Date / Time No Known Allergies Allergy Verified 12/05/18 19:16 Physical Examination Right lower extremity: Obvious soft tissue swelling noted from the mid tibia/fib area to distal foot. No obvious open lesions present. There is some erythema noted in the foot and ankle. Sensory exam to light touch is diminished throughout the plantar aspect of the foot. Skin is warm to touch. Calf is soft, no tenderness with palpation. Patient is tender with palpation throughout the ankle and into the foot, mainly in the areas of soft tissue swelling Results - Labs Labs: Abnormal Lab Results - Last 24 Hours (Table) 12/05/18 12/06/18 12/06/18 Range/Units 22:56 03:39 07:04 WBC (3.8-10.6) k/uL RBC (4.30-5.90) m/uL Hgb (13.0-17.5) gm/dL Hct (39.0-53.0) % RDW (11.5-15.5) % Plt Count (150-450) k/uL Lymphocytes # (1.0-4.8) k/uL ESR (0-15) mm/hr Chloride (98-107) mmol/L BUN (9-20) mg/dL Creatinine (0.66-1.25) mg/dL Glucose (74-99) mg/dL POC Glucose (mg/dL) 196 H 117 H 113 H (75-99) mg/dL Total Bilirubin (0.2-1.3) mg/dL AST (17-59) U/L ALT (21-72) U/L C-Reactive Protein (<10.0) mg/L Total Protein (6.3-8.2) g/dL Albumin (3.5-5.0) g/dL 12/06/18 12/06/18 12/06/18 Range/Units 08:19 08:19 10:30 WBC 2.5 L (3.8-10.6) k/uL RBC 2.86 L (4.30-5.90) m/uL Hgb 7.5 L (13.0-17.5) gm/dL Hct 23.3 L (39.0-53.0) % RDW 22.3 H (11.5-15.5) % Plt Count 74 L (150-450) k/uL Lymphocytes # 0.6 L (1.0-4.8) k/uL ESR 56 H (0-15) mm/hr Chloride 109 H (98-107) mmol/L BUN 30 H (9-20) mg/dL Creatinine 1.51 H (0.66-1.25) mg/dL Glucose 115 H (74-99) mg/dL POC Glucose (mg/dL) (75-99) mg/dL Total Bilirubin 1.4 H (0.2-1.3) mg/dL AST 13 L (17-59) U/L ALT 16 L (21-72) U/L C-Reactive Protein 60.0 H (<10.0) mg/L Total Protein 5.6 L (6.3-8.2) g/dL Albumin 3.3 L (3.5-5.0) g/dL 12/06/18 12/06/18 Range/Units 11:47 17:12 WBC (3.8-10.6) k/uL RBC (4.30-5.90) m/uL Hgb (13.0-17.5) gm/dL Hct (39.0-53.0) % RDW (11.5-15.5) % Plt Count (150-450) k/uL Lymphocytes # (1.0-4.8) k/uL ESR (0-15) mm/hr Chloride (98-107) mmol/L BUN (9-20) mg/dL Creatinine (0.66-1.25) mg/dL Glucose (74-99) mg/dL POC Glucose (mg/dL) 156 H 217 H (75-99) mg/dL Total Bilirubin (0.2-1.3) mg/dL AST (17-59) U/L ALT (21-72) U/L C-Reactive Protein (<10.0) mg/L Total Protein (6.3-8.2) g/dL Albumin (3.5-5.0) g/dL Microbiology - Last 24 Hours (Table) 12/05/18 16:10 Blood Culture - Preliminary Blood No Growth after 24 hours H & H 12/05/18 12/06/18 Range/Units 16:10 08:19 Hgb 8.2 L 7.5 L (13.0-17.5) gm/dL Hct 24.3 L 23.3 L (39.0-53.0) % Result Diagrams: 12/06/18 08:19 12/06/18 08:19 - Diagnostic results Ankle/Foot x-ray: report reviewed, image reviewed Assessment and Plan Plan: Imaging: Multiple images were taken of the right lower extremity, no acute fractures or dislocations are present. Obvious soft tissue swelling is present throughout the lower extremity Assessment: 1. Right lower extremity edema 2. Possible right ankle gouty arthropathy 3. Possible cellulitic component right lower extremity 4. Multiple medical comorbidities Plan: Dr. Helms was available today to examine the patient and discussed treatment options. Uric acid level was drawn today. Recommended icing and elevating at this time. Await MRI evaluation of the lower extremity Other medical secretary recommendations Further recommendations to follow Time with Patient: Less than 30
--- NOTE | 2018-12-06 19:53 | PN ---
PROGRESS NOTE DATE OF SERVICE: 12/06/2018 This 63-year-old gentleman with a past medical history of multiple medical problems including liver transplantation is having significant pain and swelling of the right leg. The patient was admitted for further evaluation and treatment. Initial workup was for gout. The patient was evaluated at this time. Uric acid was found to be 8.5. The patient also had x-rays tibial fibula x-rays today. X-rays of the ankle and foot were also reviewed showed no x-ray evidence of osteomyelitis, but however, some subcutaneous edema was noted. No acute fractures also noted. The patient also complains some fall and some pain in the right low right lower chest area. PAST MEDICAL HISTORY: Reviewed. REVIEW OF SYSTEMS: CARDIOVASCULAR: No angina or palpitations. RESPIRATORY: As mentioned earlier. GI no nausea or vomiting. . No dysuria. Nervous system: No numbness or weakness. CURRENT MEDICATIONS ARE: Reviewed and include: 1. Billings 7.5 b.i.d. p.r.n. 2. Zyloprim 200 mg p.o. daily. 3. Aspirin 320 mg daily. 4. Lipitor 20 mg daily. 5. Clozapine 1 g daily. 6. Vitamin D3 400 units daily. 7. Lasix 40 mg daily. 8. Dilaudid 1 mg q.3 p.r.n. 9. NovoLog scale. 10.Levemir 30 units subcu q.h.s. 11.Robaxin 500 mg p.o. b.i.d. 12.Zortress 1.5 mg p.o. b.i.d. 13.Trintellix 10 mg p.o. daily. 14.Entecavir 0.4 mg q.4h. 15.Protonix 40 mg daily. 16.Prednisone 10 mg daily. 17.Lyrica 75 mg p.o. b.i.d. 18.Prograf 7 mg p.o. q.h.s. and 8 mg q.a.m. 19.Flomax 0.4. 20.Actigall 300 mg p.o. b.i.d. 21.Vancomycin 1.5 q16 hours. PHYSICAL EXAM: Patient is alert, oriented x3. Pulse 71, blood pressure 137/60, respiratory 20, temp 98.2, pulse ox 97% on room air. HEENT: Conjunctivae normal. NECK: No JVD. No carotid bruit. CARDIOVASCULAR: S1, S2 muffled. RESPIRATORY: Breath sounds diminished in the bases. A few scattered rhonchi and crackles. ABDOMEN: Soft, obese. LEGS: Right leg swelling and tenderness extensively present. CENTRAL NERVOUS SYSTEM: Higher functions as mentioned earlier. Moves all four extremities. No focal deficits. LYMPHATICS: No lymph nodes palpable in the neck, axillae or groin. SKIN: No ulcer, rash or bleeding. JOINTS: No active deforming arthropathy. LABS: Reviewed. WBC 2.5, hemoglobin 7.5. Other labs are noted. Cultures are negative so far. ASSESSMENT: 1. Severe pain and swelling of the right leg, rule out osteomyelitis or atypical infection. 2. Rule out degenerative joint disease or gout. 3. Chronic kidney disease stage III. 4. Pancytopenia. 5. History of cerebrovascular accident/transient ischemic attack. 6. Diabetes mellitus type 2. 7. Fibromyalgia. 8. History of hypertension. 9. History of hyperlipidemia. 10.History of chronic liver disease. 11.History of hepatitis B. 12.History of known alcoholic cirrhosis. 13.History of tonsillectomy. 14.History of depression. 15.Remote history of nicotine dependence. 16.FULL CODE. RECOMMENDATIONS AND DISCUSSION: In this 63-year old gentleman who presented with multiple complex medical issues, we will monitor the patient closely, continue the current medications, management and symptomatic treatment. The patient is on empiric antibiotics and we will obtain the cultures and we will also obtain MRI of the leg as recommended. Infectious Disease and orthopedic evaluations. Guarded prognosis because of multiple complex medical issues. Further recommendations to follow. We will resume the home medications. MMODL / IJN: [id number] /
[2018-12-06 20:26] LABS: Glucose,Whole Blood 309 mg/dL (75-99)
--- NOTE | 2018-12-06 20:29 | HP ---
HISTORY AND PHYSICAL DATE OF SERVICE: 12/05/2018 CHIEF COMPLAINT: Right leg pain and swelling. HISTORY OF PRESENT ILLNESS: This 63-year-old gentleman with a past medical history of multiple medical problems, including history of chronic liver disease, history of transplantation, history of hepatitis B as well as non-alcoholic steatosis, history of CVA, TIA, diabetes, hypertension, hyperlipidemia, being followed by Dr. Merchant in the outpatient setting, was having difficulties of the left leg for the past 3 months, according to him. The pain was initially in the ankle and extended to the leg. The patient was also evaluated for gout and was seen by a marine steam fitter helper. Subsequently the patient continues to have pain management. Pain Management sent the patient to [facility] for evaluation for DVT. Patient came to [facility] and was admitted for further evaluation and treatment. There is no history of any fever, rigor or chills. No history of headache, loss of consciousness, seizures at this time. PAST MEDICAL HISTORY: 1. CVA, TIA. 2. Diabetes mellitus. 3. Fibromyalgia. 4. Hypertension. 5. Hyperlipidemia. HOME MEDICATIONS: 1. Vitamin D3 400 units daily. 2. Trintellix 5 mg p.o. daily. 3. Fish oil 1 p.o. daily. 4. Uloric 40 mg p.o. daily. 5. Zortress 1.5 mg p.o. b.i.d. 6. Prilosec 20 mg with breakfast. 7. Lasix 40 mg daily. 8. Lipitor 20 mg daily. 9. Aspirin 325 mg daily. 10.Actigall 300 mg p.o. b.i.d. 11.Flomax 0.4 at bedtime. 12.Prograf 7 mg at bedtime and 8 mg each morning. 13.Lyrica 75 mg p.o. b.i.d. 14.Robaxin 500 mg p.o. b.i.d. 15.Insulin Glargine 30 units subcutaneously at bedtime. 16.NovoLog 15 units subcutaneously t.i.d. 17.Everett 7.5 p.o. b.i.d. 18.Uloric 40 mg p.o. daily. 19.Entecavir 0.5 mg q.48 hours. ALLERGIES: NONE. FAMILY HISTORY: History of liver disease in the family. History of CAD, stents. SOCIAL HISTORY: Previous history of smoking. No history of alcohol intake. No history of substance abuse. REVIEW OF SYSTEMS: ENT: No diminished hearing. No diminished vision. CARDIOVASCULAR SYSTEM: No angina, palpitations. RESPIRATORY SYSTEM: No cough, hemoptysis. GI: No nausea, vomiting. : No dysuria or retention. NERVOUS SYSTEM: No numbness, weakness. ALLERGY/IMMUNOLOGY: No asthma, hayfever. MUSCULOSKELETAL: As mentioned earlier. HEMATOLOGY/ONCOLOGY: No history of anemia. ENDOCRINE: As mentioned earlier. CONSTITUTIONAL: As mentioned earlier. DERMATOLOGY: Negative. RHEUMATOLOGY: Negative. PSYCHIATRY: As mentioned earlier. PHYSICAL EXAMINATION: Patient is alert, oriented x3. Pulse 71, blood pressure 137/63, respiration 20, temperature 98.2, pulse ox 97% on room air. HEENT: Conjunctivae normal. Oral mucosa moist. NECK: No jugular venous distention. No carotid bruit. No lymph node enlargement. CARDIOVASCULAR SYSTEM: S1, S2 muffled. No S3. No S4. RESPIRATORY SYSTEM: Breath sounds diminished at the bases. A few scattered rhonchi and crackles. ABDOMEN: Soft, non-tender. LEGS: Significant swelling and pain of the right leg extending from below the knee to the foot present. Movements of the right foot are painfully limited. Significant skin sensitivity also present. NERVOUS SYSTEM: Higher functions as mentioned earlier. Moves all 4 limbs. Some minimal peripheral neuropathy present. LYMPHATICS: No lymph node palpable in neck, axillae or groin. JOINTS: As mentioned earlier. LABS: WBC 2.5, hemoglobin 7.5, sodium 142, potassium 3.7, creatinine 1.51. Total bilirubin is 1.4. C-reactive protein is 60. Albumin is 3.3. Accu-Cheks noted. ASSESSMENT: 1. Significant right leg pain and swelling; rule out osteomyelitis or arthritis/gout. 2. Increased creatinine with chronic kidney disease, stage III. 3. Pancytopenia etiology. 4. Cerebrovascular accident, transient ischemic attack. 5. Diabetes mellitus, type 2. 6. Fibromyalgia. 7. Hypertension. 8. Hyperlipidemia. 9. History of liver disease. 10.Neck and back pain. 11.History of hepatitis B. 12.History of liver transplantation. 13.History of cholecystectomy. 14.History of tonsillectomy. 15.History of depression. RECOMMENDATIONS AND DISCUSSION: I recommend to continue current medications, continue with the monitoring, symptomatic treatment. Otherwise at this time I would recommend x-rays, CT scan, broad- spectrum IV antibiotics, infectious disease evaluation, gastroenterology evaluation. Repeat labs. Guarded prognosis because of multiple complex medical issues. Further recommendations to follow. A copy of this dictation is being forwarded to Dr. Ivan Merchant, who is the primary physician. MMODL / IJN: [id number] / MTDD
[2018-12-06] MEDS: INSULIN DETEMIR (LEVEMIR) 100 UNIT/ML SYR SQ SCH (20:41)
--- NOTE | 2018-12-06 22:31 | P.CONS ---
History of Present Illness - Reason for Consult Consult date: 12/06/18 Right lower extremity cellulitis Requesting physician: Lesley Garcia - Chief Complaint Right ankle and leg pain worse last few days - History of Present Illness Patient is 63-year-old male with a past medical history significant for chronic hepatitis B status post liver transplant in 2018 on immunosuppressive medication, presenting to the ER with chief complaints of right lower extremity pain and swelling which is most marked at the ankle area the patient's symptom has been chronic going on since family however has been worse for the last few days with significant swelling to the leg especially the ankle area the patient is complaining of sharp excruciating pain in the leg and the ankle area almost in a patient with severe especially when he walks on it the pressure relieved the pain the patient said he was having or redness to the leg as well yesterday which was not appreciated today on evaluation the patient has been complaining of some chills but no high-grade fever has been noticed on presentation to the ER the patient had did have lower extremity doppler that was negative for DVT x-rays did not show any evidence of fracture, the patient has been started on Rocephin and vancomycin and admitted to the hospital infectious disease was consulted for further recommendation for antibiotic therapy Review of Systems CONSTITUTIONAL: Positive for weakness. Some chills but denies high-grade Fever EYES: No complaint. ENT:No complaint. RESPIRATORY: No complaint. CARDIOVASCULAR: No complaint. GENITOURINARY: No complaint. GASTROINTESTINAL: No complaint. MUSCULOSKELETAL: As per history of present illness. INTEGUMENTARY: As per history of present illness. PSYCHOLOGICAL: No complaint. ENDOCRINE: No complaint. NEUROLOGIC: No complaint. 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, ear surgery as a child, cataracts, liver transplant at [facility] February 02, 2018 Past Anesthesia/Blood Transfusion Reactions: No Reported Reaction Additional Past Anesthesia/Blood Transfusion Reaction / Comm: past blood trnsfusions- no reacation Past Psychological History: Depression Smoking Status: Former smoker Past Alcohol Use History: None Reported Additional Past Alcohol Use History / Comment(s): started smoking 1971 and quit 2017 smoked 1 ppd Past Drug Use History: None Reported - Past Family History Father Family Medical History: Liver Disease Mother Family Medical History: Congestive Heart Failure (CHF) Additional Family Medical History / Comment(s): DDD, heart stents, Medications and Allergies Home Medications Medication Instructions Recorded Confirmed Type Entecavir [Baraclude] 0.5 mg PO Q48H 03/10/14 12/05/18 History Tamsulosin HCl [Flomax] 0.4 mg PO HS 04/14/15 12/05/18 History INSULIN ASPART (NovoLOG) [NovoLOG 15 unit SQ AC-TID 06/14/18 12/05/18 History (formulary)] Insulin Glargine,Hum.rec.anlog 30 unit SQ HS 06/14/18 12/05/18 History [Basaglar Kwikpen U-100] Tacrolimus [Prograf] 8 mg PO QAM 06/14/18 12/05/18 History Ursodiol [Actigall] 300 mg PO BID 06/14/18 12/05/18 History Pregabalin [Lyrica] 75 mg PO BID 08/26/18 12/05/18 History Aspirin 325 mg PO DAILY 12/05/18 12/05/18 History Atorvastatin [Lipitor] 20 mg PO DAILY 12/05/18 12/05/18 History Cholecalciferol [Vitamin D3] 400 units PO DAILY 12/05/18 12/05/18 History Everolimus [Zortress] 1.5 mg PO BID 12/05/18 12/05/18 History Febuxostat [Uloric] 40 mg PO DAILY 12/05/18 12/05/18 History Febuxostat [Uloric] 40 mg PO DAILY 12/05/18 12/05/18 History Furosemide [Lasix] 40 mg PO DAILY 12/05/18 12/05/18 History HYDROcodone/APAP 7.5-325MG [Canadian 1 tab PO BID 12/05/18 12/05/18 History 7.5-325] Methocarbamol [Robaxin] 500 mg PO BID 12/05/18 12/05/18 History Molena-3 Fatty Acids/Fish Oil [Fish 1 each PO DAILY 12/05/18 12/05/18 History Oil 1,000 mg Softgel] Omeprazole [PriLOSEC] 20 mg PO AC-BRKFST 12/05/18 12/05/18 History Tacrolimus [Prograf] 7 mg PO HS 12/05/18 12/05/18 History Vortioxetine Hydrobromide 5 mg PO DAILY 12/05/18 12/05/18 History [Trintellix] Vortioxetine Hydrobromide 10 mg PO DAILY 12/05/18 12/05/18 History [Trintellix] Allergies Allergy/AdvReac Type Severity Reaction Status Date / Time No Known Allergies Allergy Verified 12/05/18 19:16 Physical Exam Vitals: Vital Signs Temp Pulse Pulse Resp BP BP Pulse Ox 12/06/18 12:23 98.2 F 71 20 137/63 97 12/06/18 05:54 97.6 F 71 18 134/63 96 12/05/18 21:38 98.4 F 86 18 149/67 98 12/05/18 20:30 84 16 114/51 12/05/18 20:00 77 17 119/50 91 L 12/05/18 19:30 79 16 132/64 91 L 12/05/18 19:00 75 17 109/48 90 L 12/05/18 18:30 78 15 111/52 100 12/05/18 18:01 78 21 111/52 12/05/18 17:30 78 23 109/54 12/05/18 17:00 80 20 127/58 12/05/18 16:30 79 20 121/53 12/05/18 16:18 22 12/05/18 14:53 97.5 F L 80 20 132/63 99 Intake and Output 12/05/18 12/06/18 12/06/18 22:59 06:59 14:59 Intake Total 1340 540 Output Total 2 600 Balance 1338 -60 Intake: Intake, IV Titration 800 Amount Sodium Chloride 0.9% 1, 500 000 ml @ 100 mls/hr IV . Q10H STA Rx#:[id number] Vancomycin 1,500 mg In 250 Sodium Chloride 0.9% 250 ml @ 125 mls/hr IVPB Q16H TER[facility]E Rx#:[id number] cefTRIAXone 1 gm In 50 Sodium Chloride 0.9% 50 ml @ 100 mls/hr IVPB Q24H TERRIE Rx#:[id number] Oral 540 540 Output: Urine 2 600 Other: Voiding Method Urinal Urinal # Voids 2 GENERAL DESCRIPTION: Middle-aged male lying in bed, no distress. No tachypnea or accessory muscle of respiration use. HEENT: Shows Pallor , no scleral icterus. Oral mucous membrane is dry. No pharyngeal erythema or thrush NECK: Trachea central, no thyromegaly. LUNGS: Unlabored breathing. Clear to auscultation anteriorly. No wheeze or crackle. HEART: S1, S2, regular rate and rhythm. No loud murmur ABDOMEN: Soft, no tenderness , guarding or rigidity, no organomegaly EXTREMITIES: Right leg patient did have swelling mostly marked at the ankle area is slightly warm to touch no redness was noticed no open wound or any drainage SKIN: No rash, no masses palpable. NEUROLOGICAL: The patient is awake, alert, oriented x3, mood and affect normal. Results CBC & Chem 7: 12/06/18 08:19 12/06/18 08:19 Labs: Abnormal Lab Results - Last 24 Hours (Table) 12/05/18 12/05/18 12/05/18 Range/Units 16:10 16:10 22:56 WBC (3.8-10.6) k/uL RBC 3.09 L (4.30-5.90) m/uL Hgb 8.2 L (13.0-17.5) gm/dL Hct 24.3 L (39.0-53.0) % MCV 78.7 L (80.0-100.0) fL RDW 22.2 H (11.5-15.5) % Plt Count 86 L (150-450) k/uL Lymphocytes # 0.6 L (1.0-4.8) k/uL ESR (0-15) mm/hr Chloride (98-107) mmol/L BUN 31 H (9-20) mg/dL Creatinine 1.86 H (0.66-1.25) mg/dL Glucose 115 H (74-99) mg/dL POC Glucose (mg/dL) 196 H (75-99) mg/dL Total Bilirubin 2.2 H (0.2-1.3) mg/dL AST 13 L (17-59) U/L ALT 14 L (21-72) U/L C-Reactive Protein (<10.0) mg/L Total Protein (6.3-8.2) g/dL Albumin (3.5-5.0) g/dL 12/06/18 12/06/18 12/06/18 Range/Units 03:39 07:04 08:19 WBC 2.5 L (3.8-10.6) k/uL RBC 2.86 L (4.30-5.90) m/uL Hgb 7.5 L (13.0-17.5) gm/dL Hct 23.3 L (39.0-53.0) % MCV (80.0-100.0) fL RDW 22.3 H (11.5-15.5) % Plt Count 74 L (150-450) k/uL Lymphocytes # 0.6 L (1.0-4.8) k/uL ESR (0-15) mm/hr Chloride (98-107) mmol/L BUN (9-20) mg/dL Creatinine (0.66-1.25) mg/dL Glucose (74-99) mg/dL POC Glucose (mg/dL) 117 H 113 H (75-99) mg/dL Total Bilirubin (0.2-1.3) mg/dL AST (17-59) U/L ALT (21-72) U/L C-Reactive Protein (<10.0) mg/L Total Protein (6.3-8.2) g/dL Albumin (3.5-5.0) g/dL 12/06/18 12/06/18 12/06/18 Range/Units 08:19 10:30 11:47 WBC (3.8-10.6) k/uL RBC (4.30-5.90) m/uL Hgb (13.0-17.5) gm/dL Hct (39.0-53.0) % MCV (80.0-100.0) fL RDW (11.5-15.5) % Plt Count (150-450) k/uL Lymphocytes # (1.0-4.8) k/uL ESR 56 H (0-15) mm/hr Chloride 109 H (98-107) mmol/L BUN 30 H (9-20) mg/dL Creatinine 1.51 H (0.66-1.25) mg/dL Glucose 115 H (74-99) mg/dL POC Glucose (mg/dL) 156 H (75-99) mg/dL Total Bilirubin 1.4 H (0.2-1.3) mg/dL AST 13 L (17-59) U/L ALT 16 L (21-72) U/L C-Reactive Protein 60.0 H (<10.0) mg/L Total Protein 5.6 L (6.3-8.2) g/dL Albumin 3.3 L (3.5-5.0) g/dL Assessment and Plan Assessment: 1-patient presenting to the hospital with right upper extremity pain and swelling which has been chronic for him however has been worse the last few days was in swelling involving the ankle area suspicious is high for underlying gouty arthritis in this patient currently with no fever or elevated white count and no significant erythema was noticed on today's evaluation however underlying infection is not entirely excluded in this patient is currently immunocompromised, status post liver transplant on immunosuppressive medication Plan: 1-await the MRI of the ankle area ordered by the admitting physician 2-we'll wait for the blood cultures to finalize 3-continue with empiric vancomycin pharmacy to dose while watching his kidney function closely and Rocephin We will follow-up on clinical condition and cultures to further adjust medication if needed Thank you for this consultation will follow this patient along with you Time with Patient: Greater than 30
[2018-12-07] MEDS: HYDROmorphone 1 MG/ML 1 ML SYRINGE IVP PRN ×7 (01:03→22:17)
[2018-12-07] MEDS: VANCOMYCIN 1,500 MG in SODIUM CHLORIDE 0.9% 250 ML IVPB SCH ×2 (04:01→19:31)
[2018-12-07] MEDS: ENTECAVIR 0.5 MG PO SCH ×2 (05:38→07:52)
[2018-12-07 06:44] LABS: Glucose,Whole Blood 108 mg/dL (75-99)
[2018-12-07] MEDS: INSULIN ASPART (NovoLOG) 100 UNIT/ML VIAL SQ SCH ×4 (07:28→20:30)
[2018-12-07] MEDS: ASPIRIN 325 MG TAB PO SCH (07:46)
[2018-12-07] MEDS: PANTOPRAZOLE 40 MG TABLET PO SCH (07:46)
[2018-12-07] MEDS: ATORVASTATIN 20 MG TAB PO SCH (07:46)
[2018-12-07] MEDS: ALLOPURINOL 100 MG TAB PO SCH (07:46)
[2018-12-07] MEDS: FUROSEMIDE 40 MG TAB PO SCH (07:47)
[2018-12-07] MEDS: predniSONE 10 MG TAB PO SCH (07:47)
[2018-12-07] MEDS: CHOLECALCIFEROL 400 UNIT TAB PO SCH (07:48)
[2018-12-07] MEDS: METHOCARBAMOL 500 MG TAB PO SCH ×2 (07:48→20:31)
[2018-12-07] MEDS: PREGABALIN 75 MG CAP PO SCH ×2 (07:48→20:31)
[2018-12-07] MEDS: TACROLIMUS 1 MG CAP PO SCH ×2 (07:49→20:32)
[2018-12-07] MEDS: URSODIOL 300 MG CAP PO SCH ×2 (07:50→20:32)
[2018-12-07] MEDS: EVEROLIMUS PO SCH ×2 (07:51→20:29)
[2018-12-07] MEDS: Vortioxetine Hydrobromide [Trintellix] 10 MG PO SCH (07:52)
[2018-12-07] MEDS: HYDROcodone/APAP 7.5-325MG 1 EACH TAB PO SCH ×2 (08:19→20:29)
[2018-12-07 11:52] LABS: Glucose,Whole Blood 166 mg/dL (75-99)
--- NOTE | 2018-12-07 14:07 | MR ---
EXAMINATION TYPE: MR LE non joint RT wo/w con there is a large island of low DATE OF EXAM: 12/07/2018 COMPARISON: Correlation radiographs 12/06/2018 HISTORY: 62-year-old male with pain, evaluate for Osteomyelitis Technique: Multiplanar, multisequence images of the right leg were obtained before and after administ ration of 10 mL intravenous Gadavist gadolinium contrast. Coronal images of the contralateral leg we re obtained for comparison purposes. FINDINGS: There is marked generalized soft tissue swelling of the right lower extremity, to a greater extent al hortencia the distal half. Mild generalized muscular edema is also demonstrated throughout the right lower extremity. Muscular e miranda is more severe within the deep posterior compartment where some edema is also present along the deep fascial planes. Postcontrast sequences show minimal if any associated enhancement. There is diffuse enhancement of the thickened skin. There is a large island of diminished T1 signal within the tibial shaft. A similar finding is present on the other side. This area shows only mild postcontrast enhancement. Only intermediate increased s ignal on STIR but no significant increased signal on T2 fat sat sequence. Suggests large areas of red marrow hyperplasia. IMPRESSION: 1. Generalized right lower extremity soft tissue swelling and skin thickening. Differential considera tions include severe cellulitis or other nonspecific soft tissue edema. 2. Mild generalized muscular edema within the right leg but with more severe edema in the deep awning installer ior compartment. This shows only minimal postcontrast enhancement. Differential considerations includ e edema reactive to upstream DVT, or edema reactive to injury at the tendinous attachments within the foot. An aggressive, deeper soft tissue infection/necrotizing fasciitis is also in the differential but considered somewhat less likely given the lack of significant enhancement of the musculature. Fur ther clinical correlation will be needed. 3. Large island of hyperplastic red marrow within the tibial shaft without convincing evidence for os teomyelitis.
[2018-12-07 17:02] LABS: Glucose,Whole Blood 214 mg/dL (75-99)
[2018-12-07 17:21] LABS: Hemoglobin A1C 4.2 % (4.0-6.0)
--- NOTE | 2018-12-07 18:46 | PN ---
PROGRESS NOTE DATE OF SERVICE: 12/07/2018. REASON FOR FOLLOWUP: Right lower extremity cellulitis. INTERVAL HISTORY: The patient is currently afebrile. The patient did complain of pain to the right leg area. The patient did have diffuse swelling of the right leg more on the ankle. Currently no significant redness, open wound drainage. Denies any chest pain. No shortness of breath. No cough. No diarrhea. PHYSICAL EXAMINATION: Blood pressure 145/57 with a pulse of 57, temperature 97.9. He is 93% on room air. General description is a middle aged male up in the room in no distress. Respiratory system: Unlabored breathing. Clear to auscultation anteriorly. Heart S1, S2. Regular rate and rhythm. Abdomen soft, no tenderness. The right ankle area remains to be swollen. Currently with no open wound or any drainage. Slightly tender to touch. LABS: Blood culture has been negative. No CBC was done today. MRI of the lower extremity, which did show generalized right lower extremity soft tissue swelling and skin thickening with differential of cellulitis or other nonspecific soft tissue edema. DIAGNOSTIC IMPRESSION AND PLAN: Patient admitted to the hospital with the right lower extremity swelling. The pain mostly around the ankle area. Unfortunately, the ankle was not included in the MRI that would have been beneficial. We will keep the patient on Rocephin and vancomycin at this point. This will be discussed further with the ortho and the admitting team. Continue supportive care. SVITLANA / ABHINAV: [id number] /
[2018-12-07 20:07] LABS: Glucose,Whole Blood 181 mg/dL (75-99)
[2018-12-07] MEDS: INSULIN DETEMIR (LEVEMIR) 100 UNIT/ML SYR SQ SCH (20:31)
[2018-12-07] MEDS: TAMSULOSIN 0.4 MG CAP.ER.24H PO SCH (20:32)
[2018-12-08] MEDS: HYDROmorphone 1 MG/ML 1 ML SYRINGE IVP PRN ×7 (01:31→23:20)
[2018-12-08 07:06] LABS: Glucose,Whole Blood 136 mg/dL (75-99)
[2018-12-08] MEDS: PANTOPRAZOLE 40 MG TABLET PO SCH (08:13)
[2018-12-08] MEDS: ASPIRIN 325 MG TAB PO SCH (08:13)
[2018-12-08] MEDS: HYDROcodone/APAP 7.5-325MG 1 EACH TAB PO SCH ×2 (08:13→21:14)
[2018-12-08] MEDS: FUROSEMIDE 40 MG TAB PO SCH (08:14)
[2018-12-08] MEDS: predniSONE 10 MG TAB PO SCH (08:14)
[2018-12-08] MEDS: INSULIN ASPART (NovoLOG) 100 UNIT/ML VIAL SQ SCH ×4 (08:14→21:16)
[2018-12-08] MEDS: PREGABALIN 75 MG CAP PO SCH ×2 (08:14→21:15)
[2018-12-08] MEDS: ATORVASTATIN 20 MG TAB PO SCH (08:14)
[2018-12-08] MEDS: TACROLIMUS 1 MG CAP PO SCH ×2 (08:25→21:15)
[2018-12-08] MEDS: CHOLECALCIFEROL 400 UNIT TAB PO SCH (08:26)
[2018-12-08] MEDS: METHOCARBAMOL 500 MG TAB PO SCH ×2 (08:26→21:15)
[2018-12-08] MEDS: URSODIOL 300 MG CAP PO SCH ×2 (08:26→21:15)
[2018-12-08] MEDS: EVEROLIMUS PO SCH ×2 (08:26→21:14)
[2018-12-08] MEDS ORDERED: VANCOMYCIN TROUGH DUE 1 EACH MISC MISCELLANE ONE (11:00)
[2018-12-08 12:07] LABS: Glucose,Whole Blood 150 mg/dL (75-99)
--- NOTE | 2018-12-08 12:52 | MR ---
MR right foot with and without contrast HISTORY: erythema and swelling, pain Correlation to right ankle dated 12/06/2018 and MRI lower extremity 12/07/2018 Suspect there is small osteochondral defect at the ankle mortise medially. Some reactive marrow signa l changes are present within the talus at the ankle mortise and also within the distal tibia. There i s diffuse T2 intense signal, T1 intermediate signal noted within the soft tissues. Some arthropathy a lso noted at the subtalar joint with subchondral geode formation at the posterior facet of the calcan eus. Mild T2 increased signal present within the talus as well thought likely to represent likely rep resenting reactive marrow signal change. There is T2 intense signal also present within the musculatu re volar aspect of the foot. Flexor and extensor tendons are intact. Peroneal longus and brevis tendo ns are intact. There is some enhancement of the soft tissues volar aspect of the foot as well as subcutaneous soft t issues following contrast administration. IMPRESSION: Degenerative changes are favored within the ankle. No convincing evidence of osteomyeliti s. Consider cellulitis, myositis.
[2018-12-08] MEDS: Vortioxetine Hydrobromide [Trintellix] 10 MG PO SCH (13:06)
[2018-12-08] MEDS: VANCOMYCIN 1,500 MG in SODIUM CHLORIDE 0.9% 250 ML IVPB SCH (13:06)
[2018-12-08 17:11] LABS: Glucose,Whole Blood 184 mg/dL (75-99)
--- NOTE | 2018-12-08 17:31 | P.PN ---
Subjective Progress Note Date: 12/08/18 Principal diagnosis: Right ankle/foot pain Patient evaluated at bedside today. He notes discomfort throughout the right foot and ankle, he states it is slightly improved since yesterday. Objective - Vital Signs Vital signs: Vital Signs Temp 97.5 F L 12/08/18 12:17 Pulse 65 12/08/18 12:17 Resp 16 12/08/18 12:17 BP 111/56 12/08/18 12:17 Pulse Ox 97 12/08/18 12:17 Intake & Output 12/07/18 12/08/18 12/08/18 18:59 06:59 18:59 Intake Total 1130 250 Output Total 400 1300 Balance -400 -170 250 Intake: Intake, IV Titration 50 250 Amount Vancomycin 1,250 mg In 250 Sodium Chloride 0.9% 250 ml @ 125 mls/hr IVPB Q16H [facility] Rx#:[id number] cefTRIAXone 1 gm In 50 Sodium Chloride 0.9% 50 ml @ 100 mls/hr IVPB Q24H [facility] Rx#:[id number] Oral 1080 Output: Urine 400 1300 Other: Voiding Method Urinal Urinal # Voids 3 - Exam Right lower extremity: Physical exam is unchanged since initial exam - Labs CBC & Chem 7: 12/06/18 08:19 12/08/18 11:31 Labs: Abnormal Lab Results - Last 24 Hours (Table) 12/07/18 12/08/18 12/08/18 Range/Units 20:06 07:05 11:31 Creatinine 1.48 H (0.66-1.25) mg/dL POC Glucose (mg/dL) 181 H 136 H (75-99) mg/dL 12/08/18 12/08/18 Range/Units 12:06 17:10 Creatinine (0.66-1.25) mg/dL POC Glucose (mg/dL) 150 H 184 H (75-99) mg/dL Microbiology - Last 24 Hours (Table) 12/05/18 16:10 Blood Culture - Preliminary Blood No Growth after 48 hours Assessment and Plan Plan: Assessment: 1. Right lower extremity edema 2. Possible right ankle gouty arthropathy 3. Possible cellulitic component right lower extremity 4. Multiple medical comorbidities Plan: MRI of the right ankle demonstrated no ankle effusion or abscess. No orthopedic surgical intervention needed at this time. Recommend icing and elevating Other medical grade shoemaker recommendations We'll be signing of the patient at this time, we'll be available for any further questions Time with Patient: Less than 30
[2018-12-08 20:49] LABS: Glucose,Whole Blood 206 mg/dL (75-99)
[2018-12-08] MEDS: TAMSULOSIN 0.4 MG CAP.ER.24H PO SCH (21:14)
[2018-12-08] MEDS: INSULIN DETEMIR (LEVEMIR) 100 UNIT/ML SYR SQ SCH (21:16)
--- NOTE | 2018-12-08 22:05 | PN ---
PROGRESS NOTE DATE OF SERVICE: 12/08/2018 PRESENTING COMPLAINT: Right foot pain. INTERVAL HISTORY: I did attempt to see the patient twice yesterday, but the patient was out of the floor. The patient presented with right foot pain, felt to be cellulitis, arthritis. Patient's osteomyelitis workup has been negative until now. Blood cultures have been negative, too. Some pain is still present. ID is following. The patient has been on antibiotics. REVIEW OF SYSTEMS: Done for constitutional, cardiovascular, GI, pulmonary; relevant findings as above. CURRENT MEDICATIONS: Reviewed. They include IV ceftriaxone and vancomycin. PHYSICAL EXAMINATION: Temperature 97.5, pulse 65, respiration 16, blood pressure 111/56, pulse ox 97% on room air. GENERAL APPEARANCE: BMI 31.6. Lying in bed. EYES: Pupils equal. Conjunctivae normal. NECK: JVD not raised. Mass not palpable. RESPIRATORY: Effort normal. LUNGS: Decreased breath sounds. CARDIOVASCULAR: First and second sounds normal. No edema. ABDOMEN: Soft, non-tender. Liver and spleen not palpable. PSYCHIATRY: Alert and oriented x3. Mood and affect normal. EXTREMITIES: Right foot with some tenderness. INVESTIGATIONS: White count 2.5, hemoglobin 7.5, platelets 74, potassium 4.7, BUN 30, creatinine 1.51. Uric acid 8.4. ASSESSMENT: 1. Acute on chronic right foot pain; could be a combination of arthritis, neuropathy and could be early findings of a Charcot foot. Also element of cellulitis still possible. 2. Chronic kidney disease, stage III, from nephrosclerosis. 3. Peripheral neuropathy, probably secondary to cirrhosis. 4. Status post liver transplant for cirrhosis. 5. Chronic fibromyalgia. 6. Essential hypertension. 7. Hyperlipidemia. 8. Obesity; body mass index 31.6. PLAN: Continue current medication and treatment plan, antibiotics as per Dr. Garibay. Other medications to continue. Will discuss with Dr. Garibay to see if we can switch the vancomycin to something else, given his renal function. Care was discussed with the patient. Will follow. MMODL / IJN: [id number] /
--- NOTE | 2018-12-08 22:11 | PN ---
PROGRESS NOTE DATE OF SERVICE: 12/08/2018. REASON FOR FOLLOWUP: Right lower extremity cellulitis. INTERVAL HISTORY: The patient is currently afebrile, has been breathing comfortably. No significant chest pain. Occasional cough. No abdominal pain. Still complaining of pain to the bilateral lower extremity more on the right ankle area. PHYSICAL EXAMINATION: Blood pressure 155/67 with a pulse of 64. Temperature is 98.1. He is 97% on 2 L nasal cannula. General description is a middle-aged male lying in bed in no distress. Respiratory system: Unlabored breathing, clear to auscultation anteriorly. Heart S1, S2. Regular rate and rhythm. Abdomen soft, no tenderness. The right leg remains to be swollen. No significant redness or swelling at the ankle area. LABS: Creatinine is 1.48 today. No other lab have been done. Blood culture has been negative. MRI of the ankle area did not show any evidence of joint effusion or osteomyelitis. DIAGNOSTIC IMPRESSION AND PLAN: Patient admitted to the hospital bilateral lower extremity swelling with more marked inside of the ankle area. More likely, gouty arthritis with cultures positive for cellulitis. Clinically doubt osteomyelitis. At this point, we will discontinue the vancomycin to decrease risk of toxicity as well Rocephin and start the patient on cefazolin 2 g daily to cover for possible cellulitis and monitor his clinical course closely. MMODL / IJN: [id number] /
[2018-12-08] MEDS: ceFAZolin IN SWFI 2 GM/20 ML SYRINGE IVP SCH (23:20)
[2018-12-09] MEDS: HYDROmorphone 1 MG/ML 1 ML SYRINGE IVP PRN ×3 (02:22→11:12)
[2018-12-09] MEDS ORDERED: VANCOMYCIN 1,250 MG in SODIUM CHLORIDE 0.9% 250 ML IVPB SCH (05:00)
[2018-12-09 07:14] LABS: Glucose,Whole Blood 127 mg/dL (75-99)
[2018-12-09] MEDS: PANTOPRAZOLE 40 MG TABLET PO SCH (07:37)
[2018-12-09] MEDS: FUROSEMIDE 40 MG TAB PO SCH (07:37)
[2018-12-09] MEDS: HYDROcodone/APAP 7.5-325MG 1 EACH TAB PO SCH ×2 (07:37→20:16)
[2018-12-09] MEDS: predniSONE 10 MG TAB PO SCH (07:38)
[2018-12-09] MEDS: ASPIRIN 325 MG TAB PO SCH (07:38)
[2018-12-09] MEDS: ATORVASTATIN 20 MG TAB PO SCH (07:38)
[2018-12-09] MEDS: PREGABALIN 75 MG CAP PO SCH ×2 (07:38→20:17)
[2018-12-09] MEDS: EVEROLIMUS PO SCH ×2 (07:39→20:16)
[2018-12-09] MEDS: Vortioxetine Hydrobromide [Trintellix] 10 MG PO SCH (07:40)
[2018-12-09] MEDS: METHOCARBAMOL 500 MG TAB PO SCH ×2 (07:42→20:16)
[2018-12-09] MEDS: TACROLIMUS 1 MG CAP PO SCH (07:42)
[2018-12-09] MEDS: URSODIOL 300 MG CAP PO SCH ×2 (07:43→20:17)
[2018-12-09] MEDS: CHOLECALCIFEROL 400 UNIT TAB PO SCH (07:43)
[2018-12-09] MEDS: INSULIN ASPART (NovoLOG) 100 UNIT/ML VIAL SQ SCH ×4 (07:43→20:18)
[2018-12-09] MEDS: ceFAZolin IN SWFI 2 GM/20 ML SYRINGE IVP SCH ×3 (09:06→23:06)
[2018-12-09 09:49] LABS: Anisocytosis Moderate; Basophils % (A) 1 %; Eosinophils # (A) 0.1 k/uL (0-0.7); Eosinophils % (A) 2 %; HCT 21.3 % (39.0-53.0); Hyperchromasia Slight; Hypochromasia Marked; Lymphocytes # (A) 0.7 k/uL (1.0-4.8); Lymphocytes % (A) 29 %; MCH 26.4 pg (25.0-35.0); MCHC 33.1 g/dL (31.0-37.0); MCV 79.6 fL (80.0-100.0); Mean Platelet Volume 9.5; Microcytosis Moderate; Monocytes # (A) 0.2 k/uL (0-1.0); Monocytes % (A) 7 %; Neutrophils # (A) 1.4 k/uL (1.3-7.7); Neutrophils % (A) 59 %; Poikilocytosis Marked; RBC 2.67 m/uL (4.30-5.90); RDW 21.6 % (11.5-15.5); WBC 2.4 k/uL (3.8-10.6)
[2018-12-09 09:57] LABS: Platelet Count 77 k/uL (150-450)
[2018-12-09 12:21] LABS: Glucose,Whole Blood 189 mg/dL (75-99)
[2018-12-09 12:57] LABS: Reticulocyte % 5.4 % (0.5-2.0)
[2018-12-09] MEDS: DICLOFENAC SODIUM GEL 100 GM TUBE TOPICAL SCH ×3 (13:50→20:17)
[2018-12-09] MEDS: COLCHICINE 0.6 MG EACH PO SCH (13:51)
--- NOTE | 2018-12-09 14:00 | PN ---
PROGRESS NOTE DATE OF SERVICE: 12/09/2018 PRESENTING COMPLAINT: Right foot pain. INTERVAL HISTORY: This patient has been having pain in the right foot for close to about 4 months. He has also seen Rheumatology. He has been also told that the patient may have gout. The patient does have hyperuricemia and also on Uloric acid. The patient's whole foot is swollen. There is no evidence of osteomyelitis. The foot as a whole is swollen. The patient also has a flatfoot. The patient also has neuropathy in the same. The patient's symptoms seem to be a combination of arthritis, gout, and degenerative changes and element of cellulitis. REVIEW OF SYSTEMS: Done for constitutional, cardiovascular, GI, pulmonary, musculoskeletal and relevant findings as above. CURRENT MEDICATIONS: Reviewed that include IV ceftriaxone and IV Ancef. Vancomycin was discontinued. PHYSICAL EXAMINATION: VITAL SIGNS: Temperature 98, pulse 63, respiratory 18, blood pressure 153/65, pulse ox 97% on room air. GENERAL APPEARANCE: Sitting up, awake. EYES: Pupil equal. Conjunctivae normal. NECK: JVD not raised. Mass not palpable. RESPIRATORY: Effort normal. LUNGS: Decreased breath sounds. CARDIOVASCULAR: 1st and 2nd sounds normal. Mild edema. ABDOMEN: Soft, nontender. Liver and spleen not palpable. EXTREMITIES: Right lower extremity more swollen compared to the left. The foot is also swollen and very slight. Some findings of inflammation. NEUROLOGICAL: The patient has had some chronic right-sided weakness. INVESTIGATIONS: White count 2.4, hemoglobin 7, platelets 77. Accu-Cheks are noted. ASSESSMENT: 1. Acute on chronic right foot pain seems to be a combination of arthritis, neuropathy, gouty arthritis, element of cellulitis. 2. Hyperuricemia. Patient is already on Uloric acid. 3. Chronic kidney disease stage 3 from nephrosclerosis. 4. Peripheral neuropathy secondary to cirrhosis. 5. Status post liver transplant for cirrhosis. 6. Chronic fibromyalgia. 7. Essential hypertension. 8. Hyperlipidemia. 9. Obesity; BMI 31.6. PLAN: Care was discussed at length with the patient. We will add the colchicine to see if that helps with the pain. We will also use Voltaren gel topically and use Corey wraps and a K-pad. Some of these changes are chronic and also neuropathy probably is contributing to the whole picture. The patient is already on Lyrica. The patient should be able to be switched over to oral antibiotics and probably be discharged tomorrow. MMODL / IJN: [id number] /
[2018-12-09 17:17] LABS: Glucose,Whole Blood 212 mg/dL (75-99)
[2018-12-09 19:56] LABS: Glucose,Whole Blood 183 mg/dL (75-99)
[2018-12-09] MEDS: TAMSULOSIN 0.4 MG CAP.ER.24H PO SCH (20:17)
[2018-12-09] MEDS: INSULIN DETEMIR (LEVEMIR) 100 UNIT/ML SYR SQ SCH (20:18)
[2018-12-09] MEDS ORDERED: TACROLIMUS 0.5 MG CAP PO SCH (21:00)
[2018-12-10 07:06] LABS: Glucose,Whole Blood 110 mg/dL (75-99)
[2018-12-10] MEDS: INSULIN ASPART (NovoLOG) 100 UNIT/ML VIAL SQ SCH ×2 (07:53→12:48)
[2018-12-10] MEDS: HYDROcodone/APAP 7.5-325MG 1 EACH TAB PO SCH (08:07)
[2018-12-10] MEDS: predniSONE 10 MG TAB PO SCH (08:07)
[2018-12-10] MEDS: PANTOPRAZOLE 40 MG TABLET PO SCH (08:07)
[2018-12-10] MEDS: ASPIRIN 325 MG TAB PO SCH (08:08)
[2018-12-10] MEDS: ATORVASTATIN 20 MG TAB PO SCH (08:08)
[2018-12-10] MEDS: FUROSEMIDE 40 MG TAB PO SCH (08:08)
[2018-12-10] MEDS: PREGABALIN 75 MG CAP PO SCH (08:08)
[2018-12-10] MEDS: Vortioxetine Hydrobromide [Trintellix] 10 MG PO SCH (08:09)
[2018-12-10] MEDS: EVEROLIMUS PO SCH (08:11)
[2018-12-10] MEDS: DICLOFENAC SODIUM GEL 100 GM TUBE TOPICAL SCH ×2 (08:12→12:49)
[2018-12-10] MEDS: CHOLECALCIFEROL 400 UNIT TAB PO SCH (08:15)
[2018-12-10] MEDS: COLCHICINE 0.6 MG EACH PO SCH (08:15)
[2018-12-10] MEDS: METHOCARBAMOL 500 MG TAB PO SCH (08:15)
[2018-12-10] MEDS: ceFAZolin IN SWFI 2 GM/20 ML SYRINGE IVP SCH (08:16)
[2018-12-10] MEDS: URSODIOL 300 MG CAP PO SCH (08:16)
[2018-12-10] MEDS ORDERED: TACROLIMUS 0.5 MG CAP PO SCH (09:00)
[2018-12-10 09:35] LABS: Anisocytosis Moderate; Basophils % (A) 1 %; Eosinophils # (A) 0.1 k/uL (0-0.7); Eosinophils % (A) 2 %; HCT 25.2 % (39.0-53.0); HGB 8.4 gm/dL (13.0-17.5); Hypochromasia Moderate; Lymphocytes # (A) 0.8 k/uL (1.0-4.8); Lymphocytes % (A) 31 %; MCH 26.5 pg (25.0-35.0); MCHC 33.2 g/dL (31.0-37.0); MCV 79.7 fL (80.0-100.0); Mean Platelet Volume 9.4; Microcytosis Moderate; Monocytes # (A) 0.2 k/uL (0-1.0); Monocytes % (A) 7 %; Neutrophils # (A) 1.5 k/uL (1.3-7.7); Neutrophils % (A) 56 %; Poikilocytosis Marked; RBC 3.16 m/uL (4.30-5.90); RDW 21.5 % (11.5-15.5); WBC 2.7 k/uL (3.8-10.6)
[2018-12-10 09:39] LABS: Platelet Count 82 k/uL (150-450)
[2018-12-10 11:44] LABS: Glucose,Whole Blood 189 mg/dL (75-99)
[2018-12-10 13:07] VITALS: BP 115/52; PULSE 81; RESP 16; TEMP 97.6
--- NOTE | 2018-12-10 22:35 | DS ---
DISCHARGE SUMMARY DATE OF ADMISSION: 12/05/2018. DATE OF DISCHARGE: 12/10/2018. FINAL DIAGNOSES: 1. Acute right ankle cellulitis. 2. Chronic right foot pain with acute exacerbation, combination of gout, arthritis, neuropathy. 3. Hyperuricemia secondary to gout. 4. Chronic kidney stage 3 from nephrosclerosis. 5. Peripheral neuropathy secondary to cirrhosis. 6. Status post liver transplant from cirrhosis. 7. Chronic fibromyalgia. 8. Essential hypertension. 9. Hyperlipidemia. 10.Obesity; BMI 31.6. HOSPITAL COURSE: This patient with acute on chronic pain on the right ankle. Has swelling from mid leg down to the foot. The patient has had this pain for a few months with acute exacerbation. There was felt to be an element of gout, acute cellulitis. Osteomyelitis was ruled out. The patient has an element of neuropathy. I had a very lengthy discussion today about pain management, local care, and other modalities of pain control example acupuncture and mindfulness/meditation. The patient understands the same. Also discussed with Dr. Garibay from [place]. We will switch the patient to oral Keflex. Consultation with Dr. Garibay from [facility], Dr. Helms from Orthopedics. PHYSICAL EXAMINATION: Temperature 97.6, pulse 81, respirations 16, blood pressure 105/52, pulse ox 97% on room air. Some swelling of the right leg. INVESTIGATIONS: White count 2.7, hemoglobin 8.4, platelets 82,000. The patient's radiological examination included foot MRI, x-ray of the foot and the ankle, Doppler ultrasound. DISCHARGE MEDICATIONS: 1. Baraclude 0.5 mg every 48 hours. 2. Flomax 0.4 mg at bedtime. 3. NovoLog 15 units subcu with meals t.i.d. 4. Lantus 30 units subcu at bedtime. 5. Prograf 8 mg p.o. daily. 6. Actigall 300 mg b.i.d. 7. Lyrica 75 mg b.i.d. 8. Lipitor 20 mg p.o. daily. 9. Vitamin D3, 4000 units p.o. daily. 10. 1.5 mg b.i.d. 11.Uloric 80 mg p.o. daily. 12.Lasix 40 mg p.o. daily. 13.[place] 7.5 one tab b.i.d. 14.Robaxin 500 mg b.i.d. 15.Fish oil 1000 mg p.o. daily. 16.Prozac 20 mg p.o. with breakfast. 17.Prograf 7 mg p.o. at bedtime. 18.Trintellix 50 mg p.o. daily. 19.Aspirin 81 mg p.o. daily. 20.Keflex 500 mg every 8 hours 21 capsules. 21.Colchicine 0.6 mg p.o. daily added for gout. 22.Voltaren Gel 4 g topical q.i.d. to the right ankle. 23.Patient advised the use local heat, warm water soaks, foot massages, Corey wraps in addition to mindfulness. Discussion discharge planning more than 35 minutes. FOLLOWUP: 1. With transplant doctor. 2. Follow up with Dr. Merchant in 3 days. 3. Follow up with Dr. Mcclendon in 1 week. 4. Follow up with Dr. Helms in 1 week. MMODL / IJN: [id number] /
== END 2018-12-10 14:27 | disposition home or self-care (01) | DRG 603 ==
LOC: EC 14:39 → 3NMEDONC 18:38
PROVIDERS: ADMIT Hospitalist; ATTEND Hospitalist
PROC: 30233N1 Transfusion of Nonautologous Red Blood Cells into Peripheral Vein, Percutaneous Approach (ICD-10-PCS; principal; 2018-12-09)
DX: L03.115 Cellulitis of right lower limb (principal); B18.1 Chronic viral hepatitis B without delta-agent; D61.818 Other pancytopenia; Z94.4 Liver transplant status; E11.22 Type 2 diabetes mellitus with diabetic chronic kidney disease; G62.89 Other specified polyneuropathies; K74.60 Unspecified cirrhosis of liver; N18.3 Chronic kidney disease, stage 3 (moderate); M10.9 Gout, unspecified; E66.9 Obesity, unspecified; E78.5 Hyperlipidemia, unspecified; G25.81 Restless legs syndrome; G89.29 Other chronic pain; I12.9 Hypertensive chronic kidney disease with stage 1 through stage 4 chronic kidney disease, or unspecified chronic kidney disease; M19.90 Unspecified osteoarthritis, unspecified site; M79.7 Fibromyalgia; F32.9 Major depressive disorder, single episode, unspecified; M54.2 Cervicalgia; M54.9 Dorsalgia, unspecified; H91.90 Unspecified hearing loss, unspecified ear; Z68.31 Body mass index [BMI] 31.0-31.9, adult; Z79.4 Long term (current) use of insulin; Z79.82 Long term (current) use of aspirin; Z79.899 Other long term (current) drug therapy; Z86.73 Personal history of transient ischemic attack (TIA), and cerebral infarction without residual deficits; Z87.440 Personal history of urinary (tract) infections; Z87.891 Personal history of nicotine dependence; Z90.49 Acquired absence of other specified parts of digestive tract; Z98.42 Cataract extraction status, left eye; Z98.41 Cataract extraction status, right eye; Z96.1 Presence of intraocular lens; Z82.49 Family history of ischemic heart disease and other diseases of the circulatory system
CPT/HCPCS: 36415; 80053; 80202; 82247; 82565; 83010; 83036; 83735; 83880; 84100; 84484; 84550; 85025; 85045; 85652; 86140; 86850; 86900; 86901; 86920; 87040; 93005; 94760; 96365; 96375; 99285

== ENCOUNTER 2019-01-09 22:15 | Emergency (ER) | payer OTHER ==
[2019-01-09 22:46] VITALS: RESP 18; TEMP 98.4
[2019-01-09] MEDS ORDERED: MORPHINE SULFATE 4 MG/ML SYRINGE IV STA (23:30)
[2019-01-09] MEDS ORDERED: SODIUM CHLORIDE 0.9% 1,000 ML IV STA (23:31)
[2019-01-09] MEDS ORDERED: HYDROmorphone 1 MG/ML 1 ML SYRINGE IVP STA (23:45)
[2019-01-09 23:59] LABS: Anisocytosis Moderate; Basophils % (A) 0 %; Eosinophils % (A) 1 %; HCT 33.6 % (39.0-53.0); HGB 11.2 gm/dL (13.0-17.5); Hyperchromasia Slight; Lymphocytes # (A) 0.7 k/uL (1.0-4.8); Lymphocytes % (A) 13 %; MCH 26.9 pg (25.0-35.0); MCHC 33.2 g/dL (31.0-37.0); Mean Platelet Volume 9.9; Microcytosis Slight; Monocytes # (A) 0.3 k/uL (0-1.0); Monocytes % (A) 6 %; Neutrophils # (A) 4.2 k/uL (1.3-7.7); Neutrophils % (A) 77 %; Poikilocytosis Marked; RBC 4.15 m/uL (4.30-5.90); RDW 20.1 % (11.5-15.5); WBC 5.4 k/uL (3.8-10.6)
[2019-01-10 00:09] LABS: Albumin 3.9 g/dL (3.5-5.0); Calcium 8.9 mg/dL (8.4-10.2); Total Bilirubin 2.5 mg/dL (0.2-1.3); Total Protein 6.2 g/dL (6.3-8.2)
--- NOTE | 2019-01-10 00:46 | XR ---
EXAM: XR Right Ankle Complete, 3 or More Views CLINICAL HISTORY: ITS.REASON XR Reason: Pain TECHNIQUE: Frontal, lateral and oblique views of the right ankle. COMPARISON: No relevant prior studies available. FINDINGS: Bones/joints: Unremarkable. No acute fracture. No dislocation. Soft tissues: Unremarkable. IMPRESSION: Normal right ankle x-rays.
[2019-01-10 00:47] LABS: Platelet Count 55 k/uL (150-450)
--- NOTE | 2019-01-10 00:47 | XR ---
EXAM: XR Right Tibia and Fibula, 2 Views CLINICAL HISTORY: ITS.REASON XR Reason: Pain TECHNIQUE: Frontal and lateral views of the right tibia and fibula. COMPARISON: No relevant prior studies available. FINDINGS: Bones/joints: Unremarkable. No acute fracture. No dislocation. Soft tissues: Unremarkable. No radiopaque foreign body. IMPRESSION: Normal right tibia and fibula x-rays.
--- NOTE | 2019-01-10 00:59 | ED ---
General Adult HPI - General Chief complaint: Extremity Problem,Nontraumatic Stated complaint: Gout Pain Rt Leg Time Seen by Provider: 01/09/19 22:49 Source: patient, RN notes reviewed, old records reviewed Mode of arrival: wheelchair Limitations: no limitations - History of Present Illness Initial comments: 63-year-old male patient passed no history of type 2 diabetes, fibromyalgia, hyperlipidemia, hypertension hepatitis B status post treatment, liver failure status post liver transplant presents to ED with pain in right foot and ankle. Patient forced this has been ongoing for approximately 6 months. Patient states that he has had redness swelling pain in his foot and ankle over this timeframe. Patient states that he has had multiple admissions for suspected cellulitis, however it was determined that it is gout causing his symptoms. Patient states the pain has gotten worse within the last week. He does however state that swelling and redness have gotten better. Patient also has a secondary complaint of pain in the os to right thigh. Patient denies any chest pain or shortness of breath. Patient denies abdominal pain, nausea vomiting or diarrhea. Denies other complaints. Systemic: Pt denies fatigue, fever/chills. Pt denies weakness, night sweats, weight loss. Neuro: Pt denies headache, visual disturbances, syncope or pre-syncope. HEENT: Pt denies ocular discharge or irritation, otalgia, rhinorrhea, pharyngitis or notable lymphadenopathy. Cardiopulmonary: Pt denies chest pain, SOB, heart palpitations, dyspnea on exertion. Abdominal/GI: Pt denies abdominal pain, n/v/d. : Pt denies dysuria, burning w/ urination, frequency/urgency. Denies new onset urinary or bowel incontinence. MSK: Pt denies myalgia, loss of strength or function in extremities. Neuro: Pt denies new onset weakness, paresthesias. - Related Data Home Medications Medication Instructions Recorded Confirmed Entecavir [Baraclude] 0.5 mg PO Q48H 03/10/14 01/09/19 Tamsulosin HCl [Flomax] 0.4 mg PO HS 04/14/15 01/09/19 Tacrolimus [Prograf] 8 mg PO QAM 06/14/18 01/09/19 Ursodiol [Actigall] 300 mg PO BID 06/14/18 01/09/19 Pregabalin [Lyrica] 75 mg PO BID 08/26/18 01/09/19 Atorvastatin [Lipitor] 20 mg PO DAILY 12/05/18 01/09/19 Cholecalciferol [Vitamin D3] 400 units PO DAILY 12/05/18 01/09/19 Everolimus [Zortress] 1.5 mg PO BID 12/05/18 01/09/19 Febuxostat [Uloric] 80 mg PO DAILY 12/05/18 01/09/19 Furosemide [Lasix] 40 mg PO DAILY 12/05/18 01/09/19 Methocarbamol [Robaxin] 500 mg PO QID 12/05/18 01/09/19 [place]-3 Fatty Acids/Fish Oil [Fish 1 cap PO DAILY 12/05/18 01/09/19 Oil 1,000 mg Softgel] Omeprazole [PriLOSEC] 20 mg PO AC-BRKFST 12/05/18 01/09/19 Tacrolimus [Prograf] 7 mg PO HS 12/05/18 01/09/19 Vortioxetine Hydrobromide 10 mg PO DAILY 12/05/18 01/09/19 [Trintellix] Aspirin 325 mg PO DAILY 01/09/19 01/09/19 predniSONE 5 mg PO DAILY 01/10/19 01/10/19 Allergies Allergy/AdvReac Type Severity Reaction Status Date / Time No Known Allergies Allergy Verified 01/09/19 23:14 Review of Systems ROS Statement: Those systems with pertinent positive or pertinent negative responses have been documented in the HPI. ROS Other: All systems not noted in ROS Statement are negative. 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, ear surgery as a child, cataracts, liver transplant at [facility] February 02, 2018 Past Anesthesia/Blood Transfusion Reactions: No Reported Reaction Additional Past Anesthesia/Blood Transfusion Reaction / Comment(s): past blood trnsfusions- no reacation Past Psychological History: Depression Smoking Status: Former smoker Past Alcohol Use History: None Reported Past Drug Use History: None Reported - Past Family History Father Family Medical History: Liver Disease Mother Family Medical History: Congestive Heart Failure (CHF) Additional Family Medical History / Comment(s): DDD, heart stents, General Exam - General Exam Comments Initial Comments: Constitutional: NAD, AOX3, Pt has pleasant affect. HEENT: NC/AT, trachea midline, neck supple, no lymphadenopathy. Posterior pharynx non erythematous, without exudates. External ears appear normal, without discharge. Mucous membranes moist. Eyes PERRLA, EOM intact. There is no scleral icterus. No pallor noted. Cardiopulmonary: RRR, no murmurs, rubs or gallops, no JVD noted. Lungs CTAB in anterior and posterior shepherd. No peripheral edema. Abdominal exam: Abdomen soft and non-distended. Abdomen non-tender to palpation in all 4 quadrants. Bowel sounds active in LLQ. No hepatosplenomegaly. No ecchymosis Neuro: CN II-XII grossly intact. No nuchal rigidity. No raccon eyes, no martinez sign, no hemotympanum. No cervical spinal tenderness. MSK: Right lower extremity foot and ankle erythematous, tender to touch, no warm th no streaking. Posterior calf nontender. Non-erythematous. Posterior thighs nontender, nonerythematous. Capillary refill less than 2 seconds in all toes. No posterior calf tenderness bilaterally, homans sign negative bilaterally. Posterior tibialis and radial pulse +2 bilaterally. Sensation intact in upper and lower extremities. Full active ROM in upper and lower extremities, 5/5 stregnth. Limitations: no limitations Course Vital Signs 01/09/19 22:44 Temperature 98.4 F Pulse Rate 70 Respiratory 18 Rate Blood Pressure 139/76 O2 Sat by Pulse 96 Oximetry Medical Decision Making - Medical Decision Making 63-year-old male patient passed no history of type 2 diabetes, fibromyalgia, hyperlipidemia, hypertension hepatitis B status post treatment, liver failure status post liver transplant presents to ED with pain in right foot and ankle. Patient forced this has been ongoing for approximately 6 months. Patient states that he has had redness swelling pain in his foot and ankle over this timeframe. Patient states that he has had multiple admissions for suspected cellulitis, however it was determined that it is gout causing his symptoms. Patient states the pain has gotten worse within the last week. He does however state that swelling and redness have gotten better. Patient also has a secondary complaint of pain in the os to right thigh. Patient denies any chest pain or shortness of breath. Patient denies abdominal pain, nausea vomiting or diarrhea. Denies other complaints. Patient was unstable, afebrile. Physical exam displayed: Right foot erythematous and tender to palpation. No streaking, no warmth. Capillary revill <2 seconds in all capillary beds. Laboratory investigations revealed platelets of 55 this is around baseline for patient. Blood chemistry revealed chronic kidney disease presents around baseline for patient. Plain film of tibia/fibula, ankle did not acute pathology. Venous Doppler ultrasound did not display any blood clot. Patient family secondary to previous it diagnosed gout. Patient discharged, will follow up with primary care provider. Case discussed in depth and pt seen by Dr. Alarcon. - Lab Data Result diagrams: 01/09/19 23:45 01/09/19 23:45 Lab Results 01/09/19 01/09/19 01/09/19 Range/Units 23:45 23:45 23:45 WBC 5.4 (3.8-10.6) k/uL RBC 4.15 L (4.30-5.90) m/uL Hgb 11.2 L (13.0-17.5) gm/dL Hct 33.6 L (39.0-53.0) % MCV 81.0 (80.0-100.0) fL MCH 26.9 (25.0-35.0) pg MCHC 33.2 (31.0-37.0) g/dL RDW 20.1 H (11.5-15.5) % Plt Count 55 L (150-450) k/uL Neutrophils % 77 % Lymphocytes % 13 % Monocytes % 6 % Eosinophils % 1 % Basophils % 0 % Neutrophils # 4.2 (1.3-7.7) k/uL Lymphocytes # 0.7 L (1.0-4.8) k/uL Monocytes # 0.3 (0-1.0) k/uL Eosinophils # 0.0 (0-0.7) k/uL Basophils # 0.0 (0-0.2) k/uL Manual Slide Review Performed Hyperchromasia Slight Poikilocytosis Marked Anisocytosis Moderate Microcytosis Slight Sodium 140 (137-145) mmol/L Potassium 4.0 (3.5-5.1) mmol/L Chloride 106 (98-107) mmol/L Carbon Dioxide 27 (22-30) mmol/L Anion Gap 7 mmol/L BUN 35 H (9-20) mg/dL Creatinine 1.92 H (0.66-1.25) mg/dL Est GFR (CKD-EPI)AfAm 42 (>60 ml/min/1.73 sqM) Est GFR (CKD-EPI)NonAf 36 (>60 ml/min/1.73 sqM) Glucose 107 H (74-99) mg/dL Plasma Lactic Acid Daniel 1.0 (0.7-2.0) mmol/L Calcium 8.9 (8.4-10.2) mg/dL Total Bilirubin 2.5 H (0.2-1.3) mg/dL AST 12 L (17-59) U/L ALT 14 L (21-72) U/L Alkaline Phosphatase 59 (38-126) U/L Total Protein 6.2 L (6.3-8.2) g/dL Albumin 3.9 (3.5-5.0) g/dL Disposition Clinical Impression: Arthralgia Disposition: HOME SELF-CARE Condition: Stable Instructions (If sedation given, give patient instructions): Arthralgia (ED) Additional Instructions: Patient to adhere to previously discussed treatment plan and will take medication(s) as directed. Patient to follow up with PCP in 1-2 days. Patient to return to ED if symptoms do not improve. Follow-up with primary care provider tomorrow. Return to ER if condition worsens in any way. Is patient prescribed a controlled substance at d/c from ED?: No Referrals: Ivan Merchant DO [Primary Care Provider] - 1-2 days
--- NOTE | 2019-01-10 01:19 | US ---
EXAM: US Duplex Right Lower Extremity Veins CLINICAL HISTORY: ITS.REASON US Reason: Pain TECHNIQUE: Real-time duplex ultrasound scan of the right lower extremity veins integrating B-mode two-dimensional vascular structure, Doppler spectral analysis, color flow Doppler imaging and compression. COMPARISON: No relevant prior studies available. FINDINGS: Deep veins: Unremarkable. No DVT in the visualized common femoral, femoral, proximal deep femoral or popliteal veins. The veins demonstrate normal color flow, are normally compressible, with normal phasic flow and/or augmentation response. Superficial veins: Unremarkable. No thrombus in the visualized great saphenous vein. Soft tissues: No suspicious findings. No popliteal cyst. IMPRESSION: Normal right lower extremity duplex venous ultrasound.
[2019-01-10] MEDS ORDERED: MORPHINE SULFATE 4 MG/ML SYRINGE IV STA ×2 (02:06→03:14)
[2019-01-10 03:27] VITALS: BP 160/93; PULSE 91
== END 2019-01-10 03:52 | disposition home or self-care (01) ==
LOC: EC 22:15
DX: M79.604 Pain in right leg (principal); M79.89 Other specified soft tissue disorders; M25.571 Pain in right ankle and joints of right foot; M79.671 Pain in right foot; M10.9 Gout, unspecified; L53.9 Erythematous condition, unspecified; K70.30 Alcoholic cirrhosis of liver without ascites; E78.5 Hyperlipidemia, unspecified; I12.9 Hypertensive chronic kidney disease with stage 1 through stage 4 chronic kidney disease, or unspecified chronic kidney disease; N18.3 Chronic kidney disease, stage 3 (moderate); G62.9 Polyneuropathy, unspecified; M79.7 Fibromyalgia; F32.9 Major depressive disorder, single episode, unspecified; Z87.891 Personal history of nicotine dependence; Z79.52 Long term (current) use of systemic steroids; Z79.82 Long term (current) use of aspirin; Z79.899 Other long term (current) drug therapy; Z86.73 Personal history of transient ischemic attack (TIA), and cerebral infarction without residual deficits; Z86.19 Personal history of other infectious and parasitic diseases; Z53.8 Procedure and treatment not carried out for other reasons
CPT/HCPCS: 99284; 96374; 96375; 96376; 96361 ×3; 36415; 80053; 83605; 85025; J1170

== ENCOUNTER → 2019-02-01 | Outpatient (CLI) | payer OTHER ==
--- NOTE | 2019-02-01 11:28 | CT ---
EXAMINATION TYPE: CT brain wo con DATE OF EXAM: 02/01/2019 COMPARISON: 04/16/2017 HISTORY: Head injury with LOC CT DLP: 1213 mGycm Automated exposure control for dose reduction was used. FINDINGS: Exam is limited by artifact particularly within the posterior fossa. The ventricles, basal cisterns and sulci overlying the cerebral convexities demonstrate mild enlargem ent. There is no evidence for intracranial hemorrhage or sulcal effacement. There is decreased attenuation about the periventricular white matter and deep white matter of both c erebral hemispheres, compatible with chronic small vessel ischemia. Differential diagnosis does inclu de demyelination. Changes of left chronic mastoiditis with probable mastoidectomy are stable from prior exam. Dural braydon cifications are seen. Low-attenuation the left basal ganglia stable compatible for remote lacunar inf arct. IMPRESSION: NONSPECIFIC WHITE MATTER CHANGES CORRELATE FOR REMOTE WHITE MATTER ISCHEMIA. IF CLINICALLY WARRANTED CORRELATE WITH MRI IF THERE IS CONCERN FOR ACUTE ISCHEMIA.
== END | disposition home or self-care (01) ==
LOC: RADCTMAIN 10:43
PROVIDERS: ATTEND Family Medicine
DX: Z09 Encounter for follow-up examination after completed treatment for conditions other than malignant neoplasm (principal); R90.89 Other abnormal findings on diagnostic imaging of central nervous system; Z87.828 Personal history of other (healed) physical injury and trauma
CPT/HCPCS: 70450

== ENCOUNTER → 2019-02-05 | Outpatient (CLI) | payer OTHER | END | disposition home or self-care (01) | LOC: LABWHC1 08:22 | PROVIDERS: ATTEND Internal Medicine Rheumatology | DX: M10.9 Gout, unspecified (principal) | CPT/HCPCS: 36415; 85652; 86140 ==

== ENCOUNTER → 2019-02-12 | Outpatient (CLI) | payer OTHER ==
[2019-02-13 14:28] LABS: LOG HCV IU/mL <1.08 (<1.08)
[2019-02-14 14:07] LABS: Hepatitis B Virus DNA Not detected (Not detected); Hepatitis B Virus DNA, Quant <10 IU/mL (<10); Log HBV IU/mL <1.00 (<1.00)
== END | disposition home or self-care (01) ==
LOC: LABWHC1 08:37
PROVIDERS: ATTEND Internal Medicine Gastroenterology
DX: Z48.23 Encounter for aftercare following liver transplant (principal); Z94.4 Liver transplant status
CPT/HCPCS: 36415; 87517; 87522

== ENCOUNTER 2019-02-17 13:05 | Emergency (ER) | payer OTHER ==
[2019-02-17 13:35] VITALS: RESP 18
[2019-02-17] MEDS ORDERED: SODIUM CHLORIDE 0.9% 500 ML 500 ML IV STA ×2 (14:03→15:19)
[2019-02-17 14:56] LABS: Anisocytosis Moderate; Basophils % (A) 0 %; Eosinophils % (A) 1 %; HCT 25.4 % (39.0-53.0); HGB 8.7 gm/dL (13.0-17.5); Hyperchromasia Moderate; Hypochromasia Slight; Lymphocytes # (A) 0.2 k/uL (1.0-4.8); Lymphocytes % (A) 5 %; MCH 25.4 pg (25.0-35.0); MCHC 34.4 g/dL (31.0-37.0); MCV 73.7 fL (80.0-100.0); Mean Platelet Volume 9.8; Microcytosis Marked; Monocytes # (A) 0.2 k/uL (0-1.0); Monocytes % (A) 5 %; Neutrophils % (A) 87 %; Poikilocytosis Marked; RBC 3.44 m/uL (4.30-5.90); RDW 22.3 % (11.5-15.5); WBC 4.6 k/uL (3.8-10.6)
[2019-02-17 15:06] LABS: Appearance,Urine Turbid (Clear); Bacteria,Urine Many /hpf; Bilirubin,Urine Negative (Negative); Blood,Urine Moderate (Negative); Color,Urine Yellow; Glucose,Urine (UA) 2+ (Negative); Ketones,Urine Negative (Negative); Leukocyte Esterase,Urine Large (Negative); Nitrite,Urine Positive (Negative); PH, Urine 5.5 (5.0-8.0); Protein,Urine 1+ (Negative); RBC,Urine 8 /hpf (0-5); Specific Gravity,Urine 1.013 (1.001-1.035); Urobilinogen,Urine <2.0 mg/dL (<2.0); WBC,Urine >182 /hpf (0-5)
[2019-02-17 15:14] LABS: ALT 18 U/L (21-72); AST 19 U/L (17-59); African American GFR (CKD) 41 (>60 ml/min/1.73 sqM); Albumin 3.8 g/dL (3.5-5.0); Alkaline Phosphatase 68 U/L (38-126); Amylase <30 U/L (30-110); Anion Gap 9 mmol/L; Blood Urea Nitrogen 41 mg/dL (9-20); Calcium 8.9 mg/dL (8.4-10.2); Carbon Dioxide 24 mmol/L (22-30); Chloride 107 mmol/L (98-107); Glucose 266 mg/dL (74-99); Potassium 4.2 mmol/L (3.5-5.1); Sodium 140 mmol/L (137-145); Total Bilirubin 2.2 mg/dL (0.2-1.3); Total Protein 6.2 g/dL (6.3-8.2)
[2019-02-17] MEDS ORDERED: cefTRIAXone IN SWFI 1,000 MG/10 ML SYRINGE IVP STA (15:18)
[2019-02-17 15:26] LABS: Platelet Count 58 k/uL (150-450)
--- NOTE | 2019-02-17 15:36 | CT ---
EXAMINATION TYPE: CT abdomen pelvis wo con DATE OF EXAM: 02/17/2019 COMPARISON: None HISTORY: 63-year-old male Midline pelvic pain. CT DLP: 806.8 mGycm. Automated exposure control for dose reduction was used. TECHNIQUE: Contiguous axial scanning of the abdomen and pelvis without IV contrast. Coronal and sagit roland reconstructions performed. FINDINGS: Heart upper limits of normal in size without pericardial effusion. Coronary vascular calcifications a re present. Mild peribronchial thickening suggestive of bronchitis or chronic asthma. No pleural effusion. Surgical clips in the region of the hepatic IVC. Very liver transplantation. Mild intrahepatic biliar y ductal dilatation probably chronic. Marked splenomegaly at 20.5 cm on coronal series. Prominent collateral vessels in the gastrohepatic ligament and splenic hilar region. Left adrenal gla nd not well delineated. Right adrenal gland and atrophic pancreas show no gross abnormality allowing for noncontrast technique. Bilateral nonobstructive renal calculi. Numerous calculi are present, the majority are dated. Largest measures 4 mm. No hydronephrosis seen on either side. No dilated small bowel, free fluid, or free air. Moderate atherosclerotic calcifications infrarenal abdominal aorta without aneurysm. No mesenteric or retroperitoneal lymphadenopathy identified. Normal appendix. Scattered mild stool particularly in the right side of the colon. Sigmoid diverticul osis without pericolonic inflammatory change. Pelvic phleboliths. Moderate circumferential wall thickening of the bladder with perivesicular fat st randing. Prostate gland measures 4.1 cm wide. No abnormal fluid collection in the pelvis. Bones: Mild degenerative change of the hips. Additional degenerative spurring at the SI joints. Bilat eral L3 pars defects with grade 1, nearly grade 2 anterolisthesis at L3-L4 and associated advanced de generative disc disease. IMPRESSION: 1. Findings suggest liver transplantation. Mild intrahepatic biliary ductal dilatation probably hander in yaya in this patient. Correlate with alkaline phosphatase and bilirubin levels. 2. Marked splenomegaly at 20.5 cm. Prominent upper abdominal collateral vessels. This may represent p ast sequela of versus persistent portal venous hypertension. 3. Punctate bilateral nonobstructive renal calculi measuring up to 4 mm. 4. Moderate circumferential bladder wall thickening with surrounding inflammatory fat stranding. Wei elate for cystitis. 5. Bilateral L3 pars defects with grade 1, nearly grade 2 anterolisthesis at L3-L4.
--- NOTE | 2019-02-17 15:49 | ED ---
General Adult HPI - General Source: patient, RN notes reviewed Mode of arrival: ambulatory Limitations: no limitations <Cheng Piper - Last Filed: 02/17/19 18:50> <Nadine Ramesh - Last Filed: 02/18/19 01:11> - General Chief complaint: Urogenital Stated complaint: Poss kidney stones Time Seen by Provider: 02/17/19 13:37 - History of Present Illness Initial comments: 63-year-old male with a past medical history of TIA with right-sided weakness, diabetes mellitus, fibromyalgia, hyperlipidemia, hypertension, chronic kidney disease, liver transplant one year ago presents to the emergency department for a chief complaint of suprapubic cramping and urinary frequency. Patient states over the past 2 weeks he has had a cramping sensation "below his abdomen." he says this comes and goes in waves. He states that he is concerned he has a kidney stone because he has had similar symptoms of urinary frequency in the past with kidney stones but this time does not have the back pain that has been previously associated. Denies any rectal pain. Denies any gross hematuria. Patient states he is also urinating much more frequently than normal. Denies any significant back pain.Patient has no other complaints at this time including shortness of breath, chest pain, nausea or vomiting, headache, or visual coffey ges. (Cheng Piper) - Related Data Home Medications Medication Instructions Recorded Confirmed Entecavir [Baraclude] 0.5 mg PO Q48H 03/10/14 02/17/19 Tamsulosin HCl [Flomax] 0.4 mg PO HS 04/14/15 02/17/19 Ursodiol [Actigall] 300 mg PO BID 06/14/18 02/17/19 Pregabalin [Lyrica] 75 mg PO BID 08/26/18 02/17/19 Atorvastatin [Lipitor] 20 mg PO DAILY 12/05/18 02/17/19 Cholecalciferol [Vitamin D3] 400 units PO DAILY 12/05/18 02/17/19 Everolimus [Zortress] 1.5 mg PO BID 12/05/18 02/17/19 Febuxostat [Uloric] 80 mg PO DAILY 12/05/18 02/17/19 Furosemide [Lasix] 40 mg PO DAILY 12/05/18 02/17/19 Methocarbamol [Robaxin] 500 mg PO QID PRN 12/05/18 02/17/19 [place]-3 Fatty Acids/Fish Oil [Fish 1 cap PO DAILY 12/05/18 02/17/19 Oil 1,000 mg Softgel] Omeprazole [PriLOSEC] 20 mg PO AC-BRKFST 12/05/18 02/17/19 Tacrolimus [Prograf] 6 mg PO BID 12/05/18 02/17/19 Aspirin 325 mg PO DAILY 01/09/19 02/17/19 Insulin Glargine,Hum.rec.anlog 35 unit SQ HS 02/17/19 02/17/19 [Basaglar Kwikpen U-100] Insulin Lispro [Admelog] See Protocol SQ AC-TID 02/17/19 02/17/19 Lurasidone [Latuda] 80 mg PO DAILY 02/17/19 02/17/19 predniSONE 10 mg PO DAILY 02/17/19 02/17/19 Previous Rx's Medication Instructions Recorded Cephalexin [Keflex] 500 mg PO Q6HR 14 Days cap 02/17/19 Allergies Allergy/AdvReac Type Severity Reaction Status Date / Time No Known Allergies Allergy Verified 02/17/19 14:20 Review of Systems ROS Other: All systems not noted in ROS Statement are negative. <Cheng Piper P - Last Filed: 02/17/19 18:50> ROS Other: All systems not noted in ROS Statement are negative. <Nadine Ramesh - Last Filed: 02/18/19 01:11> ROS Statement: Those systems with pertinent positive or pertinent negative responses have been documented in the HPI. 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, ear surgery as a child, cataracts, liver transplant [facility] February [facility], 2018 Past Anesthesia/Blood Transfusion Reactions: No Reported Reaction Additional Past Anesthesia/Blood Transfusion Reaction / Comment(s): past blood trnsfusions- no reacation Past Psychological History: Depression Smoking Status: Former smoker Past Alcohol Use History: None Reported Past Drug Use History: None Reported - Past Family History Father Family Medical History: Liver Disease Mother Family Medical History: Congestive Heart Failure (CHF) Additional Family Medical History / Comment(s): DDD, heart stents, <Cheng Piper P - Last Filed: 02/17/19 18:50> General Exam Limitations: no limitations General appearance: alert, in no apparent distress Head exam: Present: atraumatic, normocephalic, normal inspection Eye exam: Present: normal appearance, PERRL, EOMI. Absent: scleral icterus, conjunctival injection, periorbital swelling ENT exam: Present: normal exam, mucous membranes moist Neck exam: Present: normal inspection, full ROM. Absent: tenderness, meningismu s, lymphadenopathy Respiratory exam: Present: normal lung sounds bilaterally. Absent: respiratory distress, wheezes, rales, rhonchi, stridor Cardiovascular Exam: Present: regular rate, normal rhythm, normal heart sounds. Absent: systolic murmur, diastolic murmur, rubs, gallop, clicks GI/Abdominal exam: Present: soft, tenderness (Minimal suprapubic tenderness), normal bowel sounds. Absent: distended, guarding, rebound, rigid Rectal exam: Present: normal inspection, normal rectal tone, normal prostate. Absent: mass, prostate tenderness, prostate enlargement Back exam: Absent: CVA tenderness (R), CVA tenderness (L) Neurological exam: Present: alert, oriented X3, CN II-XII intact Psychiatric exam: Present: normal affect, normal mood <Cheng Piper P - Last Filed: 02/17/19 18:50> Course Vital Signs 02/17/19 02/17/19 02/17/19 13:31 18:00 19:02 Temperature 98.6 F 98.9 F Pulse Rate 77 71 65 Respiratory 18 16 18 Rate Blood Pressure 120/58 177/85 164/77 O2 Sat by Pulse 99 98 97 Oximetry Medical Decision Making - Lab Data Result diagrams: 02/17/19 14:29 02/17/19 14:29 <Cheng Piper P - Last Filed: 02/17/19 18:50> - Lab Data Result diagrams: 02/17/19 14:29 02/17/19 14:29 <Nadine Ramesh - Last Filed: 02/18/19 01:11> - Medical Decision Making Noble is a 63-year-old male with a past medical history of liver transplant, TIA, diabetes mellitus, fibromyalgia, hyperlipidemia, hypertension, chronic kidney disease, kidney stones who presents to the emergency department for a chief complaint of urinary frequency and suprapubic cramping. This has been ongoing for about 2 weeks. Denies any fevers at home. Denies any gross hematuria or melena/hematochezia. Exam patient patient is well-appearing but does have some minimal suprapubic tenderness. No CVA tenderness. CBC shows a hemoglobin of 8.7 which is chronic for patient as well as a platelet count of 58, likely related to patient's medications and appears chronic as well. CMP shows a creatinine of 1.95 which is patient's baseline. No evidence of tr ansaminitis. Urine does show greater than 182 white blood cells. Patient was given a dose of Rocephin IV and Keflex outpatient at this is sensitive to a culture in 2017. CT abdomen and pelvis did show multiple incidental findings including chronic intrahepatic biliary ductal dilation, splenomegaly, nonobstructive renal calculi, bilateral L3 pars defect. Discussed all of these with patient and he will follow up with primary care. She also has moderate circumferential bladder wall thickening with surrounding inflammatory fat stranding, correlate for cystitis. This is clinically correlated with patient's urinalysis. Rectal exam was performed to rule out a boggy or tender prostate, no enlarged prostate or tender prostate palpated, and no evidence for prostatitis. Patient was reevaluated, resting comfortably. Dr. Ramesh re- evaluated and discussed with patient. Offered patient admission for IV antibiotics which patient refuses. States he is sick of hospitals and would prefer to go home. At that time patient also complained of his left arm shaking. Therefore CT brain was ordered which showed no acute intracranial abnormality. Reevaluated patient, feeling well, requesting discharge. Patient will be discharged home with oral antibiotics. Given starter pack as well as pain medication. Patient states he is allowed to take Tylenol. He will return here if he has any worsening symptoms. He will follow up with urology and primary care. (Cheng Piper) I, Dr. Nadine Ramesh, Personally saw and examined the patient. I have reviewed and agree with the [employer] findings, including all diagnostic interpretations and treatment plans as written unless otherwise stated. I was present for the kirk portions of any procedures and the inclusive time noted for any critical care treatment. (Nadine Ramesh) - Lab Data Lab Results 02/17/19 02/17/19 02/17/19 Range/Units 14:29 14:29 14:29 WBC 4.6 (3.8-10.6) k/uL RBC 3.44 L (4.30-5.90) m/uL Hgb 8.7 L (13.0-17.5) gm/dL Hct 25.4 L (39.0-53.0) % MCV 73.7 L (80.0-100.0) fL MCH 25.4 (25.0-35.0) pg MCHC 34.4 (31.0-37.0) g/dL RDW 22.3 H (11.5-15.5) % Plt Count 58 L (150-450) k/uL Neutrophils % 87 % Lymphocytes % 5 % Monocytes % 5 % Eosinophils % 1 % Basophils % 0 % Neutrophils # 4.0 (1.3-7.7) k/uL Lymphocytes # 0.2 L (1.0-4.8) k/uL Monocytes # 0.2 (0-1.0) k/uL Eosinophils # 0.0 (0-0.7) k/uL Basophils # 0.0 (0-0.2) k/uL Manual Slide Review Performed Hypochromasia Slight Hyperchromasia Moderate Poikilocytosis Marked Anisocytosis Moderate Microcytosis Marked Sodium 140 (137-145) mmol/L Potassium 4.2 (3.5-5.1) mmol/L Chloride 107 (98-107) mmol/L Carbon Dioxide 24 (22-30) mmol/L Anion Gap 9 mmol/L BUN 41 H (9-20) mg/dL Creatinine 1.95 H (0.66-1.25) mg/dL Est GFR (CKD-EPI)AfAm 41 (>60 ml/min/1.73 sqM) Est GFR (CKD-EPI)NonAf 36 (>60 ml/min/1.73 sqM) Glucose 266 H (74-99) mg/dL Calcium 8.9 (8.4-10.2) mg/dL Total Bilirubin 2.2 H (0.2-1.3) mg/dL AST 19 (17-59) U/L ALT 18 L (21-72) U/L Alkaline Phosphatase 68 (38-126) U/L Total Protein 6.2 L (6.3-8.2) g/dL Albumin 3.8 (3.5-5.0) g/dL Amylase <30 L (30-110) U/L Lipase 117 (23-300) U/L Urine Color Yellow Urine Appearance Turbid (Clear) Urine pH 5.5 (5.0-8.0) Ur Specific [place] 1.013 (1.001-1.035) Urine Protein 1+ H (Negative) Urine Glucose (UA) 2+ H (Negative) Urine Ketones Negative (Negative) Urine Blood Moderate H (Negative) Urine Nitrite Positive (Negative) Urine Bilirubin Negative (Negative) Urine Urobilinogen <2.0 (<2.0) mg/dL Ur Leukocyte Esterase Large H (Negative) Urine RBC 8 H (0-5) /hpf Urine WBC >182 H (0-5) /hpf Urine WBC Clumps Many H (None) /hpf Urine Bacteria Many H (None) /hpf Disposition Is patient prescribed a controlled substance at d/c from ED?: No Time of Disposition: 16:46 <Cheng Piper P - Last Filed: 02/17/19 18:50> <Nadine Ramesh E - Last Filed: 02/18/19 01:11> Clinical Impression: Cystitis, Urinary tract infection Disposition: HOME SELF-CARE Condition: Good Instructions (If sedation given, give patient instructions): Urinary Tract Infection in Men (ED) Additional Instructions: These take antibiotic as directed. Please follow-up with urology and primary care in 1-2 days. Please return here to the emergency department if you have any worsening symptoms. Prescriptions: Cephalexin [Keflex] 500 mg PO Q6HR 14 Days cap Referrals: Ivan Merchant DO [Primary Care Provider] - 1-2 days Shon Almaraz MD [STAFF PHYSICIAN] - 1-2 days
--- NOTE | 2019-02-17 18:10 | CT ---
EXAMINATION TYPE: CT brain wo con DATE OF EXAM: 02/17/2019 COMPARISON: 02/01/2019 HISTORY: 63-year-old male with pain TECHNIQUE: Examination was done in axial plane without intravenous contrast. Coronal and sagittal r econstructions performed. CT DLP: 1039.4 mGycm Automated exposure control for dose reduction was used. FINDINGS: There is no evidence of acute intracranial hemorrhage, acute ischemic changes, mass, mass-effect, or extra-axial fluid collection. There is no effacement of cerebral sulci or basal subarachnoid cister ns. There is no hydrocephalus. There is no midline shift. -white matter distinction is preserv ed. Postresection changes involving the left mastoid process. Some opacification extends into the left mi ddle ear cavity. The middle ear ossicles are not well delineated. Paranasal sinuses appear clear. IMPRESSION: No acute intracranial abnormality seen. Postresection changes left mastoid process.
[2019-02-17] MEDS ORDERED: CEPHALEXIN 500MG STARTER PACK 4 CAP BTL PO STA (18:42)
[2019-02-17] MEDS ORDERED: ACET/COD 300 MG/30 MG STARTER PACK 6 TAB BTL PO STA (18:42)
[2019-02-17 19:03] VITALS: BP 164/77; PULSE 65; TEMP 98.9
== END 2019-02-17 19:02 | disposition home or self-care (01) ==
LOC: EC 13:05
DX: N30.90 Cystitis, unspecified without hematuria (principal); I12.9 Hypertensive chronic kidney disease with stage 1 through stage 4 chronic kidney disease, or unspecified chronic kidney disease; E11.22 Type 2 diabetes mellitus with diabetic chronic kidney disease; E11.40 Type 2 diabetes mellitus with diabetic neuropathy, unspecified; N18.3 Chronic kidney disease, stage 3 (moderate); E78.5 Hyperlipidemia, unspecified; F32.9 Major depressive disorder, single episode, unspecified; M10.9 Gout, unspecified; K74.60 Unspecified cirrhosis of liver; Z87.891 Personal history of nicotine dependence; Z79.82 Long term (current) use of aspirin; Z79.4 Long term (current) use of insulin; Z79.899 Other long term (current) drug therapy; Z79.52 Long term (current) use of systemic steroids; Z86.19 Personal history of other infectious and parasitic diseases; Z94.4 Liver transplant status
CPT/HCPCS: 36415; 80053; 82150; 83690; 85025; 81001; 87040; 87086; 87077; 87186; 70450; 74176; 99284; 96374; 96361 ×2; J0696

== ENCOUNTER 2019-03-21 07:52 | Day surgery (SDC) | payer OTHER ==
[2019-03-20 11:38] VITALS: BMI 30.1
[~2019-03-21 07:52] MED LIST: LACTATED RINGERS 1,000 ML IV SCH; LIDOCAINE 1% 20 ML VIAL (10MG/ML) FOR IV START INTRADERMA PRN
[2019-03-21] MEDS ORDERED: LIDOCAINE 1% 20 ML VIAL (10MG/ML) FOR IV START INTRADERMA ONE (08:24)
[2019-03-21 08:27] VITALS: TEMP 97.6
[2019-03-21 08:29] LABS: Glucose,Whole Blood 84 mg/dL (75-99)
[2019-03-21] MEDS ORDERED: LIDOCAINE 1% INJ 10MG/ML (20 ML MDV) ONE (08:32)
[2019-03-21] MEDS ORDERED: PROPOFOL 10 MG/ML 20 ML VIAL IV ONE (08:32)
[2019-03-21] MEDS ORDERED: PHENYLEPHRINE-0.9% NACL SYG 1 MG/10 ML SYRINGE ONE (08:32)
--- NOTE | 2019-03-21 09:02 | P.PCN ---
Date of Procedure: 03/21/19 Procedure(s) Performed: Brief history: Patient is a pleasant 63-year-old white male, scheduled for an elective upper endoscopy as well as colonoscopy as a part of evaluation of iron deficiency anemia. He is status post liver transplant a year ago at [facility] for cirrhosis related to chronic hepatitis B infection. He denies any GI symptoms. Does have progressive weight loss. Procedure performed: Esophagogastroduodenoscopy with biopsy Colonoscopy Preoperative diagnosis: Iron deficiency anemia Anesthesia: MAC Procedure: After informed consent was obtained from the patient was brought into the endoscopy unit and IV sedation was administered by anesthesia under continuous monitoring. Initially upper endoscopy was done. The Olympus GF 160 video endoscope was inserted inserted into the mouth and esophagus intubated without any difficulty and was gradually advanced into the stomach and duodenum and carefully examined. The bulb and second part of the duodenum appeared normal. The scope was then withdrawn into the stomach adequately insufflated with air and upon careful examination the antrum and body, cardia and fundus appeared normal. The scope was then withdrawn into the esophagus. The GE junction was located at 40 cm to the incisors. It appeared regular with no erythema erosions or ulcerations. Rest of the esophagus appeared normal. Patient tolerated the procedure well. At this time the patient continued to remain sedation. Initial digital rectal examination was normal. Olympus CF 160 video colonoscope was then inserted into the rectum and gradually advanced to the cecum without any difficulty. Careful examination was performed as the scope was gradually being withdrawn. The prep was fair. The cecum, ascending colon, transverse colon, descending colon, sigmoid colon and rectum appeared normal. Retroflexion was performed in the rectum and no lesions were noted. Patient tolerated the procedure well. Impression: 1. Upper endoscopy revealed small antral polyp status post biopsy. No evidence of gastric or esophageal varices. 2. Colonoscopy was within normal limits with no evidence of colitis or colorectal neoplasia Recommendations: Findings of this examination were discussed with the patient as well as family. He was advised to follow with the biopsy results. He can have a repeat screening colonoscopy in 10 years
[2019-03-21 09:10] VITALS: RESP 16
[2019-03-21 09:48] VITALS: BP 110/67; PULSE 76
== END 2019-03-21 10:22 | disposition home or self-care (01) ==
LOC: ORWHC2ENDO 07:52
PROVIDERS: ATTEND Internal Medicine Gastroenterology
DX: K29.50 Unspecified chronic gastritis without bleeding (principal); D50.9 Iron deficiency anemia, unspecified; Z94.4 Liver transplant status; K74.69 Other cirrhosis of liver; B18.1 Chronic viral hepatitis B without delta-agent; I10 Essential (primary) hypertension; E78.5 Hyperlipidemia, unspecified; Z87.891 Personal history of nicotine dependence; E11.9 Type 2 diabetes mellitus without complications; N28.9 Disorder of kidney and ureter, unspecified; I69.351 Hemiplegia and hemiparesis following cerebral infarction affecting right dominant side; M10.9 Gout, unspecified; Z79.4 Long term (current) use of insulin; Z79.899 Other long term (current) drug therapy
CPT/HCPCS: 88305; 45378; 43239; J2001; J2370; J2704

== ENCOUNTER → 2019-04-03 | Outpatient (CLI) | payer OTHER ==
[2019-04-03 17:42] LABS: C Reactive Protein 3.6 mg/dL (0.0-0.8); Uric Acid 6.2 mg/dL (3.7-8.7)
== END | disposition home or self-care (01) ==
LOC: LABWHC1 08:56
PROVIDERS: ATTEND Internal Medicine Rheumatology
DX: M10.09 Idiopathic gout, multiple sites (principal)
CPT/HCPCS: 36415; 84550; 85652; 86140

== ENCOUNTER → 2019-07-03 | Outpatient (CLI) | payer OTHER | END | disposition home or self-care (01) | LOC: LABWHC1 09:16 | PROVIDERS: ATTEND Family Medicine | DX: M10.9 Gout, unspecified (principal) | CPT/HCPCS: 36415; 84550 ==

== ENCOUNTER 2019-07-24 15:45 | Emergency (ER) | payer OTHER ==
[2019-07-24 15:53] VITALS: TEMP 98.3
[2019-07-24] MEDS ORDERED: HYDROmorphone 0.5 MG/0.5 ML SYRINGE IVP STA (16:07)
--- NOTE | 2019-07-24 16:24 | ED ---
General Adult HPI - General Chief complaint: Urogenital Stated complaint: right sided pain Time Seen by Provider: 07/24/19 15:58 Source: patient, RN notes reviewed, old records reviewed Mode of arrival: ambulatory Limitations: no limitations - History of Present Illness Initial comments: 64-year-old male presenting for evaluation of right lower abdominal pain and flank pain. Patient states she's had constant pain for the past 3 weeks. Patient has previous history of liver transplant, kidney failure, TIA, fibromyalgia, and kidney stones. He states this pain is not similar to previous kidney stones. It does not come and go. He's had no dysuria or hematuria. No fevers. No upper abdominal pain. No chest pain or dyspnea. No vomiting. He's had a bowel movement every 2-3 days which is normal for him. - Related Data Home Medications Medication Instructions Recorded Confirmed Entecavir [Baraclude] 0.5 mg PO Q48H 03/10/14 04/05/19 Tamsulosin HCl [Flomax] 0.8 mg PO HS 04/14/15 04/05/19 Ursodiol [Actigall] 300 mg PO BID 06/14/18 04/05/19 Pregabalin [Lyrica] 75 mg PO BID 08/26/18 04/05/19 Atorvastatin [Lipitor] 20 mg PO DAILY 12/05/18 04/05/19 Everolimus [Zortress] 0.75 mg PO BID 12/05/18 04/05/19 Febuxostat [Uloric] 40 mg PO DAILY 12/05/18 04/05/19 Furosemide [Lasix] 40 mg PO DAILY 12/05/18 04/05/19 Methocarbamol [Robaxin] 500 mg PO QID PRN 12/05/18 04/05/19 [place]-3 Fatty Acids/Fish Oil [Fish 1 cap PO DAILY 12/05/18 04/05/19 Oil 1,000 mg Softgel] Omeprazole [PriLOSEC] 20 mg PO AC-BRKFST 12/05/18 04/05/19 Insulin Glargine,Hum.rec.anlog 35 unit SQ HS 02/17/19 04/05/19 [Basaglar Kwikpen U-100] Insulin Lispro [Admelog] 15 unit SQ AC-TID 02/17/19 04/05/19 Lurasidone [Latuda] 80 mg PO DAILY 02/17/19 04/05/19 Albuterol Inhaler [Ventolin Hfa 1 - 2 puff INHALATION RT-Q6H PRN 03/20/19 04/05/19 Inhaler] Ferrous Sulfate [Feosol] 325 mg PO BID 03/20/19 04/05/19 Morphine Sulfate [Morphine Sulfate 15 mg PO Q12H 03/20/19 04/05/19 ER] Allergies Allergy/AdvReac Type Severity Reaction Status Date / Time pentamidine isethionate Allergy Anaphylaxis Verified 07/24/19 15:54 Review of Systems ROS Statement: Those systems with pertinent positive or pertinent negative responses have been documented in the HPI. ROS Other: All systems not noted in ROS Statement are negative. Past Medical History Past Medical History: CVA/TIA, Diabetes Mellitus, Fibromyalgia, Hearing Disorder / Deafness, Hyperlipidemia, Hypertension, Liver Disease, Renal Disease Additional Past Medical History / Comment(s): neck/back pain,neuropathy, hep B history (had liver transplant and infusion post transplant), "non alcoholic"cirrhosis of liver,past uti, past stroke-affected right side, CKD stage 3, gout, recent admission last week to [facility] w/low platelets, anemia, kidney stones History of Any Multi-Drug Resistant Organisms: None Reported Past Surgical History: Cholecystectomy, Tonsillectomy Additional Past Surgical History / Comment(s): 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, ear surgery as a child, cataracts, liver transplant at [facility] 02-02-18 Past Anesthesia/Blood Transfusion Reactions: No Reported Reaction Additional Past Anesthesia/Blood Transfusion Reaction / Comment(s): past blood transfusions- no reaction Past Psychological History: Depression Smoking Status: Former smoker Past Alcohol Use History: None Reported Past Drug Use History: None Reported - Past Family History Father Family Medical History: Liver Disease Mother Family Medical History: Congestive Heart Failure (CHF) Additional Family Medical History / Comment(s): DDD, heart stents, General Exam Limitations: no limitations General appearance: alert, in no apparent distress Head exam: Present: atraumatic, normocephalic Eye exam: Present: normal appearance, PERRL ENT exam: Present: normal exam Neck exam: Present: normal inspection. Absent: tenderness, meningismus Respiratory exam: Present: normal lung sounds bilaterally. Absent: respiratory distress Cardiovascular Exam: Present: regular rate, normal rhythm GI/Abdominal exam: Present: soft, tenderness (Right lower quadrant, right lateral flank). Absent: distended, guarding, rebound Extremities exam: Present: normal inspection, normal capillary refill. Absent: pedal edema Back exam: Absent: CVA tenderness (R), muscle spasm, paraspinal tenderness, vertebral tenderness Neurological exam: Present: alert, oriented X3, CN II-XII intact. Absent: motor sensory deficit Psychiatric exam: Present: normal affect, normal mood Skin exam: Present: warm, dry, intact. Absent: cyanosis, diaphoretic Course Vital Signs 07/24/19 15:50 Temperature 98.3 F Pulse Rate 67 Respiratory 16 Rate Blood Pressure 138/56 O2 Sat by Pulse 100 Oximetry Medical Decision Making - Medical Decision Making 64-year-old male with right flank pain. Multiple medical conditions. Workup in the emergency department reveals pancytopenia which is at baseline for this patient. White count 2.9 from 2.7. Hemoglobin stable, platelets of 50 which is stable. Creatinine is 1.63 which is stable for this patient. Urinalysis negative for hematuria. CT performed which shows chronic findings, nephrocalcinosis, splenomegaly, no acute findings in the abdomen. Patient was previously on oral morphine but he has discontinued this recently. He will reinitiate the morphine he has at home while awaiting reevaluation by his primary care physician. He has an appointment in 3 days with his primary care physician. Pain significantly improved in the emergency department. - Lab Data Result diagrams: 07/24/19 16:30 07/24/19 16:30 Lab Results 07/24/19 07/24/19 07/24/19 Range/Units 16:30 16:30 16:30 WBC 2.9 L (3.8-10.6) k/uL RBC 3.55 L (4.30-5.90) m/uL Hgb 9.8 L (13.0-17.5) gm/dL Hct 28.9 L (39.0-53.0) % MCV 81.4 (80.0-100.0) fL MCH 27.7 (25.0-35.0) pg MCHC 34.0 (31.0-37.0) g/dL RDW 20.6 H (11.5-15.5) % Plt Count 50 L (150-450) k/uL Neutrophils % 65 % Lymphocytes % 23 % Monocytes % 7 % Eosinophils % 2 % Basophils % 0 % Neutrophils # 1.9 (1.3-7.7) k/uL Lymphocytes # 0.7 L (1.0-4.8) k/uL Monocytes # 0.2 (0-1.0) k/uL Eosinophils # 0.1 (0-0.7) k/uL Basophils # 0.0 (0-0.2) k/uL Hyperchromasia Moderate Poikilocytosis Marked Anisocytosis Moderate Microcytosis Slight Sodium 142 (137-145) mmol/L Potassium 4.0 (3.5-5.1) mmol/L Chloride 108 H (98-107) mmol/L Carbon Dioxide 29 (22-30) mmol/L Anion Gap 5 mmol/L BUN 20 (9-20) mg/dL Creatinine 1.63 H (0.66-1.25) mg/dL Est GFR (CKD-EPI)AfAm 51 (>60 ml/min/1.73 sqM) Est GFR (CKD-EPI)NonAf 44 (>60 ml/min/1.73 sqM) Glucose 109 H (74-99) mg/dL Calcium 9.0 (8.4-10.2) mg/dL Total Bilirubin 3.1 H (0.2-1.3) mg/dL AST 30 (17-59) U/L ALT 9 (4-49) U/L Alkaline Phosphatase 63 (38-126) U/L Total Protein 6.1 L (6.3-8.2) g/dL Albumin 3.9 (3.5-5.0) g/dL Urine Color Yellow Urine Appearance Clear (Clear) Urine pH 6.0 (5.0-8.0) Ur Specific [place] 1.010 (1.001-1.035) Urine Protein Negative (Negative) Urine Glucose (UA) Negative (Negative) Urine Ketones Negative (Negative) Urine Blood Negative (Negative) Urine Nitrite Negative (Negative) Urine Bilirubin Negative (Negative) Urine Urobilinogen <2.0 (<2.0) mg/dL Ur Leukocyte Esterase Negative (Negative) Disposition Clinical Impression: History of hepatitis B, Pancytopenia, Abdominal pain Disposition: HOME SELF-CARE Condition: Fair Instructions (If sedation given, give patient instructions): Abdominal Pain (ED) Is patient prescribed a controlled substance at d/c from ED?: No Referrals: Ivan Merchant DO [Primary Care Provider] - 1-2 days Time of Disposition: 18:00
[2019-07-24 16:47] LABS: Appearance,Urine Clear (Clear); Bilirubin,Urine Negative (Negative); Blood,Urine Negative (Negative); Color,Urine Yellow; Glucose,Urine (UA) Negative (Negative); Ketones,Urine Negative (Negative); Leukocyte Esterase,Urine Negative (Negative); Nitrite,Urine Negative (Negative); Protein,Urine Negative (Negative); Urobilinogen,Urine <2.0 mg/dL (<2.0)
[2019-07-24 16:56] LABS: Albumin 3.9 g/dL (3.5-5.0); Total Bilirubin 3.1 mg/dL (0.2-1.3); Total Protein 6.1 g/dL (6.3-8.2)
[2019-07-24 17:11] LABS: Anisocytosis Moderate; Basophils % (A) 0 %; Eosinophils # (A) 0.1 k/uL (0-0.7); Eosinophils % (A) 2 %; HCT 28.9 % (39.0-53.0); HGB 9.8 gm/dL (13.0-17.5); Hyperchromasia Moderate; Lymphocytes # (A) 0.7 k/uL (1.0-4.8); Lymphocytes % (A) 23 %; MCH 27.7 pg (25.0-35.0); MCV 81.4 fL (80.0-100.0); Mean Platelet Volume 9.7; Microcytosis Slight; Monocytes # (A) 0.2 k/uL (0-1.0); Monocytes % (A) 7 %; Neutrophils # (A) 1.9 k/uL (1.3-7.7); Neutrophils % (A) 65 %; Poikilocytosis Marked; RBC 3.55 m/uL (4.30-5.90); RDW 20.6 % (11.5-15.5); WBC 2.9 k/uL (3.8-10.6)
[2019-07-24 17:12] LABS: Platelet Count 50 k/uL (150-450)
--- NOTE | 2019-07-24 17:35 | CT ---
EXAMINATION TYPE: CT abdomen pelvis wo con DATE OF EXAM: 07/24/2019 COMPARISON: 02/17/2019 HISTORY: RLQ pain CT DLP: 867.8 mGycm Automated exposure control for dose reduction was used. Multiple axial sections were obtained from the diaphragm to the floor the pelvis with no contrast. There is some pleural fluid and atelectasis left lung base. There is very small right pleural effusio n. There is no pericardial effusion. Spleen is markedly enlarged and measures 20 cm. Liver shows no focal defect. Stomach is intact. There are multiple varicose veins at the splenic hilum. There are varicose veins at the gastroesophageal j unction. There is no adrenal mass. There is extensive calcification in both kidneys at the renal papilla. This is consistent with nephrocalcinosis. There is no retroperitoneal adenopathy. Abdominal aorta is athe romatous. Ureters are not dilated. Bladder distends smoothly. There is no inguinal hernia. There is no mesenteric edema. There is no evidence of a bowel obstruction. There is no ascites or leah e air. There is a first-degree L3-4 spondylolisthesis. There is bilateral L3 spondylolysis. There is no lumb ar compression fracture. There is mild anterior wedging of T11 vertebra 20%. IMPRESSION: Severe splenomegaly similar to old exam. Splenic and esophageal varices probably related to portal ve nous hypertension. No discrete liver mass. Unchanged. Renal calcification consistent with nephrocalcinosis or medullary sponge kidney unchanged. No renal o bstruction. Unchanged. Small pleural effusions and left basilar mild atelectasis appear new compared to old exam.
[2019-07-24] MEDS ORDERED: HYDROmorphone 1 MG/ML 1 ML SYRINGE IVP STA (17:58)
[2019-07-24 18:11] VITALS: BP 131/67; PULSE 61; RESP 18
== END 2019-07-24 18:30 | disposition home or self-care (01) ==
LOC: EC 15:45
DX: D61.818 Other pancytopenia (principal); R10.31 Right lower quadrant pain; Z86.19 Personal history of other infectious and parasitic diseases; E83.59 Other disorders of calcium metabolism; N29 Other disorders of kidney and ureter in diseases classified elsewhere; R16.1 Splenomegaly, not elsewhere classified; E11.22 Type 2 diabetes mellitus with diabetic chronic kidney disease; I12.9 Hypertensive chronic kidney disease with stage 1 through stage 4 chronic kidney disease, or unspecified chronic kidney disease; N18.3 Chronic kidney disease, stage 3 (moderate); E11.40 Type 2 diabetes mellitus with diabetic neuropathy, unspecified; E78.5 Hyperlipidemia, unspecified; Z79.4 Long term (current) use of insulin; Z79.899 Other long term (current) drug therapy; Z88.8 Allergy status to other drugs, medicaments and biological substances; Z94.4 Liver transplant status; Z87.891 Personal history of nicotine dependence; Z86.73 Personal history of transient ischemic attack (TIA), and cerebral infarction without residual deficits
CPT/HCPCS: 36415; 80053; 85025; 81003; 74176; 99284; 96374; 96376; J1170 ×2

== ENCOUNTER → 2019-11-19 | Outpatient (CLI) | payer OTHER | END | disposition home or self-care (01) | LOC: LABWHC1 09:37 | PROVIDERS: ATTEND Family Medicine | DX: K74.69 Other cirrhosis of liver (principal); E53.8 Deficiency of other specified B group vitamins | CPT/HCPCS: 36415; 80197; 82607 ==

== ENCOUNTER → 2020-02-16 | Outpatient (CLI) | payer OTHER ==
--- NOTE | 2020-02-16 13:45 | CT ---
EXAMINATION TYPE: CT chest wo con DATE OF EXAM: 02/16/2020 COMPARISON: 07/24/2019 CT abdomen. HISTORY: follow up lung nodule CT DLP: 431.9 mGycm. Automated Exposure Control for Dose Reduction was Utilized. TECHNIQUE: CT scan of the thorax is performed without IV contrast. FINDINGS: LUNGS: The lungs are grossly clear, there is no concerning parenchymal mass or nodule identified. T here is no pleural effusion or pneumothorax seen. The tracheobronchial tree is patent. MEDIASTINUM: Lack of IV contrast is noted to limit evaluation for mediastinal and especially hilar ad enopathy. There are no definitive greater than 1 cm hilar or mediastinal lymph nodes. No cardiomega ly or pericardial effusion is seen. OTHER: Hypertrophic and degenerative changes of the spine. The spleen is enlarged measuring 19 cm. Th ere is pneumobilia and evidence of previous cholecystectomy correlate clinically. Trace of gynecomast ia. Punctate nonobstructing bilateral renal calculi. IMPRESSION: 1. No acute intrathoracic process. No sizable pulmonary nodule. 2. Cardiomegaly with coronary artery atherosclerotic disease correlate clinically. 3. Marked splenomegaly measuring 19 cm. The splenic varices noted correlate for portal hypertension, chronic liver disease, or cirrhosis. 4. Pneumobilia new from prior CT scan of 07/24/2019. Correlate clinically.
== END | disposition home or self-care (01) ==
LOC: RADCTMAIN 10:51
PROVIDERS: ATTEND Transplant Surgery
DX: I25.10 Atherosclerotic heart disease of native coronary artery without angina pectoris (principal); I51.7 Cardiomegaly; Z94.4 Liver transplant status; C22.0 Liver cell carcinoma
CPT/HCPCS: 71250

== ENCOUNTER → 2020-03-17 | Outpatient (CLI) | payer OTHER ==
[2020-03-17 17:47] LABS: Hemoglobin A1C 4.1 % (4.0-6.0)
== END | disposition home or self-care (01) ==
LOC: LABWHC1 09:01
PROVIDERS: ATTEND Family Medicine
DX: E11.42 Type 2 diabetes mellitus with diabetic polyneuropathy (principal)
CPT/HCPCS: 36415; 83036

== ENCOUNTER 2021-01-10 20:40 | Emergency (ER) | payer MEDICARE, OTHER ==
[2021-01-10 20:45] VITALS: BP 159/78; PULSE 81; RESP 18; TEMP 98.2
[2021-01-10] MEDS ORDERED: DIPH,PERTUS(ACELL)TETVAC-LF 0.5 ML VIAL IM ONE (20:58)
--- NOTE | 2021-01-10 21:01 | ED ---
Wound/Laceration HPI - General Chief Complaint: Wound/Laceration Stated Complaint: R leg laceration Time Seen by Provider: 01/10/21 20:47 Source: patient Mode of arrival: wheelchair Limitations: no limitations - History of Present Illness Initial Comments: 65 year-old male patient presents for evaluation of laceration to the right lower leg. Patient states he cut it on the car door yesterday afternoon before 8pm. States that he did clean it and applied dressing. A friend told him he should get it checked. He was able to control the bleeding. Does ambulate without pain or difficulty. Currently taking clindamycin for dental abscess. States his tetanus vaccine is not up to date. Denies any other injuries or concerns. - Related Data Home Medications Medication Instructions Recorded Confirmed Entecavir [Baraclude] 0.5 mg PO Q48H 03/10/14 04/05/19 Tamsulosin HCl [Flomax] 0.8 mg PO HS 04/14/15 04/05/19 ursodioL [Actigall] 300 mg PO BID 06/14/18 04/05/19 Pregabalin [Lyrica] 75 mg PO BID 08/26/18 04/05/19 Atorvastatin [Lipitor] 20 mg PO DAILY 12/05/18 04/05/19 Everolimus [Zortress] 0.75 mg PO BID 12/05/18 04/05/19 Febuxostat [Uloric] 40 mg PO DAILY 12/05/18 04/05/19 Furosemide [Lasix] 40 mg PO DAILY 12/05/18 04/05/19 Methocarbamol [Robaxin] 500 mg PO QID PRN 12/05/18 04/05/19 [place]-3 Fatty Acids/Fish Oil [Fish 1 cap PO DAILY 12/05/18 04/05/19 Oil 1,000 mg Softgel] Omeprazole [PriLOSEC] 20 mg PO AC-BRKFST 12/05/18 04/05/19 Insulin Glargine,Hum.rec.anlog 35 unit SQ HS 02/17/19 04/05/19 [Basaglar Kwikpen U-100] Insulin Lispro [Admelog] 15 unit SQ AC-TID 02/17/19 04/05/19 Lurasidone [Latuda] 80 mg PO DAILY 02/17/19 04/05/19 Albuterol Inhaler (Mhu) [Ventolin 1 - 2 puff INHALATION RT-Q6H PRN 03/20/19 04/05/19 Hfa Inhaler] Ferrous Sulfate [Feosol] 325 mg PO BID 03/20/19 04/05/19 Morphine Sulfate [Morphine Sulfate 15 mg PO Q12H 03/20/19 04/05/19 ER] Allergies Allergy/AdvReac Type Severity Reaction Status Date / Time pentamidine isethionate Allergy Anaphylaxis Verified 01/10/21 20:45 Review of Systems ROS Statement: Those systems with pertinent positive or pertinent negative responses have been documented in the HPI. ROS Other: All systems not noted in ROS Statement are negative. Past Medical History Past Medical History: CVA/TIA, Diabetes Mellitus, Fibromyalgia, Hearing Disorder / Deafness, Hyperlipidemia, Hypertension, Liver Disease, Renal Disease Additional Past Medical History / Comment(s): neck/back pain,neuropathy, hep B history (had liver transplant and infusion post transplant), "non alcoholic"cirrhosis of liver,past uti, past stroke-affected right side, CKD stage 3, gout, recent admission last week to [facility] w/low platelets, anemia, kidney stones History of Any Multi-Drug Resistant Organisms: None Reported Past Surgical History: Cholecystectomy, Tonsillectomy Additional Past Surgical History / Comment(s): 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, ear surgery as a child, cataracts, liver transplant at [facility] 02-02-18 Past Anesthesia/Blood Transfusion Reactions: No Reported Reaction Additional Past Anesthesia/Blood Transfusion Reaction / Comment(s): past blood transfusions- no reaction Past Psychological History: Depression Smoking Status: Former smoker Past Alcohol Use History: None Reported Past Drug Use History: None Reported - Past Family History Father Family Medical History: Liver Disease Mother Family Medical History: Congestive Heart Failure (CHF) Additional Family Medical History / Comment(s): DDD, heart stents, General Exam Limitations: no limitations General appearance: alert, in no apparent distress, other (This is a well- developed, well-nourished adult male patient in no acute distress. Vital signs upon presentation temperature 98.2F, pulse 81, respirations 18, blood pressure 159/78, pulse ox 98% on room air.) Respiratory exam: Present: normal lung sounds bilaterally. Absent: respiratory distress, wheezes, rales, rhonchi, stridor Cardiovascular Exam: Present: regular rate, normal rhythm, normal heart sounds. Absent: systolic murmur, diastolic murmur, rubs, gallop, clicks Extremities exam: Present: full ROM, normal capillary refill, other (6 cm flap laceration noted to the right lower leg. No active bleeding. No surrounding erythema. Skin is otherwise pink, warm, dry. Cap refill less than 3 seconds. Pedal and posttibial pulses 2+.). Absent: normal inspection, tenderness, pedal edema, joint swelling, calf tenderness Course Vital Signs 01/10/21 20:41 Temperature 98.2 F Pulse Rate 81 Respiratory 18 Rate Blood Pressure 159/78 O2 Sat by Pulse 98 Oximetry Medical Decision Making - Medical Decision Making 65-year-old male patient presents to the emergency department today for evaluation of laceration to the right lower leg. Injury occurred yesterday before 8 PM. Physical examination did reveal 6 cm flap laceration/skin tear to the right lower leg. No active bleeding. Did discuss that it is over the recommended timeframe for closure. We did discuss acute wound care. He is taking clindamycin currently for dental abscess. We did update his tetanus vaccine. The be discharged to follow-up with the primary care physician for recheck in 1-2 days. Return parameters were discussed in detail. He verbalizes understanding and agrees with this plan. Case discussed with my attending Dr. Rojas. Disposition Clinical Impression: Laceration of right lower leg Disposition: HOME SELF-CARE Condition: Good Instructions (If sedation given, give patient instructions): Acute Wound Care (ED), Laceration Without Closure (ED) Additional Instructions: -Cleanse wound twice daily with warm water and antibacterial soap. -Cover with antibiotic ointment and dressing. -Continue home antibiotics. -Follow up with your primary care physician for recheck in 1-2 days. Return to emergency for any new, worsening, or concerning symptoms. Is patient prescribed a controlled substance at d/c from ED?: No Referrals: Ivan Merchant DO [Primary Care Provider] - 1-2 days Time of Disposition: 21:01
== END 2021-01-10 21:12 | disposition home or self-care (01) ==
LOC: EC 20:40
DX: S81.811A Laceration without foreign body, right lower leg, initial encounter (principal); E11.22 Type 2 diabetes mellitus with diabetic chronic kidney disease; E11.40 Type 2 diabetes mellitus with diabetic neuropathy, unspecified; I12.9 Hypertensive chronic kidney disease with stage 1 through stage 4 chronic kidney disease, or unspecified chronic kidney disease; N18.30 Chronic kidney disease, stage 3 unspecified; E78.5 Hyperlipidemia, unspecified; M79.7 Fibromyalgia; M10.9 Gout, unspecified; F32.9 Major depressive disorder, single episode, unspecified; Z79.4 Long term (current) use of insulin; Z79.51 Long term (current) use of inhaled steroids; Z79.899 Other long term (current) drug therapy; Z86.73 Personal history of transient ischemic attack (TIA), and cerebral infarction without residual deficits; Z87.891 Personal history of nicotine dependence; Z23 Encounter for immunization; W26.8XXA Contact with other sharp object(s), not elsewhere classified, initial encounter
CPT/HCPCS: 90471; 90715; 99283

== ENCOUNTER → 2021-04-15 | Outpatient (CLI) | payer MEDICARE ==
[2021-04-15 13:41] LABS: Basophils # (A) 0.03 X 10*3/uL (0.00-0.10); Eosinophils # (A) 0.03 X 10*3/uL (0.04-0.35); HCT 42.2 % (39.6-50.0); HGB 13.8 g/dL (13.0-17.0); MCH 29.5 pg (27.0-32.0); MCHC 32.7 g/dL (32.0-37.0); MCV 90.2 fL (80.0-97.0); Mean Platelet Volume 10.6 fL (9.5-12.2); Monocytes # (A) 0.22 X 10*3/uL (0.20-1.00); Neutrophils # (A) 1.74 X 10*3/uL (1.80-7.70); Neutrophils % (A) 55.4 %; Platelet Count 54 X 10*3/uL (140-440); RBC 4.68 X 10*6/uL (4.40-5.60); RDW 22.1 % (11.5-14.5); WBC 3.14 X 10*3/uL (4.50-10.00)
[2021-04-15 19:36] LABS: Albumin 4.1 g/dL (3.80-4.90); Albumin/Globulin Ratio 2.05 (1.60-3.17); Alpha Fetoprotein, Tumor Mkr <2.5 ng/mL (0.0-7.9); Anion Gap 6.4 mmol/L (4.00-12.00); BUN/Creat Ratio 15.88 Ratio (12.00-20.00); Bilirubin, Conjugated 0.7 mg/dL (0.20-0.40); Bilirubin,Unconjugated 4.6 mg/dL; Calcium 8.9 mg/dL (8.7-10.3); Carbon Dioxide 25.6 mmol/L (21.6-31.8); Magnesium 1.9 mg/dL (1.5-2.4); Non-African American GFR(CKD) 41.4 (60.0-200.0); Total Bilirubin 5.3 mg/dL (0.2-1.2); Total Protein 6.1 g/dL (6.2-8.2)
[2021-04-15 20:24] LABS: Hepatitis B Surface AB- Quant <3.5 mIU/mL; Hepatitis B Surface Antibody Non-Reactive (Non-Reactive)
[2021-04-16 15:48] LABS: Tacrolimus (FK506) 3.5 ng/mL (5.0-20.0)
[2021-04-16 16:12] LABS: Hepatitis B Virus DNA Not detected (Not detected); Hepatitis B Virus DNA, Quant <10 IU/mL (<10); Log HBV IU/mL <1.00 (<1.00)
== END | disposition home or self-care (01) ==
LOC: LABWHC1 07:07
PROVIDERS: ATTEND Internal Medicine Gastroenterology
DX: F41.1 Generalized anxiety disorder (principal); R17 Unspecified jaundice; Z94.4 Liver transplant status
CPT/HCPCS: 36415; 80048; 80076; 80197; 82105; 82465; 83735; 85025; 86706; 87517

== ENCOUNTER → 2021-07-21 | Outpatient (CLI) | payer MEDICARE, OTHER ==
--- NOTE | 2021-07-21 12:37 | CT ---
EXAMINATION TYPE: CT chest wo con DATE OF EXAM: 07/21/2021 COMPARISON: 02/16/2020 HISTORY: Hepatocellular CT DLP: 556.[address] of the chest was performed with lung and mediastinal window settings submitted. The la ck of contrast limits evaluation of the vascular, mediastinal and parenchymal structures including th e upper abdomen. LUNGS: The lungs are clear and free of infiltrate. No atelectasis. No pulmonary nodule or mass is de tected. No pleural effusion. No CT evidence of interstitial lung disease. Mild pleural thickening l eft lung base. MEDIASTINUM/GILBERTO: Thoracic aorta is of normal caliber with limited evaluation given lack of contrast . The heart is not enlarged. No evidence for mediastinal mass. No lymph nodes greater than 1cm. UPPER ABDOMEN: Masslike area mid liver with pneumobilia. Correlate with CT of the abdomen. OTHER: No significant other abnormality. IMPRESSION: 1. No evidence for metastatic disease to the chest.
== END | disposition home or self-care (01) ==
LOC: RADCTMAIN 11:43
DX: C22.0 Liver cell carcinoma (principal)
CPT/HCPCS: 71250

== ENCOUNTER → 2022-12-28 | Outpatient (CLI) | payer MEDICARE, OTHER ==
--- NOTE | 2022-12-28 18:06 | XR ---
EXAMINATION TYPE: XR lumbar spine 2 or 3V DATE OF EXAM: 12/28/2022 CLINICAL HISTORY: M54.50, right-sided lower back pain after 2 falls. TECHNIQUE: Frontal and lateral views of the lumbar spine with additional close-up L5-S1 lateral view. COMPARISON: MRI lumbar spine 02/16/2011 CT abdomen pelvis 07/24/2019 FINDINGS: There are 5 lumbar type vertebral bodies identified. No acute fracture. Vertebral body heights are wi thin normal limits. Similar grade 1 anterolisthesis of L3 on L4. Degenerative disc disease with disc space narrowing, endplate sclerosis, and anterior osteophytosis most pronounced at L3-L4. Multilevel facet arthropathy. The overlying soft tissue appears unremarkable. Atherosclerotic calcification of t he aorta. Surgical clips in right upper quadrant. IMPRESSION: 1. No acute fracture is seen in the lumbar spine. 2. Mild multilevel degenerative disease and facet arthropathy. 3. Stable grade 1 anterolisthesis of L3 on L4.
== END | disposition home or self-care (01) ==
LOC: RADXRMAIN 16:23
PROVIDERS: ATTEND Family Medicine
DX: M51.36 Other intervertebral disc degeneration, lumbar region (principal); M47.816 Spondylosis without myelopathy or radiculopathy, lumbar region; M43.16 Spondylolisthesis, lumbar region
CPT/HCPCS: 72100

== ENCOUNTER → 2023-03-17 | Outpatient (CLI) | payer MEDICARE, OTHER ==
--- NOTE | 2023-03-17 16:58 | US ---
EXAMINATION TYPE: US venous doppler duplex LE RT DATE OF EXAM: 03/17/2023 4:55 PM COMPARISON: Right lower extremity venous ultrasound 12/05/2018 CLINICAL INDICATION: Male, 67 years old with history of R60.0 EDEMA; right leg pain and edema SIDE PERFORMED: right TECHNIQUE: The lower extremity deep venous system is examined utilizing real time linear array sonog misty with graded compression, doppler sonography and color-flow sonography. VESSELS IMAGED: Common Femoral Vein Deep Femoral Vein Greater Saphenous Vein * Femoral Vein Popliteal Vein Small Saphenous Vein * Proximal Calf Veins (* superficial vessels) Grayscale, color doppler, spectral doppler imaging performed of the deep veins of the lower extremiti es. There is normal flow, compressibility, vascular waveforms. Right Leg: No evidence of DVT as visualized. IMPRESSION: No ultrasound evidence for deep venous thrombosis of the right lower extremity.
== END | disposition home or self-care (01) ==
LOC: RADUSWWP 16:26
PROVIDERS: ATTEND Family Medicine
DX: M79.604 Pain in right leg (principal); R60.0 Localized edema

== ENCOUNTER → 2023-08-01 | Outpatient (CLI) | payer MEDICARE, OTHER ==
[2023-08-01 15:22] LABS: Alpha Fetoprotein, Tumor Mkr <3.00 ng/mL (0.00-7.90)
[2023-08-01 15:24] LABS: BUN/Creat Ratio 15.33 Ratio (12.00-20.00); Calcium 9.2 mg/dL (8.7-10.3); Carbon Dioxide 25.3 mmol/L (21.6-31.8); Chloride 107 mmol/L (96-109); Glucose 143 mg/dL (70-110); Magnesium 2.1 mg/dL (1.5-2.4); Potassium 3.7 mmol/L (3.5-5.5); Sodium 145 mmol/L (135-145)
[2023-08-01 15:25] LABS: ALT 8 U/L (10-49); AST 14 U/L (14-35); Albumin 4.2 g/dL (3.8-4.9); Albumin/Globulin Ratio 2.33 Ratio (1.60-3.17); Alkaline Phosphatase 74 U/L (41-126); Bilirubin, Conjugated 0.45 mg/dL (0.20-0.40); Bilirubin,Unconjugated 1.15 mg/dL (0.20-1.00); Globulin 1.8 g/dL (1.6-3.3); Total Bilirubin 1.6 mg/dL (0.3-1.2)
[2023-08-01 15:37] LABS: Hepatitis B Surface AB- Quant 3.5 mIU/mL; Hepatitis B Surface Antigen Nonreactive
[2023-08-01 18:10] LABS: Basophils # (A) 0.03 X 10*3/uL (0.00-0.10); Basophils % (A) 0.8 %; Eosinophils # (A) 0.03 X 10*3/uL (0.04-0.35); Eosinophils % (A) 0.8 %; HCT 40.3 % (39.6-50.0); HGB 13.7 g/dL (13.0-17.0); Immature Platelet Fraction 6.1 % (1.1-6.1); Lymphocytes # (A) 0.74 X 10*3/uL (0.90-5.00); Lymphocytes % (A) 19.9 %; MCH 30.2 pg (27.0-32.0); MCV 88.8 FL (80.0-97.0); Mean Platelet Volume 11.6 FL (9.5-12.2); Monocytes # (A) 0.26 X 10*3/uL (0.20-1.00); NRBC Per 100 WBC 0 X 10*3/uL (0.00-0.01); Neutrophils # (A) 2.61 X 10*3/uL (1.80-7.70); Neutrophils % (A) 70.4 %; Platelet Count 59 X 10*3/uL (140-440); RBC 4.54 X 10*6/uL (4.40-5.60); RDW 19.9 % (11.5-14.5); WBC 3.71 X 10*3/uL (4.50-10.00)
[2023-08-02 08:24] LABS: Tacrolimus (FK506) 3.3 ng/mL (5.0-20.0)
[2023-08-02 11:02] LABS: Hepatitis B Virus DNA Not detected (Not detected); Hepatitis B Virus DNA, Quant <10 IU/mL (<10); Log HBV IU/mL <1.00 (<1.00)
== END | disposition home or self-care (01) ==
LOC: LABWHC1 08:05
PROVIDERS: ATTEND Internal Medicine
DX: D84.9 Immunodeficiency, unspecified (principal); Z94.4 Liver transplant status
CPT/HCPCS: 36415; 80048; 80076; 80197; 82105; 82465; 83735; 85025; 86706; 87340; 87517

== ENCOUNTER → 2023-11-15 | Outpatient (CLI) | payer MEDICARE, OTHER | END | disposition home or self-care (01) | LOC: LABWHC1 15:07 | PROVIDERS: ATTEND Family Medicine | DX: I49.9 Cardiac arrhythmia, unspecified (principal); I45.10 Unspecified right bundle-branch block; I48.91 Unspecified atrial fibrillation; I42.2 Other hypertrophic cardiomyopathy; R94.31 Abnormal electrocardiogram [ECG] [EKG] | CPT/HCPCS: 36415; 93005 ==

== ENCOUNTER → 2023-11-17 | Outpatient (CLI) | payer MEDICARE, OTHER | END | disposition home or self-care (01) | LOC: LABWHC1 09:33 | PROVIDERS: ATTEND Family Medicine | DX: I49.9 Cardiac arrhythmia, unspecified (principal); I48.91 Unspecified atrial fibrillation; I45.10 Unspecified right bundle-branch block; R94.31 Abnormal electrocardiogram [ECG] [EKG] | CPT/HCPCS: 36415; 84439; 84443 ==

== ENCOUNTER → 2024-04-20 | Outpatient (CLI) | payer MEDICARE, OTHER ==
[2024-04-20 15:48] LABS: Magnesium 1.9 mg/dL (1.5-2.4)
[2024-04-20 15:57] LABS: Hepatitis B Surface Antigen Nonreactive (Nonreactive)
[2024-04-20 16:09] LABS: Basophils # (A) 0.03 X 10*3/uL (0.00-0.10); Basophils % (A) 0.8 %; Eosinophils # (A) 0.02 X 10*3/uL (0.04-0.35); Eosinophils % (A) 0.5 %; HCT 42.7 % (39.6-50.0); Immature Platelet Fraction 5.6 % (1.1-6.1); Lymphocytes % (A) 18.6 %; MCH 31.1 pg (27.0-32.0); MCHC 32.8 g/dL (32.0-37.0); MCV 94.9 FL (80.0-97.0); Mean Platelet Volume 10.9 FL (9.5-12.2); Monocytes # (A) 0.23 X 10*3/uL (0.20-1.00); Monocytes % (A) 6.1 %; NRBC Per 100 WBC 0 X 10*3/uL (0.00-0.01); Neutrophils # (A) 2.74 X 10*3/uL (1.80-7.70); Neutrophils % (A) 72.9 %; Platelet Count 54 X 10*3/uL (140-440); WBC 3.76 X 10*3/uL (4.50-10.00)
[2024-04-20 16:17] LABS: ALT 10 U/L (10-49); AST 15 U/L (14-35); Albumin 4.2 g/dL (3.8-4.9); Albumin/Globulin Ratio 2.47 Ratio (1.60-3.17); Alkaline Phosphatase 67 U/L (41-126); BUN/Creat Ratio 11.71 Ratio (12.00-20.00); Bilirubin, Conjugated 0.36 mg/dL (0.20-0.40); Bilirubin,Unconjugated 2.64 mg/dL (0.20-1.00); Blood Urea Nitrogen 16.4 mg/dL (9.0-27.0); Carbon Dioxide 27.3 mmol/L (21.6-31.8); Chloride 110 mmol/L (96-109); Globulin 1.7 g/dL (1.6-3.3); Glucose 134 mg/dL (70-110); Potassium 3.9 mmol/L (3.5-5.5); Sodium 147 mmol/L (135-145); Total Protein 5.9 g/dL (6.2-8.2)
[2024-04-20 16:18] LABS: Alpha Fetoprotein, Tumor Mkr <3.00 ng/mL (0.00-7.90)
[2024-04-21 10:14] LABS: Tacrolimus (FK506) 1.5 ng/mL (5.0-20.0)
[2024-04-23 11:40] LABS: Hepatitis B Virus DNA Not detected (Not detected); Hepatitis B Virus DNA, Quant <10 IU/mL (<10); Log HBV IU/mL <1.00 (<1.00)
== END | disposition home or self-care (01) ==
LOC: LABWHC1 08:42
PROVIDERS: ATTEND Internal Medicine
DX: Z00.00 Encounter for general adult medical examination without abnormal findings
CPT/HCPCS: 36415; 80048; 80076; 80197; 82105; 82465; 83735; 85025; 87340; 87517

== ENCOUNTER → 2024-07-23 | Outpatient (CLI) | payer MEDICARE, OTHER ==
--- NOTE | 2024-07-23 18:46 | XR ---
EXAMINATION TYPE: XR tibia fibula RT DATE OF EXAM: 07/23/2024 4:07 PM COMPARISON: 01/10/2019 CLINICAL INDICATION: Male, 69 years old with history of [id number] SPECIFIED DISORDERS OF BONE, LOW ER LE, pain TECHNIQUE: 2 view tibia and fibula view(s) obtained. FINDINGS: No acute fracture or dislocation evident. Joint spaces appear preserved. There is some mild soft tiss ue prominence over the distal anterior tibia. Follow up exams can be performed as clinically indicated. IMPRESSION: 1. Soft tissue focal prominence anterior distal third tibia. 2. Osseous structures appear intact [facility], , 07/23/2024 6:44 PM
== END | disposition home or self-care (01) ==
LOC: RADXRMAIN 14:47
PROVIDERS: ATTEND Family Medicine
DX: M89.8X6 Other specified disorders of bone, lower leg (principal)

== ENCOUNTER → 2025-01-03 | Outpatient (CLI) | payer MEDICARE, OTHER ==
[2025-01-03 15:36] LABS: Basophils # (A) 0.04 X 10*3/uL (0.00-0.10); Basophils % (A) 1.3 %; Eosinophils # (A) 0.03 X 10*3/uL (0.04-0.35); Eosinophils % (A) 0.9 %; HCT 36.1 % (39.6-50.0); HGB 11.6 g/dL (13.0-17.0); Immature Platelet Fraction 6.3 % (1.1-6.1); Lymphocytes # (A) 1.09 X 10*3/uL (0.90-5.00); Lymphocytes % (A) 34.2 %; MCH 30.4 pg (27.0-32.0); MCHC 32.1 g/dL (32.0-37.0); MCV 94.8 FL (80.0-97.0); Mean Platelet Volume 12.2 FL (9.5-12.2); Monocytes % (A) 6.3 %; NRBC Per 100 WBC 0 X 10*3/uL (0.00-0.01); Neutrophils # (A) 1.79 X 10*3/uL (1.80-7.70); Platelet Count 54 X 10*3/uL (140-440); RBC 3.81 X 10*6/uL (4.40-5.60); RDW 19.9 % (11.5-14.5); WBC 3.19 X 10*3/uL (4.50-10.00)
[2025-01-03 15:43] LABS: Albumin 4.2 g/dL (3.8-4.9); Albumin/Globulin Ratio 2.33 Ratio (1.60-3.17); Bilirubin, Conjugated 0.73 mg/dL (0.20-0.40); Bilirubin,Unconjugated 2.17 mg/dL (0.20-1.00); Globulin 1.8 g/dL (1.6-3.3); Magnesium 1.9 mg/dL (1.5-2.4); Total Bilirubin 2.9 mg/dL (0.3-1.2)
[2025-01-03 15:47] LABS: Hepatitis B Surface Antigen Nonreactive (Nonreactive)
[2025-01-03 16:05] LABS: Hepatitis B Surface AB- Quant 3.5 mIU/mL
[2025-01-04 09:22] LABS: Hepatitis B Virus DNA Not detected (Not detected); Hepatitis B Virus DNA, Quant <10 IU/mL (<10); Log HBV IU/mL <1.00 (<1.00)
== END | disposition home or self-care (01) ==
LOC: LABWHC1 08:20
PROVIDERS: ATTEND Internal Medicine
DX: D84.9 Immunodeficiency, unspecified (principal); Z11.59 Encounter for screening for other viral diseases; Z94.4 Liver transplant status
CPT/HCPCS: 36415; 80076; 80197; 82465; 83735; 85025; 86706; 87340; 87517

== ENCOUNTER → 2025-01-24 | Outpatient (CLI) | payer MEDICARE, OTHER ==
[2025-01-24 13:44] LABS: Anion Gap 10.00 mmol/L (4.00-12.00); BUN/Creat Ratio 16.53 Ratio (12.00-20.00); Blood Urea Nitrogen 28.1 mg/dL (9.0-27.0); Calcium 8.2 mg/dL (8.7-10.3); Carbon Dioxide 24.0 mmol/L (21.6-31.8); Chloride 106 mmol/L (96-109); Glucose 110 mg/dL (70-110); Potassium 4.0 mmol/L (3.5-5.5); Sodium 140 mmol/L (135-145)
== END | disposition home or self-care (01) ==
LOC: LABWHC1 08:41
PROVIDERS: ATTEND Internal Medicine Gastroenterology
DX: D84.9 Immunodeficiency, unspecified (principal); Z94.4 Liver transplant status; Z85.05 Personal history of malignant neoplasm of liver
CPT/HCPCS: 80048; 80197; 82105